=== PATIENT | female | born 1955 | race Caucasian/White ===

== ENCOUNTER 2020-01-30 12:13 | Emergency (ER) | payer MEDICAID, SELFPAY ==
[2020-01-30 12:27] VITALS: BP 137/56; PULSE 64; RESP 16; TEMP 36.8; O2SAT 98; BMI 27.3
--- NOTE | 2020-01-30 12:55 | PC.NURSE ---
THIS RN TO CHECK ON PT, PT NOT IN BED.
--- NOTE | 2020-01-30 13:04 | ED.FALL ---
HPI - Fall General Chief Complaint: Fall Stated Complaint: fall Time Seen by Provider: 01/30/20 12:46 Source: EMS Mode of arrival: EMS Limitations: no limitations History of Present Illness HPI Narrative: Patient presenting via EMS from [facility] with complaint of fall and pain in the right knee left hand and right-sided jaw. she has a history of substance abuse she denies using any drugs. she reports she tripped and fell. Patient was evaluated directly on arrival in the EMS stretcher. complaint: fall Fall from: standing Fall witnessed: no Place fall occurred: home Loss of consciousness: none Prolonged down time: no Symptoms prior to fall: none Context: tripped/slipped Location of injury: other ( Right-sided jaw, right knee, left hand) Location of injury - extremities: left: hand and right: knee Related Data Allergies Allergy/AdvReac Type Severity Reaction Status Date / Time metoclopramide [Reglan] Allergy Unknown Verified 07/08/15 00:00 From REGLAN Allergy Unknown UNKNOWN Uncoded 12/25/19 15:05 Review of Systems Review of Systems: Yes all other systems are reviewed and are negative [facility] Past Medical History Medical History (Updated 01/30/20 @ 13:09 by John Centeno NP) Asthma Social History Social History Alcohol intake: never Smoked in Last 30 Days: No Use of substances other than those prescribed or required for medical reasons: No Physical Exam Vital Signs: Vital Signs: Vital Signs Temp Pulse Resp BP Pulse Ox 01/30/20 12:27 98.2 F 64 16 137/56 L 98 Body Mass Index 27.3 Reviewed Const: General: cooperative and healthy appearing; No acute distress or intoxicated appearing Nutritional Appearance: average body habitus Orientation/consciousness: patient oriented x3 HENMT: Head: Yes normal to inspection Ears: hearing grossly normal bilaterally Eyes: General: appearance normal, both eyes and all related structures Visual Farfan: normal visual farfan by confrontation Neck: Neck: Yes normal visual inspection and No tender Thyroid: Thyroid normal Chest: Chest palpation & inspection: normal inspection of the chest Resp: Effort & Inspection: normal respiratory effort Cardio: Jugular venous distension: no JVD GI: Inspection: Yes normal to inspection Percussion: Yes normal to percussion Auscultation: normal bowel sounds : General: Yes no CVA tenderness Back/Spine/Pelvis: Back: no CVA tenderness Skin: General skin exam: no rashes or lesions noted Neuro: General: patient oriented x3 Extrem: Other: exam limited EMS stretcher but no obvious deformity. She does have slight ecchymosis to the forehead. Course Course Course Narrative: Patient evaluated directly upon arrival in EMS stretcher subsequently patient was placed in ED bed 13- after my initial evaluation I presented to bedside exactly 3 minutes later and patient had eloped. The RN along myself as well as other staff looked for the patient in the ED bathrooms as well as waiting room and attempted to call the number listed no answer. Seen walking out in no acute distress by triage nurse. Discharge Plan Discharge Clinical Impression: Fall Patient Disposition: Elopement
== END 2020-01-30 13:42 | disposition left against medical advice (07) ==
PROVIDERS: Emergency Provider Emergency Medicine
DX: T14.90XA Injury, unspecified, initial encounter (principal); W18.30XA Fall on same level, unspecified, initial encounter; Y93.9 Activity, unspecified; Y92.59 Other trade areas as the place of occurrence of the external cause; Y99.9 Unspecified external cause status
CPT/HCPCS: 99281; 99284

== ENCOUNTER 2020-02-23 15:55 | Emergency (ER) | payer MEDICAID, SELFPAY ==
[2020-02-23 17:06] VITALS: BP 110/77; PULSE 60; RESP 16; TEMP 36.6; O2SAT 100; BMI 27.3
--- NOTE | 2020-02-23 19:44 | PC.NURSE ---
PT WAS CALLED X 2 AT 1845 AND 1900. JONOT
--- NOTE | 2020-02-23 20:54 | PC.NURSE ---
NO ANSWER WHEN CALLED TO ROOM.
== END 2020-02-23 21:16 | disposition left against medical advice (07) ==
LOC: HO.ED 21:09
PROVIDERS: Emergency Provider Internal Medicine
DX: M54.5 Low back pain (principal)
CPT/HCPCS: 99282

== ENCOUNTER 2020-03-18 15:03 | Emergency (ER) | payer MEDICAID, SELFPAY ==
[2020-03-18 15:13] VITALS: BP 106/72; PULSE 80; RESP 18; TEMP 36.7; O2SAT 98; BMI 28.3
--- NOTE | 2020-03-18 17:33 | ED_ITS ---
HPI - General Adult General Chief complaint: General Medical Stated complaint: Insect Time Seen by Provider: 03/18/20 17:33 Source: patient Mode of arrival: ambulatory Limitations: no limitations History of Present Illness HPI narrative: 55-year-old female bloated past medical history presenting with complaint of states he feels like he has insect bites all over her she has been staying at a hotel and feels there is a infestation of bedbugs there. Onset (ago): day(s) Severity: mild Associated symptoms: denies other symptoms Treatments prior to arrival: none Related Data Previous Rx's Medication Instructions Recorded permethrin [Elimite] 1 appl TOPICAL Q14D #60 g 03/18/20 Allergies Allergy/AdvReac Type Severity Reaction Status Date / Time metoclopramide [Reglan] Allergy Unknown Verified 07/08/15 00:00 From REGLAN Allergy Unknown UNKNOWN Uncoded 12/25/19 15:05 Review of Systems Review of Systems: Constitutional: No Weight loss, No Fever, No Chills, No Night Sweats, No Fatigue, No Malaise ENT/Mouth: No Hearing loss, No Ear Pain, No Nasal Congestion, No Sinus Pain, No Hoarseness, No sore throat, No Rhinorrhea, No Swallowing Difficulty Eyes: No Eye Pain, No Swelling, No Redness, No Foreign Body, No Discharge, No Vision Changes Cardiovascular: No Chest Pain, No SOB, No Dyspnea on Exertion, No Orthopnea, No Edema, No Palpitations Respiratory: No Cough, No Sputum, No Wheezing Gastrointestinal: No Nausea, No Vomiting, No Diarrhea, No Constipation, No abdominal Pain Genitourinary: no irregular bleeding, No Dysuria, No Urinary Frequency, No Hematuria, No Urinary Incontinence, No Urgency Musculoskeletal: No joint pain, No Myalgias, No Joint Swelling Skin: No Skin Lesions, No rash Neuro: No Weakness, No Numbness, No Paresthesias Psych: No Anxiety/Panic, No Depression, No SI/HI/AH/VH, No Social Issues Heme/Lymph: No Bruising, No Bleeding,No Lymphadenopathy Endocrine: No Polyuria, No Polydipsia, No Temperature Intolerance Yes all other systems are reviewed and are negative [facility] Past Medical History Medical History (Updated 03/18/20 @ 17:36 by John Centeno NP) Asthma Social History Social History Alcohol intake: never Smoked in Last 30 Days: Yes Substance Use Type: Marijuana and Methamphetamine Advance Directives: No Advance Directives Information Provided: Yes Physical Exam Vital Signs: Vital Signs: Last Vital Signs Temp 98.1 F 03/18/20 15:13 Pulse 80 03/18/20 15:13 Resp 18 03/18/20 15:13 BP 106/72 03/18/20 15:13 Pulse Ox 98 03/18/20 15:13 Body Mass Index 28.3 Reviewed Const: General: cooperative and healthy appearing; No acute distress or intoxicated appearing Nutritional Appearance: average body habitus Orientation/consciousness: patient oriented x3 HENMT: Head: Yes normal to inspection Ears: hearing grossly normal bilaterally Eyes: General: appearance normal, both eyes and all related structures Visual Farfan: normal visual farfan by confrontation Chest: Chest palpation & inspection: normal inspection of the chest Resp: Effort & Inspection: normal respiratory effort Cardio: Jugular venous distension: no JVD Skin: Other: Few dispersed superficial excoriation carvajal consistent with scratch carvajal on her back some on the upper arm and her lower legs states will get these intermittently between his toes sometimes. No overt erythema. Neuro: General: patient oriented x3 Extrem: General: Yes normal to inspection Course Course Course Narrative: Bedbugs versus scabies will discharge with for medicine home care instructions, Dorothy care, prevention, follow-up provided. Discharge Plan Discharge Clinical Impression: Insect bite Qualifiers: Encounter type: initial encounter Patient Disposition: Home, Self-Care Instructions: Insect Bite or Sting (ED), Bed Bugs (ED) Additional Instructions: Wash all belongings with warm water Medication regimen as prescribed Consult past control as discussed Return if any concerns or worsening symptoms Thank you Prescriptions: New permethrin [Elimite] 5 % cream 1 appl topical Q14D Qty: 60 RF: 1 Referrals: [facility] [Primary Care Provider] - 10 days
== END 2020-03-18 17:55 | disposition home or self-care (01) ==
PROVIDERS: Emergency Provider Internal Medicine
DX: T14.8XXA Other injury of unspecified body region, initial encounter (principal); W57.XXXA Bitten or stung by nonvenomous insect and other nonvenomous arthropods, initial encounter; Y93.84 Activity, sleeping; Y92.59 Other trade areas as the place of occurrence of the external cause; Y99.9 Unspecified external cause status
CPT/HCPCS: 99284

== ENCOUNTER 2020-06-10 18:04 | Emergency (ER) | payer MEDICAID, SELFPAY ==
[2020-06-10 18:14] VITALS: BP 128/53; BP 140/70; PULSE 66; PULSE 74; RESP 12; TEMP 36.6; O2SAT 100; O2SAT 98; BMI 24.9
--- NOTE | 2020-06-10 18:35 | PC.NURSE ---
items decon by security, changed into hospital attire, waiting eval by provider. vss.
--- NOTE | 2020-06-10 18:37 | MHC.RECOVSUP ---
? Reason for consult Overdose o Current location: ED18H o Identified substance use concern: Heroin - Overdose - Withdrawal - Support ? Intervention: o Community resources provided o Harm reduction discussion ? Plan: o Patient to follow up with H after discharge ? Additional information: Patient cant go to detox today due to her property is in a hotel room. I was able to give patient resources to where she can go tomorrow and get the help she needs to get to detox.
--- NOTE | 2020-06-10 20:27 | ED.OVERDOSE ---
HPI - Overdose General Chief Complaint: Overdose Stated Complaint: OD Time Seen by Provider: 06/10/20 18:33 Source: EMS Mode of arrival: EMS Limitations: no limitations History of Present Illness HPI Narrative: 65-year-old female with history of polysubstance abuse occasional cocaine and opiates presenting via EMS for overdose on heroin. For EMS patient lethargic but easy to arouse to verbal stimuli she admitted to doing 4 bags of heroin which she states she occasionally does. She denies any intentional overdose to harm herself denies any other illicit drugs. Denies any medical problems at this time. complaint: accidental overdose Treatments Prior to Arrival: oxygen Related Data Previous Rx's Medication Instructions Recorded permethrin [Elimite] 1 appl TOPICAL Q14D #60 g 03/18/20 Allergies Allergy/AdvReac Type Severity Reaction Status Date / Time metoclopramide [Reglan] Allergy Unknown Verified 07/08/15 00:00 From REGLAN Allergy Unknown UNKNOWN Uncoded 12/25/19 15:05 Review of Systems Review of Systems: Constitutional: No Weight loss, No Fever, No Chills, No Night Sweats, No Fatigue, No Malaise ENT/Mouth: No Hearing loss, No Ear Pain, No Nasal Congestion, No Sinus Pain, No Hoarseness, No sore throat, No Rhinorrhea, No Swallowing Difficulty Eyes: No Eye Pain, No Swelling, No Redness, No Foreign Body, No Discharge, No Vision Changes Cardiovascular: No Chest Pain, No SOB, No Dyspnea on Exertion, No Orthopnea, No Edema, No Palpitations Respiratory: No Cough, No Sputum, No Wheezing, No Dyspnea Gastrointestinal: No Nausea, No Vomiting, No Diarrhea, No Constipation, No abdominal Pain, No Hematochezia, No Melena Genitourinary: no irregular bleeding, No Dysuria, No Urinary Frequency, No Hematuria, No Urinary Incontinence, No Urgency, No Flank Pain, No Urinary Flow Changes, No Hesitancy Musculoskeletal: No joint pain, No Myalgias, No Joint Swelling Skin: No Skin Lesions, No rash Neuro: No Weakness, No Numbness, No Paresthesias, No Loss of Consciousness, No Dizziness, No Headache Psych: No Anxiety/Panic, No Depression, No SI/HI/AH/VH Heme/Lymph: No Bruising, No Bleeding,No Lymphadenopathy Endocrine: No Polyuria, No Polydipsia, No Temperature Intolerance Yes all other systems are reviewed and are negative [facility] Past Medical History Medical History Asthma Social History Social History Alcohol intake: never Use of substances other than those prescribed or required for medical reasons: Yes Substance Use Type: Heroin Advance Directives: No Advance Directives Information Provided: Yes Physical Exam Vital Signs: Vital Signs: Last Vital Signs Temp 97.8 F 06/10/20 18:14 Pulse 66 06/10/20 18:14 Resp 12 06/10/20 18:14 BP 128/53 L 06/10/20 18:14 Pulse Ox 100 06/10/20 18:14 Body Mass Index 24.9 Reviewed Const: Other: Disheveled and poorly kempt. Found laying in recumbent position in bed at 45 degrees easy to arouse to verbal stimuli. She noted bedside monitor without any supplemental oxygen she is 100% on room air with heart rate 68. General: cooperative Nutritional Appearance: average body habitus Orientation/consciousness: patient oriented x3 HENMT: Head: Yes normal to inspection Ears: hearing grossly normal bilaterally Eyes: General: appearance normal, both eyes and all related structures Visual Farfan: normal visual farfan by confrontation Neck: Neck: Yes normal visual inspection, No positive Brudzinski's sign, No positive Kernig's sign and No tender Thyroid: Thyroid normal Chest: Chest palpation & inspection: normal inspection of the chest Resp: Effort & Inspection: normal respiratory effort Auscultation: clear to auscultation bilaterally Cardio: Jugular venous distension: no JVD Rhythm: regular rhythm Heart sounds: S1 normal heart sound present and S2 normal heart sound present GI: Inspection: Yes normal to inspection Palpation (GI): Soft to palpation Percussion: Yes normal to percussion Auscultation: normal bowel sounds : General: Yes no CVA tenderness Back/Spine/Pelvis: Back: no CVA tenderness Skin: General skin exam: no rashes or lesions noted Neuro: General: patient oriented x3 Extrem: General: Yes normal to inspection Course Course Course Narrative: Has been stable here observed for couple hours no SI or HI. Met was substance abuse counselor plan for recovery program tomorrow. Discharge Plan Discharge Clinical Impression: Drug overdose Patient Disposition: Home, Self-Care Instructions: Opioid Safety (ED), Polysubstance Abuse (ED) Additional Instructions: Please go directly to the detox program as discussed with the substance abuse counselor Prescriptions: No Action permethrin [Elimite] 5 % cream 1 appl topical Q14D Qty: 60 RF: 1 Referrals: [facility] [Primary Care Provider] - 2 days
[2020-06-10 20:34] VITALS: BP 127/50; PULSE 61; RESP 13; TEMP 36.8; O2SAT 99
--- NOTE | 2020-06-10 21:34 | PC.NURSE ---
PT REFUSING TO GO HOME AT THIS TIME. PT STATES I DON'T HAVE A PLACE TO GO, PT REFUSING TO GET D/C AT THIS TIME. CHG NURSE AT BEDSIDE TO CONVERSE WITH THE PT. WILL CONTINUE TO MONITOR PT AND TRY AGAIN TO DISCHARGE AT A LATER TIME.
== END 2020-06-10 22:44 | disposition home or self-care (01) ==
PROVIDERS: Emergency Provider Emergency Medicine
DX: T40.1X1A Poisoning by heroin, accidental (unintentional), initial encounter (principal); R53.83 Other fatigue; Y92.9 Unspecified place or not applicable; F11.10 Opioid abuse, uncomplicated; F14.10 Cocaine abuse, uncomplicated; J45.909 Unspecified asthma, uncomplicated
CPT/HCPCS: 99284

== ENCOUNTER 2020-08-05 05:10 | Emergency (ER) | payer MEDICAID, SELFPAY ==
--- NOTE | ~2020-08-05 | CT_ITS ---
EXAMINATION: CT ABDOMEN AND PELVIS WITH CONTRAST CLINICAL INFORMATION: Right lower quadrant pain, epigastric pain, status post fall hitting right side. COMPARISON: May 28, 2019 and January 12, 2008 TECHNIQUE: Multidetector volumetric images were obtained from the superior aspect of the liver through the pubic symphysis following administration 85 mL of Omnipaque 350 intravenous contrast. Sagittal and coronal reformatted images were obtained on the technologist's workstation. Oral contrast: No This CT examination was performed using dose optimization techniques as appropriate, variously including the following: *Automated exposure control *Adjustment of mA and/or kV according to patient size (this includes techniques or standardized protocols for targeted exams where dose is matched to indication/reason for exam; i.e. extremities or head) *Use of iterative reconstruction technique DLP: 495 mGy-cm FINDINGS: LUNG BASES: There is dependent atelectasis seen both lung bases. No pleural or pericardial effusion. LIVER, GALLBLADDER, AND BILIARY TREE: The liver is normal in size, shape, and attenuation. No focal hepatic lesion or biliary ductal dilatation is present. No hepatic laceration identified. No subcapsular fluid collection. The gallbladder is unremarkable with no evidence of radiopaque gallstones, gallbladder wall thickening, or obvious pericholecystic inflammatory changes. PANCREAS: There is a 1.3 cm cystic lesion seen adjacent to the body of the pancreas which may represent a benign serous or mucinous tumor. This has been present and stable since prior study of January 12, 2008 SPLEEN: Unremarkable. No laceration or subcapsular collection identified. ADRENAL GLANDS: Unremarkable. KIDNEYS AND URETERS: The kidneys are normal in size, shape, and attenuation. There are a few bilateral renal cysts present. The largest is within the upper pole of the right kidney measuring 2.6 cm in diameter. No hydronephrosis, hydroureter, or calculi seen. No perinephric stranding. No subcapsular fluid collection. BLADDER: Unremarkable. GASTROINTESTINAL TRACT: There is a small hiatal hernia present. No dilated loops of large or small bowel are evident. No pericolonic inflammatory change. There is mild diverticulosis of the sigmoid colon without evidence of acute diverticulitis. There is no evidence of acute appendicitis. No free air or free fluid. ABDOMINAL WALL: No significant hernia is appreciated. LYMPH NODES: No lymphadenopathy appreciated. VASCULAR: Visceral vessels are patent. No abdominal aortic aneurysm. Portal vein is patent. PELVIC VISCERA: Unremarkable. No free fluid. OSSEOUS STRUCTURES: There is an acute fracture of the posterior lateral aspect of the right 11th rib. CT/CT abdomen pelvis w con IMPRESSION: No evidence of solid organ laceration or subcapsular fluid collection. .Stable 1.3 cm cystic lesion adjacent to the artery of the pancreas. Bilateral renal cysts. Acute nondisplaced fracture of the right 11th rib.
--- NOTE | ~2020-08-05 | XR_ITS ---
EXAMINATION: XR RIBS, RIGHT CLINICAL INFORMATION: Painful ribs COMPARISON: 07/25/2014 TECHNIQUE: 3 views of the right ribs were obtained. FINDINGS: The visualized lungs are clear. No pneumothorax. No significant pleural effusion. The cardiomediastinal silhouette is unremarkable. Targeted right rib radiographs show no fracture or cortical disruption. Alignment is maintained. XR/XR ribs RT 2V IMPRESSION: No acute abnormality of the right ribs identified.
[2020-08-05 05:27] VITALS: BP 154/98; PULSE 69; RESP 16; TEMP 36.6; O2SAT 100; BMI 31.2
[2020-08-05 05:34] VITALS: BP 154/98; PULSE 76; O2SAT 100
--- NOTE | 2020-08-05 06:08 | ED.FALL ---
HPI - Fall General Chief Complaint: Fall Stated Complaint: R back pain s/p fall Time Seen by Provider: 08/05/20 05:52 Source: patient and EMS Mode of arrival: EMS Limitations: no limitations History of Present Illness HPI Narrative: Patient comes emergency room complaining of right rib pain . Patient states she was trying to unclog her bathroom, patient slipped, fell into the bathtub, hit her ribs on the right side. Patient states she did not hit her head, did not lose consciousness, denies being on blood thinners. Patient states she was able to get up, call for help. Patient is by herself. complaint: fall Related Data Previous Rx's Medication Instructions Recorded permethrin [Elimite] 1 appl TOPICAL Q14D #60 g 03/18/20 Allergies Allergy/AdvReac Type Severity Reaction Status Date / Time metoclopramide [Reglan] Allergy Unknown Verified 07/08/15 00:00 From REGLAN Allergy Unknown UNKNOWN Uncoded 12/25/19 15:05 Review of Systems Review of Systems: Constitutional : No Weight loss, No Fever, No Chills, No Night Sweats, No Fatigue, No Malaise ENT/Mouth : No Hearing loss, No Ear Pain, No Nasal Congestion, No Sinus Pain, No Hoarseness, No sore throat, No Rhinorrhea, No Swallowing Difficulty Eyes: No Eye Pain, No Swelling, No Redness, No Foreign Body, No Discharge, No Vision Changes Cardiovascular : No Chest Pain, No SOB, No Dyspnea on Exertion, No Orthopnea, No Edema, No Palpitations Respiratory : No Cough, No Sputum, No Wheezing, No Smoke Exposure, No Dyspnea, complaining of right rib pain Gastrointestinal : No Nausea, No Vomiting, No Diarrhea, No Constipation, No abdominal Pain, No Hematochezia, No Melena Genitourinary : no irregular bleeding, No Dysuria, No Urinary Frequency, No Hematuria, No Urinary Incontinence, No Urgency, No Flank Pain, No Urinary Flow Changes, No Hesitancy Musculoskeletal : No joint pain, No Myalgias, No Joint Swelling Skin : No Skin Lesions, No rash Neuro : No Weakness, No Numbness, No Paresthesias, No Loss of Consciousness, No Dizziness, No Headache Psych : No Anxiety/Panic, No Depression, No SI/HI/AH/VH, No Social Issues, Heme/Lymph: No Bruising, No Bleeding,No Lymphadenopathy Endocrine : No Polyuria, No Polydipsia, No Temperature Intolerance [facility] Past Medical History Medical History (Updated 08/05/20 @ 06:10 by Magdalena Andrade MD) Asthma Substance abuse Social History Social History Alcohol intake: never Substance Use Type: Heroin Advance Directives: No Physical Exam Vital Signs: Vital Signs: Last Vital Signs Temp 98.1 F 08/05/20 07:22 Pulse 65 08/05/20 07:22 Resp 16 08/05/20 07:22 BP 131/75 08/05/20 07:22 Pulse Ox 97 08/05/20 07:22 Body Mass Index 31.2 Appearance: Alert. Oriented X3. No acute distress. Eyes: Pupils equal, round and reactive to light. ENT: Pharynx normal. Neck: Normal inspection. Neck supple. No lymph nodes noted. No crepitus CVS: Normal heart rate and rhythm. Pulses normal. Normal S1 and S2 Respiratory: No respiratory distress. Breath sounds normal. No Wheezing. No rales . Pain to palpation on the right ribs Abdomen: Soft and nontender. No rigidity. No distention. Abdominal tenderness on deep palpation in the right lower quadrant and epigastric pain with rebound and guarding Skin: Skin warm and dry. Normal skin color. Normal skin turgor. Extremities: No lower extremity edema. No lower extremity edema. No Lacerations. No Rash Neuro: Oriented X 3. No motor deficit. No sensory deficit. Moving all extermities. No slurred speech. Course Course Course Narrative: Chest x-ray did not show any rib fractures. CT scan and labs pending. Sign-out given to Dr. Barton Discharge Plan Discharge Prescriptions: No Action permethrin [Elimite] 5 % cream 1 appl topical Q14D Qty: 60 RF: 1
[2020-08-05 07:22] VITALS: BP 131/75; PULSE 65; RESP 16; TEMP 36.7; O2SAT 97
[2020-08-05 08:34] LABS: MANUAL DIFF FLAG NO
[2020-08-05 08:40] LABS: Basophils Percent Auto 0.1 % (0-2); Eosinophils Percent Auto 0.3 % (0-4); Hematocrit 35.9 % (37-47); Hemoglobin 11.5 g/dl (12.0-16.0); Imm Gran Abs Auto 0.02 X10*3/uL (0.00-0.03); Imm Gran Pct Auto 0.3 % (0.0-0.4); Lymphocytes Absolute Auto 1.8 X10*3/uL (1.2-4.9); Lymphocytes Percent Auto 22.1 % (20-40); Mean Corpuscular Hemoglobin 31.9 pg (27.0-33.0); Mean Corpuscular Volume 99.4 fL (80-98); Mean Platelet Volume 9.5 fL (9.4-12.3); Monocytes Absolute Auto 0.4 X10*3/uL (0.1-1.2); Monocytes Percent Auto 5.4 % (2-11); Neutrophils Absolute Auto 5.7 X10*3/uL (2.0-8.3); Neutrophils Percent Auto 71.8 % (45-73); Platelet Count 229 X10*3/uL (160-400); Red Blood Count 3.61 X10*6/uL (4.20-5.50)
[2020-08-05 09:00] LABS: Alanine Aminotransferase 13 U/L (0-31); Albumin Level 3.9 g/dL (3.5-5.0); Alkaline Phosphatase 86 U/L (39-117); Anion Gap 10 (12-20); Aspartate Amino Transferase 19 U/L (5-31); Bilirubin Direct 0.2 mg/dL (0.0-0.5); Bilirubin Total 0.4 mg/dL (0.0-1.0); Blood Urea Nitrogen 20 mg/dL (9-16); Carbon Dioxide 27 mmol/L (22-29); Chloride 106 mmol/L (96-108); Creatinine Clr Calc Pharmacy 60.4; Estimated Glomerular Filt Rate > 60; Glucose Random 92 mg/dL (60-115); Lipase 8 U/L (8-78); Potassium 4.3 mmol/L (3.3-5.1); Sodium 139 mmol/L (135-145); Total Protein 6.7 g/dL (6.5-8.0)
[2020-08-05 09:08] VITALS: BP 142/71; PULSE 65; RESP 16; O2SAT 98
[2020-08-05] MEDS: iohexoL 350 MG/ML 100 ML INFUS..BTL 85 ML IV (09:25)
[2020-08-05 13:20] VITALS: BP 149/66; PULSE 59; RESP 16; O2SAT 98
[2020-08-05] MEDS: Ketorolac Tromethamine 60 MG/2 ML VIAL IM (13:22)
== END 2020-08-05 13:56 | disposition home or self-care (01) ==
PROVIDERS: Emergency Provider Emergency Medicine
DX: S22.31XA Fracture of one rib, right side, initial encounter for closed fracture (principal); R07.81 Pleurodynia; R10.9 Unspecified abdominal pain; W01.10XA Fall on same level from slipping, tripping and stumbling with subsequent striking against unspecified object, initial encounter; Y93.E9 Activity, other interior property and clothing maintenance; Y92.002 Bathroom of unspecified non-institutional (private) residence as the place of occurrence of the external cause; Y99.9 Unspecified external cause status; Z79.899 Other long term (current) drug therapy
CPT/HCPCS: 36415; 71100; 74177; 80048; 80076; 83690; 85025; 96372; 99283; J1885; Q9967

== ENCOUNTER 2021-12-10 22:07 | Emergency (ER) | payer OTHER, MEDICAID, SELFPAY ==
--- NOTE | ~2021-12-10 | XR_ITS ---
EXAMINATION: XR CHEST 1V XR SHOULDER RT MIN 2V CLINICAL INFORMATION: Fall. Shortness of breath. R. shoulder pain COMPARISON: Test x-ray dated 07/25/2014 TECHNIQUE: AP view of the chest and 3 views of the right shoulder FINDINGS: Normal symmetric lung volumes. No parenchymal consolidation. No pleural effusion. No pneumothorax. Cardiomediastinal silhouette and pulmonary vascularity are within normal limits. No acute osseous abnormalities. Degenerative changes of the glenohumeral and acromioclavicular joints with small moderate marginal osteophytes of the acromioclavicular joint. Soft tissues unremarkable. XR/XR shoulder RT min 2V IMPRESSION: Clear lungs; no pneumothorax. No fractures.
--- NOTE | ~2021-12-10 | XR_ITS ---
EXAMINATION: XR CHEST 1V XR SHOULDER RT MIN 2V CLINICAL INFORMATION: Fall. Shortness of breath. R. shoulder pain COMPARISON: Test x-ray dated 07/25/2014 TECHNIQUE: AP view of the chest and 3 views of the right shoulder FINDINGS: Normal symmetric lung volumes. No parenchymal consolidation. No pleural effusion. No pneumothorax. Cardiomediastinal silhouette and pulmonary vascularity are within normal limits. No acute osseous abnormalities. Degenerative changes of the glenohumeral and acromioclavicular joints with small moderate marginal osteophytes of the acromioclavicular joint. Soft tissues unremarkable. XR/XR chest 1V IMPRESSION: Clear lungs; no pneumothorax. No fractures.
--- NOTE | ~2021-12-10 | CT_ITS ---
EXAMINATION: CT HEAD WITHOUT CONTRAST CT CERVICAL SPINE WITHOUT CONTRAST CLINICAL INFORMATION: Head strike. Altered mental status COMPARISON: CT head 05/27/2019 TECHNIQUE: Imaging was performed from the skull base to vertex without intravenous administration of contrast. In addition, helical noncontrast CT imaging was acquired through the cervical spine and source images were reviewed along with axial reconstructions and sagittal and coronal MPRs. [This CT examination was performed using dose optimization techniques as appropriate, variously including the following: *Automated exposure control *Adjustment of mA and/or kV according to patient size (this includes techniques or standardized protocols for targeted exams where dose is matched to indication/reason for exam; i.e. extremities or head) *Use of iterative reconstruction technique] DLP: 937 mGy-cm FINDINGS: HEAD: No intracranial mass, hemorrhage, or midline shift is visualized. The ventricles and sulci are proportional. No extra-axial collections are identified. The paranasal sinuses and mastoid air cells are well aerated. CERVICAL SPINE: There is no evidence of acute cervical spine fracture. Vertebral bodies remain normal in height. Cervical vertebrae have normal alignment. [There is multilevel degenerative spondylosis of the cervical spine with disc height narrowing and endplate spurs and facet joint arthrosis] No pre- or paravertebral soft tissue abnormality is identified. Limited assessment of the lung apices is unremarkable. CT/CT cervical spine wo IV con IMPRESSION: 1. No acute intracranial pathology. 2. No CT evidence of acute cervical spine fracture or traumatic subluxation
--- NOTE | ~2021-12-10 | XR_ITS ---
EXAMINATION: XR KNEE, LEFT CLINICAL INFORMATION: Pain COMPARISON: None TECHNIQUE: Four views of the left knee. FINDINGS: No acute fracture or dislocation. Moderate medial tibiofemoral compartment joint space narrowing associated marginal osteophytes and subchondral sclerosis. Degenerative subchondral cyst present within the medial tibial plateau. Smaller marginal osteophytes of the patellofemoral and lateral tibiofemoral compartments. No joint effusion. XR/XR knee LT 4V IMPRESSION: No acute fracture or dislocation.
--- NOTE | ~2021-12-10 | CT_ITS ---
EXAMINATION: CT HEAD WITHOUT CONTRAST CT CERVICAL SPINE WITHOUT CONTRAST CLINICAL INFORMATION: Head strike. Altered mental status COMPARISON: CT head 05/27/2019 TECHNIQUE: Imaging was performed from the skull base to vertex without intravenous administration of contrast. In addition, helical noncontrast CT imaging was acquired through the cervical spine and source images were reviewed along with axial reconstructions and sagittal and coronal MPRs. [This CT examination was performed using dose optimization techniques as appropriate, variously including the following: *Automated exposure control *Adjustment of mA and/or kV according to patient size (this includes techniques or standardized protocols for targeted exams where dose is matched to indication/reason for exam; i.e. extremities or head) *Use of iterative reconstruction technique] DLP: 937 mGy-cm FINDINGS: HEAD: No intracranial mass, hemorrhage, or midline shift is visualized. The ventricles and sulci are proportional. No extra-axial collections are identified. The paranasal sinuses and mastoid air cells are well aerated. CERVICAL SPINE: There is no evidence of acute cervical spine fracture. Vertebral bodies remain normal in height. Cervical vertebrae have normal alignment. [There is multilevel degenerative spondylosis of the cervical spine with disc height narrowing and endplate spurs and facet joint arthrosis] No pre- or paravertebral soft tissue abnormality is identified. Limited assessment of the lung apices is unremarkable. CT/CT head/brain wo IV con IMPRESSION: 1. No acute intracranial pathology. 2. No CT evidence of acute cervical spine fracture or traumatic subluxation
--- NOTE | ~2021-12-10 | CT_ITS ---
EXAMINATION CT CHEST, ABDOMEN AND PELVIS WITH CONTRAST CLINICAL INFORMATION: Fall. Altered mental status. COMPARISON: CT abdomen/pelvis dated 08/05/2020 TECHNIQUE: Multidetector volumetric CT imaging of the chest, abdomen and pelvis was obtained after the administration of 85 mL of intravenous Omnipaque 350 without immediate adverse reactions. Coronal and sagittal reformats were reviewed. This CT examination was performed using dose optimization techniques as appropriate, variously including the following: *Automated exposure control *Adjustment of mA and/or kV according to patient size (this includes techniques or standardized protocols for targeted exams where dose is matched to indication/reason for exam; i.e. extremities or head) *Use of iterative reconstruction technique DLP: 658 mGy-cm. FINDINGS: CHEST LUNGS/PLEURA: The lungs are clear with no evidence of inflammation or nodules. There is no pleural effusion. No pleural mass or thickening. MEDIASTINUM/TYLER: Mild cardiomegaly. No pericardial effusion. Great vessels normal caliber. No mediastinal or hilar lymphadenopathy. Imaged lower neck unremarkable. CHEST WALL/AXILLA: Unremarkable. ABDOMEN/PELVIS HEPATOBILIARY: Liver normal in size, contour and morphology. No suspicious lesions. No intra or extrahepatic biliary dilation. Gallbladder unremarkable. 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 SPLEEN: Unremarkable. ADRENAL GLANDS: Unremarkable. KIDNEYS, URETERS AND BLADDER: Kidneys normal in size, axis and morphology demonstrating symmetric enhancement. No hydronephrosis or urinary calculi. Stable benign cysts. No follow-up required. Ureters normal in course and caliber. Bladder grossly unremarkable.. GASTROINTESTINAL TRACT: Small sliding-type hiatal hernia. Sigmoid colonic diverticulosis. No evidence of diverticulitis. Normal appendix. Small bowel unremarkable. PELVIC VISCERA: Uterus and adnexa unremarkable. LYMPH NODES: No lymphadenopathy. PERITONEUM/BODY WALL: Unremarkable. VASCULAR STRUCTURES: Aorta is atherosclerotic but normal caliber. OSSEOUS STRUCTURES No acute or suspicious osseous abnormalities. Healed left lateral fourth through sixth rib fractures. CT/CT abdomen pelvis w IV con IMPRESSION: * No acute traumatic injury within the chest, abdomen and pelvis. * No acute fractures. * Sigmoid colonic diverticulosis without evidence of diverticulitis. 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 The ACR does not mandate follow-up for pancreatic cystic lesions which have been stable for more than 10 years.
--- NOTE | 2021-12-10 22:20 | ECG_ITS ---
Test Reason : AMS Blood Pressure : / mmHG Vent. Rate : 061 BPM Atrial Rate : 061 BPM P-R Int : 128 ms QRS Dur : 084 ms QT Int : 454 ms P-R-T Axes : 076 071 053 degrees QTc Int : 457 ms Normal sinus rhythm Normal ECG When compared with ECG of 28-MAY-2019 11:42, Vent. rate has decreased BY 48 BPM Referred By: Debbie Almazan Electronically Signed By:EVAN TAPIA
--- NOTE | 2021-12-10 22:21 | ED.GENADULT ---
HPI - General Adult General Chief complaint: Fall <JAZMÍN Enciso Last Filed: 12/11/21 01:51> Stated complaint: ETOH/Drug Use/Fall <JAZMÍN Enciso Last Filed: 12/11/21 01:51> Time Seen by Provider: 12/10/21 22:20 <JAZMÍN Enciso Last Filed: 12/11/21 01:51> Source: patient and EMS <JAZMÍN Enciso Last Filed: 12/11/21 01:51> Mode of arrival: EMS <JAZMÍN Enciso Last Filed: 12/11/21 01:51> Limitations: other (under the influence of drugs ) <JAZMÍN Enciso Last Filed: 12/11/21 01:51> History of Present Illness HPI narrative: This is a 66-year-old female presenting to the emergency department with EMS complaining of right shoulder pain, left knee pain, headache status post trip and fall, patient reports that today she used multiple drugs around 17:30. She reports using a few bags of heroin and smoking crack, she also reports drinking alcohol she tells me she had 3 mixed drinks. She reports after drinking she tripped and fell, she tells me she is not sure how she landed, she tells me she did not lose consciousness. She is currently reporting a diffuse headache, without vision changes, dizziness or weakness. She reports it feels like her typical headache. Patient was collared by the fire department. At this time denies chest pain, shortness of breath, nausea, vomiting, abdominal pain, vision changes, dizziness, weakness. Patient is not on blood thinners. GCS score 15 on arrival. NIH stroke scale 0. <JAZMÍN Enciso Last Filed: 12/11/21 01:51> Related Data Home medications: Previous Rx's Medication Instructions Recorded permethrin 5 % topical cream 1 appl topical Q14D 2 doses #60 03/18/20 (Elimite) grams naproxen 500 mg tablet (Naprosyn) 500 mg PO BID #20 tabs 08/05/20 <JAZMÍN Enciso Last Filed: 12/11/21 01:51> Allergies/adverse reactions: Allergies Allergy/AdvReac Type Severity Reaction Status Date / Time metoclopramide [Reglan] Allergy Unknown Verified 07/08/15 00:00 From [facility] Allergy Unknown UNKNOWN Uncoded 12/25/19 15:05 <JAZMÍN Enciso - Last Filed: 12/11/21 01:51> Review of Systems Review of Systems: Constitutional : No Weight loss, No Fever, No Chills, No Fatigue, No Malaise ENT/Mouth : No sore throat, No Rhinorrhea Eyes: No Eye Pain, No Swelling, No Redness Cardiovascular : No Chest Pain, No SOB, No Dyspnea on Exertion, No Orthopnea, No Edema, No Palpitations Respiratory : No Cough, No Sputum, No Wheezing Gastrointestinal : No Nausea, No Vomiting, No Diarrhea, No Constipation, No abdominal Pain, No Hematochezia, No Melena Genitourinary : No Dysuria, No Urinary Frequency, No Hematuria, Musculoskeletal : + joint pain, No Myalgias, No Joint Swelling Skin : No Skin Lesions, No rash Neuro : No Weakness, No Numbness, No Dizziness, + Headache All other systems reviewed and are negative <JAZMÍN Enciso - Last Filed: 12/11/21 01:51> Yes all other systems are reviewed and are negative <JAZMÍN Enciso - Last Filed: 12/11/21 01:51> ON LICENSE OF [facility] Past Medical History Attestation statement: The following information was validated with the patient. <JAZMÍN Enciso - Last Filed: 12/11/21 01:51> Source: old records reviewed and nursing notes reviewed <JAZMÍN Enciso - Last Filed: 12/11/21 01:51> Medical History: Medical History Asthma Substance abuse <JAZMÍN Enciso Last Filed: 12/11/21 01:51> Social History Social History: Social History Alcohol intake: never Patient Tobacco Use Status: Current everyday Tobacco user Smoked in Last 30 Days: Yes Use of substances other than those prescribed or required for medical reasons: Yes Substance Use Type: Crack/Cocaine and Heroin Last Used Substance: Hours (ago) Advance Directives: No Advance Directives Information Provided: No <JAZMÍN Enciso - Last Filed: 12/11/21 01:51> Physical Exam ED Vital Signs: Vital Signs - 24 hr 12/10/21 22:54 12/11/21 01:25 12/11/21 03:54 Temperature 98.7 F 98.2 F Pulse Rate 66 61 74 Respiratory Rate 15 15 16 Blood Pressure 106/49 L 120/72 Pulse Oximetry 100 99 98 Oxygen Delivery Method Room Air Room Air Room Air BMI result Body Mass Index 27.3 <JAZMÍN Enciso - Last Filed: 12/11/21 01:51> Vital Signs - 24 hr 12/10/21 22:54 12/11/21 01:25 12/11/21 03:54 Temperature 98.7 F 98.2 F Pulse Rate 66 61 74 Respiratory Rate 15 15 16 Blood Pressure 106/49 L 120/72 Pulse Oximetry 100 99 98 Oxygen Delivery Method Room Air Room Air Room Air BMI result Body Mass Index 27.3 <Melvin Ahn MD - Last Filed: 12/11/21 07:08> Appearance: Alert.? Oriented X3.? No acute distress.? Head: Normocephalic, atraumatic, no step-offs or deformities Eyes: Pupils equal, round and reactive to light.? Neck: Normal inspection.? Neck supple.? Patient in cervical collar. CVS: Normal heart rate and rhythm.? Pulses normal.? Respiratory: No respiratory distress.? Breath sounds normal.? Abdomen: Soft and nontender.? Skin: Skin warm and dry.? Normal skin color.? Normal skin turgor.? Extremities: No lower extremity edema.? No calf ttp. 5/5 strength to bilateral upper and lower extremities Back: No midline tenderness, no C-spine tenderness, full range of motion, no CVA tenderness bilaterally Neuro: Oriented X 3.? No motor deficit.? No sensory deficit. CN 2-12 intact . Normal [id number], [id number]. Steady tandem gait. No saddle paresthesias. <JAZMÍN Enciso - Last Filed: 12/11/21 01:51> Course Reevaluation(s) Reevaluation #1: Patient's CBC with a slight anemia, around patient's baseline. Normal sinus rhythm, no signs of acute ischemia. CT of head and cervical spine with no acute findings. CT of chest, abdomen and pelvis pending, x-rays pending. Chemistry, UA, urine toxicology, ethanol pending. Sign out to Dr. Ahn pending listed above. <JAZMÍN Enciso - Last Filed: 12/11/21 01:51> Time: 01:48 <JAZMÍN Enciso - Last Filed: 12/11/21 01:51> Reevaluation #2: I assumed care of this patient from my colleague, physician resident assistant, Debbie Almazan at 02:00 hours Pending the patient's radiology evaluation. The patient had a CT scan of the chest, abdomen pelvis which did not reveal any acute findings. The patient had an x-ray of her shoulder any which revealed no acute fractures. Patient's urine tox screen was positive for opiates, fentanyl and cocaine. I did discuss these findings with the patient. The patient states she is currently in a methadone program and does not want any opiate counseling. The patient was discharged with intranasal Narcan, printed and verbal instructions. <Melvin Ahn MD - Last Filed: 12/11/21 07:08> Time: 07:03 <Melvin Ahn MD - Last Filed: 12/11/21 07:08> Medical Decision Making [facility] Narrative Medical decision making narrative: [id number] 66-year-old male presents with polysubstance abuse, ethanol use, status post fall complaining of right shoulder pain, headache, left knee PE. Denies SI and HI. Physical examination benign. In at this time is medical clearance, substance use disorder evaluation. <JAZMÍN Enciso - Last Filed: 12/11/21 01:51> Medical Records Medical records reviewed: Yes I reviewed the patient's medical records. <JAZMÍN Enciso - Last Filed: 12/11/21 01:51> Lab Data Lab results reviewed: Yes I reviewed the patient's lab results. <JAZMÍN Enciso Last Filed: 12/11/21 01:51> Result diagrams: : 12/11/21 01:19 12/11/21 01:19 <JAZMÍN Enciso - Last Filed: 12/11/21 01:51> Labs: Lab Results 12/11/21 12/11/21 12/11/21 Range/Units 01:04 01:19 01:19 WBC 4.6 L (4.8-10.8) X10*3/uL RBC 3.02 L (4.20-5.50) X10*6/uL Hgb 9.9 L (12.0-16.0) g/dl Hct 29.9 L (37.0-47.0) % MCV 99.0 H (80.0-98.0) fL MCH 32.8 (27.0-33.0) pg MCHC 33.1 (31.0-35.0) g/dl RDW 12.9 (11.0-16.0) % Plt Count 174 (160-400) X10*3/uL MPV 9.7 (9.4-12.3) fL Immature Gran % (Auto) 0.2 (0.0-0.4) % Neut % (Auto) 47.0 (45-73) % Lymph % (Auto) 44.2 H (20-40) % Bea[place]gard % (Auto) 7.1 (2-11) % Eos % (Auto) 1.1 (0-4) % Baso % (Auto) 0.4 (0-2) % Lymph # (Auto) 2.1 (1.2-4.9) X10*3/uL [place] # (Auto) 0.3 (0.1-1.2) X10*3/uL Eos # (Auto) 0.1 (0.0-0.4) X10*3/uL Baso # (Auto) 0.0 (0.0-0.2) X10*3/uL Abs Immat Gran (auto) 0.01 (0.00-0.03) X10*3/uL Absolute Neuts (auto) 2.2 (2.0-8.3) x10*3/uL Absolute Nucleated RBC 0.000 (0.0-0.012) X10*3/uL Nucleated RBC % (auto) 0.0 (0.0-0.2) /100WBC Sodium 141 (135-145) mmol/L Potassium 3.6 (3.3-5.1) mmol/L Chloride 105 (96-108) mmol/L Carbon Dioxide 29 (22-29) mmol/L Anion Gap 11 L (12-20) BUN 11 (9-16) mg/dL Creatinine 0.82 (0.5-1.4) mg/dL Estim Creat Clear Calc 59.3 Estimated GFR > 60 Random Glucose 82 (60-115) mg/dL Calcium 8.2 L D (8.4-10.2) mg/dL Magnesium 2.0 (1.6-2.6) mg/dL Total Bilirubin 0.4 (0.0-1.0) mg/dL AST 23 (5-31) U/L ALT 11 (0-31) U/L Alkaline Phosphatase 74 (39-117) U/L Total Protein 5.9 L (6.5-8.0) g/dL Albumin 3.4 L (3.5-5.0) g/dL Beta HCG, Quant mIU/mL Urine Color Urine Appearance Urine pH (5.0-9.0) Ur Specific [place] (1.005-1.025) Urine Protein (Neg-Trace) mg/dL Urine Glucose (UA) (Negative) mg/dL Urine Ketones (Negative) mg/dL Urine Blood (Negative) Urine Nitrite (Negative) Ur Leukocyte Esterase (Negative) Urine Opiates Screen (Not Detect) Urine Fentanyl Screen (Not Detect) Ur Barbiturates Screen (Not Detect) Ur Phencyclidine Scrn (Not Detect) Ur Amphetamines Screen (Not Detect) U Benzodiazepines Scrn (Not Detect) Urine Cocaine Screen (Not Detect) U Marijuana (THC) Screen (Not Detect) Ethyl Alcohol < 10 mg/dL COVID-19 (ANNELISE) Negative (Negative) COVID-19 Clin Com See Note 12/11/21 12/11/21 12/11/21 Range/Units 01:19 04:46 04:46 WBC (4.8-10.8) X10*3/uL RBC (4.20-5.50) X10*6/uL Hgb (12.0-16.0) g/dl Hct (37.0-47.0) % MCV (80.0-98.0) fL MCH (27.0-33.0) pg MCHC (31.0-35.0) g/dl RDW (11.0-16.0) % Plt Count (160-400) X10*3/uL MPV (9.4-12.3) fL Immature Gran % (Auto) (0.0-0.4) % Neut % (Auto) (45-73) % Lymph % (Auto) (20-40) % [place] % (Auto) (2-11) % Eos % (Auto) (0-4) % Baso % (Auto) (0-2) % Lymph # (Auto) (1.2-4.9) X10*3/uL [place] # (Auto) (0.1-1.2) X10*3/uL Eos # (Auto) (0.0-0.4) X10*3/uL Baso # (Auto) (0.0-0.2) X10*3/uL Abs Immat Gran (auto) (0.00-0.03) X10*3/uL Absolute Neuts (auto) (2.0-8.3) x10*3/uL Absolute Nucleated RBC (0.0-0.012) X10*3/uL Nucleated RBC % (auto) (0.0-0.2) /100WBC Sodium (135-145) mmol/L Potassium (3.3-5.1) mmol/L Chloride (96-108) mmol/L Carbon Dioxide (22-29) mmol/L Anion Gap (12-20) BUN (9-16) mg/dL Creatinine (0.5-1.4) mg/dL Estim Creat Clear Calc Estimated GFR Random Glucose (60-115) mg/dL Calcium (8.4-10.2) mg/dL Magnesium (1.6-2.6) mg/dL Total Bilirubin (0.0-1.0) mg/dL AST (5-31) U/L ALT (0-31) U/L Alkaline Phosphatase (39-117) U/L Total Protein (6.5-8.0) g/dL Albumin (3.5-5.0) g/dL Beta HCG, Quant 3 mIU/mL Urine Color Yellow Urine Appearance Clear Urine pH 7.5 (5.0-9.0) Ur Specific [place] >= 1.030 H (1.005-1.025) Urine Protein Negative (Neg-Trace) mg/dL Urine Glucose (UA) Negative (Negative) mg/dL Urine Ketones Negative (Negative) mg/dL Urine Blood Negative (Negative) Urine Nitrite Negative (Negative) Ur Leukocyte Esterase Negative (Negative) Urine Opiates Screen POSITIVE H (Not Detect) Urine Fentanyl Screen POSITIVE H (Not Detect) Ur Barbiturates Screen Not Detected (Not Detect) Ur Phencyclidine Scrn Not Detected (Not Detect) Ur Amphetamines Screen Not Detected (Not Detect) U Benzodiazepines Scrn Not Detected (Not Detect) Urine Cocaine Screen POSITIVE H (Not Detect) U Marijuana (THC) Screen Not Detected (Not Detect) Ethyl Alcohol mg/dL COVID-19 ([facility]ISE) (Negative) COVID-19 Clin Com <JAZMÍN Enciso - Last Filed: 12/11/21 01:51> Lab Results 12/11/21 12/11/21 12/11/21 Range/Units 01:04 01:19 01:19 WBC 4.6 L (4.8-10.8) X10*3/uL RBC 3.02 L (4.20-5.50) X10*6/uL Hgb 9.9 L (12.0-16.0) g/dl Hct 29.9 L (37.0-47.0) % MCV 99.0 H (80.0-98.0) fL MCH 32.8 (27.0-33.0) pg MCHC 33.1 (31.0-35.0) g/dl RDW 12.9 (11.0-16.0) % Plt Count 174 (160-400) X10*3/uL MPV 9.7 (9.4-12.3) fL Immature Gran % (Auto) 0.2 (0.0-0.4) % Neut % (Auto) 47.0 (45-73) % Lymph % (Auto) 44.2 H (20-40) % Bea[place]gard % (Auto) 7.1 (2-11) % Eos % (Auto) 1.1 (0-4) % Baso % (Auto) 0.4 (0-2) % Lymph # (Auto) 2.1 (1.2-4.9) X10*3/uL [place] # (Auto) 0.3 (0.1-1.2) X10*3/uL Eos # (Auto) 0.1 (0.0-0.4) X10*3/uL Baso # (Auto) 0.0 (0.0-0.2) X10*3/uL Abs Immat Gran (auto) 0.01 (0.00-0.03) X10*3/uL Absolute Neuts (auto) 2.2 (2.0-8.3) x10*3/uL Absolute Nucleated RBC 0.000 (0.0-0.012) X10*3/uL Nucleated RBC % (auto) 0.0 (0.0-0.2) /100WBC Sodium 141 (135-145) mmol/L Potassium 3.6 (3.3-5.1) mmol/L Chloride 105 (96-108) mmol/L Carbon Dioxide 29 (22-29) mmol/L Anion Gap 11 L (12-20) BUN 11 (9-16) mg/dL Creatinine 0.82 (0.5-1.4) mg/dL Estim Creat Clear Calc 59.3 Estimated GFR > 60 Random Glucose 82 (60-115) mg/dL Calcium 8.2 L D (8.4-10.2) mg/dL Magnesium 2.0 (1.6-2.6) mg/dL Total Bilirubin 0.4 (0.0-1.0) mg/dL AST 23 (5-31) U/L ALT 11 (0-31) U/L Alkaline Phosphatase 74 (39-117) U/L Total Protein 5.9 L (6.5-8.0) g/dL Albumin 3.4 L (3.5-5.0) g/dL Beta HCG, Quant mIU/mL Urine Color Urine Appearance Urine pH (5.0-9.0) Ur Specific [place] (1.005-1.025) Urine Protein (Neg-Trace) mg/dL Urine Glucose (UA) (Negative) mg/dL Urine Ketones (Negative) mg/dL Urine Blood (Negative) Urine Nitrite (Negative) Ur Leukocyte Esterase (Negative) Urine Opiates Screen (Not Detect) Urine Fentanyl Screen (Not Detect) Ur Barbiturates Screen (Not Detect) Ur Phencyclidine Scrn (Not Detect) Ur Amphetamines Screen (Not Detect) U Benzodiazepines Scrn (Not Detect) Urine Cocaine Screen (Not Detect) U Marijuana (THC) Screen (Not Detect) Ethyl Alcohol < 10 mg/dL COVID-19 ([facility]ISE) Negative (Negative) COVID-19 Clin Com See Note 12/11/21 12/11/21 12/11/21 Range/Units 01:19 04:46 04:46 WBC (4.8-10.8) X10*3/uL RBC (4.20-5.50) X10*6/uL Hgb (12.0-16.0) g/dl Hct (37.0-47.0) % MCV (80.0-98.0) fL MCH (27.0-33.0) pg MCHC (31.0-35.0) g/dl RDW (11.0-16.0) % Plt Count (160-400) X10*3/uL MPV (9.4-12.3) fL Immature Gran % (Auto) (0.0-0.4) % Neut % (Auto) (45-73) % Lymph % (Auto) (20-40) % [place] % (Auto) (2-11) % Eos % (Auto) (0-4) % Baso % (Auto) (0-2) % Lymph # (Auto) (1.2-4.9) X10*3/uL [place] # (Auto) (0.1-1.2) X10*3/uL Eos # (Auto) (0.0-0.4) X10*3/uL Baso # (Auto) (0.0-0.2) X10*3/uL Abs Immat Gran (auto) (0.00-0.03) X10*3/uL Absolute Neuts (auto) (2.0-8.3) x10*3/uL Absolute Nucleated RBC (0.0-0.012) X10*3/uL Nucleated RBC % (auto) (0.0-0.2) /100WBC Sodium (135-145) mmol/L Potassium (3.3-5.1) mmol/L Chloride (96-108) mmol/L Carbon Dioxide (22-29) mmol/L Anion Gap (12-20) BUN (9-16) mg/dL Creatinine (0.5-1.4) mg/dL Estim Creat Clear Calc Estimated GFR Random Glucose (60-115) mg/dL Calcium (8.4-10.2) mg/dL Magnesium (1.6-2.6) mg/dL Total Bilirubin (0.0-1.0) mg/dL AST (5-31) U/L ALT (0-31) U/L Alkaline Phosphatase (39-117) U/L Total Protein (6.5-8.0) g/dL Albumin (3.5-5.0) g/dL Beta HCG, Quant 3 mIU/mL Urine Color Yellow Urine Appearance Clear Urine pH 7.5 (5.0-9.0) Ur Specific [place] >= 1.030 H (1.005-1.025) Urine Protein Negative (Neg-Trace) mg/dL Urine Glucose (UA) Negative (Negative) mg/dL Urine Ketones Negative (Negative) mg/dL Urine Blood Negative (Negative) Urine Nitrite Negative (Negative) Ur Leukocyte Esterase Negative (Negative) Urine Opiates Screen POSITIVE H (Not Detect) Urine Fentanyl Screen POSITIVE H (Not Detect) Ur Barbiturates Screen Not Detected (Not Detect) Ur Phencyclidine Scrn Not Detected (Not Detect) Ur Amphetamines Screen Not Detected (Not Detect) U Benzodiazepines Scrn Not Detected (Not Detect) Urine Cocaine Screen POSITIVE H (Not Detect) U Marijuana (THC) Screen Not Detected (Not Detect) Ethyl Alcohol mg/dL COVID-19 ([facility]ISE) (Negative) COVID-19 Clin Com <Melvin Ahn MD - Last Filed: 12/11/21 07:08> Critical Care Time Critical Care Time Critical Care Time: No <JAZMÍN Enciso - Last Filed: 12/11/21 01:51> Discharge Plan Discharge Clinical Impression: Polysubstance abuse, Fall, Altered mental status <JAZMÍN Enciso Last Filed: 12/11/21 01:51> Patient Disposition: Home, Self-Care <JAZMÍN Enciso Last Filed: 12/11/21 01:51> Additional Instructions: The CT scan of your chest, abdomen pelvis did not reveal any broken bones or internal injuries which is reassuring. The x-ray of your shoulder and knee did not reveal any broken bones/fractures. Your blood work did reveal anemia but this is not new for you. Your urine tox screen was positive for opiates, fentanyl, and cocaine. Your are being discharged home with intranasal Narcan. If you are going to continue to use heroin, you should make sure that there is a sober person with you that is not using drugs and that this person can administer intranasal Narcan in the event that you stop breathing. Follow-up with your doctor in 2 days. Please return to the emergency department if your symptoms get worse or if you develop any symptoms that are concerning to you. <JAZMÍN Enciso - Last Filed: 12/11/21 01:51> Prescriptions: No Action permethrin [Elimite] 5 % cream 1 appl topical Q14D Qty: 60 1RF Rx Instructions: apply second treatment 14 days after first treatment if live lice remain naproxen [Naprosyn] 500 mg tablet 500 mg PO BID Qty: 20 0RF <JAZMÍN Enciso - Last Filed: 12/11/21 01:51>
[2021-12-10 22:54] VITALS: BP 154/78; PULSE 66; PULSE 88; RESP 15; TEMP 37.1; O2SAT 100; O2SAT 99; BMI 27.3
--- NOTE | 2021-12-10 23:44 | PC.NURSE ---
assumed care of pt
--- NOTE | 2021-12-10 23:46 | PC.NURSE ---
Pt is kicking her legs around and going from crying to laughing. Provided verbal reassurance and that seemed to calm her down at the moment.
[2021-12-11 01:25] VITALS: BP 106/49; PULSE 61; RESP 15; O2SAT 99
[2021-12-11 01:26] LABS: COVID-19 Test Negative (Negative)
[2021-12-11 01:27] LABS: MANUAL DIFF FLAG NO
[2021-12-11 01:28] LABS: Basophils Percent Auto 0.4 % (0-2); Eosinophils Absolute Auto 0.1 X10*3/uL (0.0-0.4); Eosinophils Percent Auto 1.1 % (0-4); Hematocrit 29.9 % (37.0-47.0); Hemoglobin 9.9 g/dl (12.0-16.0); Imm Gran Abs Auto 0.01 X10*3/uL (0.00-0.03); Imm Gran Pct Auto 0.2 % (0.0-0.4); Lymphocytes Absolute Auto 2.1 X10*3/uL (1.2-4.9); Lymphocytes Percent Auto 44.2 % (20-40); Mean Corpuscular HGB Conc 33.1 g/dl (31.0-35.0); Mean Corpuscular Hemoglobin 32.8 pg (27.0-33.0); Mean Platelet Volume 9.7 fL (9.4-12.3); Monocytes Absolute Auto 0.3 X10*3/uL (0.1-1.2); Monocytes Percent Auto 7.1 % (2-11); Neutrophils Absolute Auto 2.2 x10*3/uL (2.0-8.3); Platelet Count 174 X10*3/uL (160-400); Red Blood Count 3.02 X10*6/uL (4.20-5.50); Red Cell Distribution Width 12.9 % (11.0-16.0); White Blood Count 4.6 X10*3/uL (4.8-10.8)
[2021-12-11 01:48] LABS: Alanine Aminotransferase 11 U/L (0-31); Albumin Level 3.4 g/dL (3.5-5.0); Alkaline Phosphatase 74 U/L (39-117); Anion Gap 11 (12-20); Aspartate Amino Transferase 23 U/L (5-31); Bilirubin Total 0.4 mg/dL (0.0-1.0); Blood Urea Nitrogen 11 mg/dL (9-16); Calcium 8.2 mg/dL (8.4-10.2); Carbon Dioxide 29 mmol/L (22-29); Chloride 105 mmol/L (96-108); Creatinine Clr Calc Pharmacy 59.3; Estimated Glomerular Filt Rate > 60; Ethanol < 10 mg/dL; Glucose Random 82 mg/dL (60-115); Potassium 3.6 mmol/L (3.3-5.1); Sodium 141 mmol/L (135-145); Total Protein 5.9 g/dL (6.5-8.0)
[2021-12-11 02:13] LABS: HCG Quantitative 3 mIU/mL
[2021-12-11] MEDS: iohexoL 350 MG/ML 100 ML INFUS..BTL 85 ML IV (02:22)
[2021-12-11 03:54] VITALS: BP 120/72; PULSE 74; RESP 16; TEMP 36.8; O2SAT 98
--- NOTE | 2021-12-11 04:50 | PC.NURSE ---
Pt stated that she had been experiencing a headache since yesterday. Atskatie spoint the day before the pain subsided. Today the pain began once. Pt states she took 4 tylenol to reduce the pain. Pt states the pain has not subsided.
[2021-12-11 04:59] LABS: Appearance Urine Clear; Color Urine Yellow; Glucose Urine UA Negative (Negative); Leukocyte Esterase Urine Negative (Negative); Nitrite Urine Negative (Negative); PH 7.5 (5.0-9.0); Specific Gravity - Urine >= 1.030 (1.005-1.025); Urine Blood Negative (Negative); Urine Ketones Negative (Negative); Urine Protein Negative (Neg-Trace)
--- NOTE | 2021-12-11 05:00 | PC.NURSE ---
pt removed IV without warning and refused a bandaid, she did allow me to continue applying pressure until the bleeding stopped
[2021-12-11 05:15] LABS: Amphetamine Screen Urine Not Detected (Not Detect); Barbiturates, Urine Not Detected (Not Detect); Benzodiazepines Screen Urine Not Detected (Not Detect); Cannabinoid Screen Urine Not Detected (Not Detect); Cocaine Screen Urine POSITIVE (Not Detect); Fentanyl, urine POSITIVE (Not Detect); Opiate Screen Urine POSITIVE (Not Detect); Phencyclidine Screen Urine Not Detected (Not Detect)
[2021-12-11] MEDS: Naloxone HCl Nasal TAKE HOME 4 MG SPRAY NOSTRILALT (07:26)
== END 2021-12-11 08:09 | disposition home or self-care (01) ==
PROVIDERS: Physician Assistant; Emergency Provider Emergency Medicine Emergency Medical Services
DX: Z04.3 Encounter for examination and observation following other accident (principal); F19.10 Other psychoactive substance abuse, uncomplicated; R51.9 Headache, unspecified; F17.200 Nicotine dependence, unspecified, uncomplicated; M25.511 Pain in right shoulder; M25.562 Pain in left knee; Z20.822 Contact with and (suspected) exposure to COVID-19; Z79.899 Other long term (current) drug therapy
CPT/HCPCS: 36415; 70450; 71045; 71260; 72125; 73030; 73564; 74177; 80053; 80307; 81003; 82077; 83735; 84702; 85025; 87635; 93005; 99284; Q9967

== ENCOUNTER 2022-03-05 17:42 | Emergency (ER) | payer OTHER, SELFPAY ==
--- NOTE | ~2022-03-05 | XR_ITS ---
EXAMINATION: XR KNEE, RIGHT CLINICAL INFORMATION: Fall, pain COMPARISON: None TECHNIQUE: Four views of the right knee. FINDINGS: No fracture. No dislocation. Joint spaces maintained. There may be a small suprapatellar joint effusion. Minimal enthesopathy at the distal quadriceps tendon attachment to the superior patella. XR/XR knee RT 2V IMPRESSION: Possible small suprapatellar joint effusion. No fracture seen.
[2022-03-05 18:16] VITALS: BP 175/95; PULSE 69; RESP 18; TEMP 36.7; O2SAT 98; BMI 24.5
--- NOTE | 2022-03-05 18:19 | ED.GENADULT ---
HPI - General Adult General Chief complaint: General Medical Stated complaint: Congested/R Knee pain Time Seen by Provider: 03/05/22 21:36 Related Data Previous Rx's Medication Instructions Recorded permethrin 5 % topical cream 1 appl topical Q14D 2 doses #60 03/18/20 (Elimite) grams naproxen 500 mg tablet (Naprosyn) 500 mg PO BID #20 tabs 08/05/20 cephalexin 500 mg capsule 500 mg PO Q12H 7 days #14 caps 03/05/22 doxycycline monohydrate 100 mg 100 mg PO BID 10 days #20 caps 03/05/22 capsule ibuprofen 600 mg tablet 600 mg PO Q6H PRN pain #60 tabs 03/05/22 Allergies Allergy/AdvReac Type Severity Reaction Status Date / Time metoclopramide [Reglan] Allergy Unknown Verified 07/08/15 00:00 From REGLAN Allergy Unknown UNKNOWN Uncoded 12/25/19 15:05 PMFSH Past Medical History Medical History Asthma Substance abuse Social History Social History Alcohol intake: never Patient Tobacco Use Status: Current everyday Tobacco user Smoked in Last 30 Days: Yes Use of substances other than those prescribed or required for medical reasons: No Substance Use Type: Crack/Cocaine and Heroin Advance Directives: No Advance Directives Information Provided: No Physical Exam ED Vital Signs: Vital Signs - 24 hr 03/05/22 18:16 03/05/22 21:40 Temperature 98.1 F 98.1 F Pulse Rate 69 61 Respiratory Rate 18 18 Blood Pressure 175/95 H 152/43 H Pulse Oximetry 98 100 Oxygen Delivery Method Room Air Room Air BMI result Body Mass Index 24.5 Course Course Course Narrative: RME performed by Jaye Hutchinson PA-C. Patient is a 66 year old female presenting to the department complaining of right knee pain and nose pain. Patient's nose is erythematous and appears to have a soft tissue infection in the tip. CBC, CMP, ESR, CRP, and right knee XR ordered. Patient to be placed back in the waiting room pending results and bed availability. Patient seen and discharged by SUDHA Ely who created and completed a separate note. Medications Administered Discontinued Medications Generic Name Dose Route Start Last Admin Trade Name Freq PRN Reason Stop Dose Admin Cephalexin HCl 500 mg 03/05/22 23:07 03/05/22 23:51 Cephalexin 500 Mg Capsule PO 03/05/22 23:08 500 mg ONCE ONE Administration Doxycycline Monohydrate 100 mg 03/05/22 23:10 03/05/22 23:51 Doxycycline Monohydrate 100 Mg Capsule PO 03/05/22 23:11 100 mg ONCE ONE Administration Ibuprofen 600 mg 03/05/22 21:58 03/05/22 22:41 Ibuprofen 600 Mg Tablet PO 03/05/22 21:59 600 mg ONCE ONE Administration Medical Decision Making Lab Data Result diagrams: 03/05/22 18:31 03/05/22 18:31 Labs: Lab Results 03/05/22 03/05/22 03/05/22 Range/Units 18:31 18:31 18:31 WBC 6.4 (4.8-10.8) X10*3/uL RBC 3.49 L (4.20-5.50) X10*6/uL Hgb 11.0 L (12.0-16.0) g/dl Hct 35.0 L (37.0-47.0) % MCV 100.3 H (80.0-98.0) fL MCH 31.5 (27.0-33.0) pg MCHC 31.4 (31.0-35.0) g/dl RDW 12.6 (11.0-16.0) % Plt Count 221 D (160-400) X10*3/uL MPV 9.6 (9.4-12.3) fL Immature Gran % (Auto) 0.3 (0.0-0.4) % Neut % (Auto) 66.4 (45-73) % Lymph % (Auto) 26.0 (20-40) % [place] % (Auto) 6.3 (2-11) % Eos % (Auto) 0.8 (0-4) % Baso % (Auto) 0.2 (0-2) % Lymph # (Auto) 1.7 (1.2-4.9) X10*3/uL [place] # (Auto) 0.4 (0.1-1.2) X10*3/uL Eos # (Auto) 0.1 (0.0-0.4) X10*3/uL Baso # (Auto) 0.0 (0.0-0.2) X10*3/uL Abs Immat Gran (auto) 0.02 (0.00-0.03) X10*3/uL Absolute Neuts (auto) 4.2 (2.0-8.3) x10*3/uL Absolute Nucleated RBC 0.000 (0.0-0.012) X10*3/uL Nucleated RBC % (auto) 0.0 (0.0-0.2) /100WBC ESR 70 H (0-20) MM/HR Sodium 143 (135-145) mmol/L Potassium 4.9 D (3.3-5.1) mmol/L Chloride 106 (96-108) mmol/L Carbon Dioxide 27 (22-29) mmol/L Anion Gap 15 (12-20) BUN 17 H (9-16) mg/dL Creatinine 0.81 (0.5-1.4) mg/dL Estim Creat Clear Calc 57.1 Estimated GFR > 60 Random Glucose 99 (60-115) mg/dL Calcium 9.4 D (8.4-10.2) mg/dL Total Bilirubin 0.3 (0.0-1.0) mg/dL AST 20 (5-31) U/L ALT 12 (0-31) U/L Alkaline Phosphatase 84 (39-117) U/L C-Reactive Protein 7.35 H (< or = 0.50) mg/dL Total Protein 7.2 (6.5-8.0) g/dL Albumin 3.8 (3.5-5.0) g/dL Influenza Type A (PCR) (Negative) Influenza Type B (PCR) (Negative) RSV RNA Qual (PCR) (Negative) SARS-CoV-2 RNA (RT-PCR) (Negative) 03/05/22 Range/Units 21:43 WBC (4.8-10.8) X10*3/uL RBC (4.20-5.50) X10*6/uL Hgb (12.0-16.0) g/dl Hct (37.0-47.0) % MCV (80.0-98.0) fL MCH (27.0-33.0) pg MCHC (31.0-35.0) g/dl RDW (11.0-16.0) % Plt Count (160-400) X10*3/uL MPV (9.4-12.3) fL Immature Gran % (Auto) (0.0-0.4) % Neut % (Auto) (45-73) % Lymph % (Auto) (20-40) % [place] % (Auto) (2-11) % Eos % (Auto) (0-4) % Baso % (Auto) (0-2) % Lymph # (Auto) (1.2-4.9) X10*3/uL [place] # (Auto) (0.1-1.2) X10*3/uL Eos # (Auto) (0.0-0.4) X10*3/uL Baso # (Auto) (0.0-0.2) X10*3/uL Abs Immat Gran (auto) (0.00-0.03) X10*3/uL Absolute Neuts (auto) (2.0-8.3) x10*3/uL Absolute Nucleated RBC (0.0-0.012) X10*3/uL Nucleated RBC % (auto) (0.0-0.2) /100WBC ESR (0-20) MM/HR Sodium (135-145) mmol/L Potassium (3.3-5.1) mmol/L Chloride (96-108) mmol/L Carbon Dioxide (22-29) mmol/L Anion Gap (12-20) BUN (9-16) mg/dL Creatinine (0.5-1.4) mg/dL Estim Creat Clear Calc Estimated GFR Random Glucose (60-115) mg/dL Calcium (8.4-10.2) mg/dL Total Bilirubin (0.0-1.0) mg/dL AST (5-31) U/L ALT (0-31) U/L Alkaline Phosphatase (39-117) U/L C-Reactive Protein (< or = 0.50) mg/dL Total Protein (6.5-8.0) g/dL Albumin (3.5-5.0) g/dL Influenza Type A (PCR) NEGATIVE (Negative) Influenza Type B (PCR) NEGATIVE (Negative) RSV RNA Qual (PCR) NEGATIVE (Negative) SARS-CoV-2 RNA (RT-PCR) NEGATIVE (Negative) Discharge Plan Discharge Clinical Impression: Cellulitis, Effusion of knee joint right Patient Disposition: Home, Self-Care Instructions: Cellulitis (ED), Swollen Joint (ED) Additional Instructions: You were evaluated for nasal drainage from cellulitis. Please take Keflex 500 mg twice a day for the next 7 days. Take doxycycline twice a day for the next 10 days. For your right knee pain, x-rays indicate a small knee effusion. Use cane as needed for comfort. Keep Natan wrap on for comfort to help reduce pain and swelling. Follow-up with Dr. Molina for evaluation of right knee effusion. Call and request an appointment. Take Tylenol 50 every 6 hours as needed and Motrin 600 mg every 6 hours as needed for pain management. Write down what time he take these medications to prevent accidental overdose. Thank you for choosing this emergency department for evaluation. Please follow-up with primary care physician as needed. Return to the emergency department for any new, concerning, or worsening symptoms. Prescriptions: New doxycycline monohydrate 100 mg capsule 100 mg PO BID 10 Days Qty: 20 0RF cephalexin 500 mg capsule 500 mg PO Q12H 7 Days Qty: 14 0RF ibuprofen 600 mg tablet 600 mg PO Q6H PRN (Reason: pain) Qty: 60 0RF No Action permethrin [Elimite] 5 % cream 1 appl topical Q14D Qty: 60 1RF Rx Instructions: apply second treatment 14 days after first treatment if live lice remain naproxen [Naprosyn] 500 mg tablet 500 mg PO BID Qty: 20 0RF Referrals: Wayne Molina MD [Physician] - 2 weeks (Right knee effusion) Interventions: ED Discharge Assessment Last Done: 03/06/22 00:05 Discharge Date/Time: 03/06/22 00:08
[2022-03-05 18:35] LABS: MANUAL DIFF FLAG NO
[2022-03-05 18:37] LABS: Basophils Percent Auto 0.2 % (0-2); Eosinophils Absolute Auto 0.1 X10*3/uL (0.0-0.4); Eosinophils Percent Auto 0.8 % (0-4); Imm Gran Abs Auto 0.02 X10*3/uL (0.00-0.03); Imm Gran Pct Auto 0.3 % (0.0-0.4); Lymphocytes Absolute Auto 1.7 X10*3/uL (1.2-4.9); Mean Corpuscular HGB Conc 31.4 g/dl (31.0-35.0); Mean Corpuscular Hemoglobin 31.5 pg (27.0-33.0); Mean Corpuscular Volume 100.3 fL (80.0-98.0); Mean Platelet Volume 9.6 fL (9.4-12.3); Monocytes Absolute Auto 0.4 X10*3/uL (0.1-1.2); Monocytes Percent Auto 6.3 % (2-11); Neutrophils Absolute Auto 4.2 x10*3/uL (2.0-8.3); Neutrophils Percent Auto 66.4 % (45-73); Platelet Count 221 X10*3/uL (160-400); Red Blood Count 3.49 X10*6/uL (4.20-5.50); Red Cell Distribution Width 12.6 % (11.0-16.0); White Blood Count 6.4 X10*3/uL (4.8-10.8)
[2022-03-05 18:54] LABS: Alanine Aminotransferase 12 U/L (0-31); Albumin Level 3.8 g/dL (3.5-5.0); Alkaline Phosphatase 84 U/L (39-117); Anion Gap 15 (12-20); Aspartate Amino Transferase 20 U/L (5-31); Bilirubin Total 0.3 mg/dL (0.0-1.0); Blood Urea Nitrogen 17 mg/dL (9-16); C Reactive Protein 7.35 mg/dL (< or = 0.50); Calcium 9.4 mg/dL (8.4-10.2); Carbon Dioxide 27 mmol/L (22-29); Chloride 106 mmol/L (96-108); Creatinine Clr Calc Pharmacy 57.1; Estimated Glomerular Filt Rate > 60; Glucose Random 99 mg/dL (60-115); Potassium 4.9 mmol/L (3.3-5.1); Sodium 143 mmol/L (135-145); Total Protein 7.2 g/dL (6.5-8.0)
[2022-03-05 19:11] LABS: Erythrocyte Sedimentation Rate 70 MM/HR (0-20)
--- NOTE | 2022-03-05 21:36 | ED_ITS ---
HPI - General Adult General Chief complaint: General Medical Stated complaint: Congested/R Knee pain Time Seen by Provider: 03/05/22 21:36 Source: patient Mode of arrival: ambulatory Limitations: no limitations History of Present Illness HPI narrative: 66-year-old female presents with an infection on the end of her nose, states that there is a draining site inside her nostril. She also reports right knee pain, states that she fell about 2 weeks ago, and has been unable to walk on it properly since. She did not report any fevers or chills. Onset (ago): week(s) (2) Location: face, right and lower extremity Radiation: non-radiation Severity: moderate Severity scale (1-10): 7 Quality: aching Pain Consistency: constant Relieving factors: none Exacerbating factors: movement Associated symptoms: denies other symptoms Treatments prior to arrival: none Related Data Previous Rx's Medication Instructions Recorded permethrin 5 % topical cream 1 appl topical Q14D 2 doses #60 03/18/20 (Elimite) grams naproxen 500 mg tablet (Naprosyn) 500 mg PO BID #20 tabs 08/05/20 cephalexin 500 mg capsule 500 mg PO Q12H 7 days #14 caps 03/05/22 doxycycline monohydrate 100 mg 100 mg PO BID 10 days #20 caps 03/05/22 capsule ibuprofen 600 mg tablet 600 mg PO Q6H PRN pain #60 tabs 03/05/22 Allergies Allergy/AdvReac Type Severity Reaction Status Date / Time metoclopramide [Reglan] Allergy Unknown Verified 07/08/15 00:00 From REGLAN Allergy Unknown UNKNOWN Uncoded 12/25/19 15:05 Review of Systems 2 Review of Systems: Constitutional: No Fever, No Chills ENT/Mouth: Positive nasal pain and drainage, No Ear Pain, No Hoarseness, No sore throat Eyes: No Eye Pain, No Swelling, No Redness, No Foreign Body Cardiovascular: No Chest Pain, No SOB Respiratory: No Cough, No Dyspnea Gastrointestinal: No Nausea, No Vomiting, No Diarrhea, No abdominal Pain Genitourinary: No Dysuria, No Hematuria Musculoskeletal: positive right knee pain, No Myalgias, No Joint Swelling Skin: No Skin lacerations, No rash Neuro: No Weakness, No Numbness, No Paresthesias, No Loss of Consciousness, No Dizziness, No Headache Psych: No Anxiety/Panic, No Depression Heme/Lymph: no easy bruising, no Lymphadenopathy Endocrine: No Polyuria, No Polydipsia Yes all other systems are reviewed and are negative [facility] Past Medical History Attestation statement: The following information was validated with the patient. Source: old records reviewed Medical History Asthma Substance abuse Social History Social History Alcohol intake: never Patient Tobacco Use Status: Current everyday Tobacco user Smoked in Last 30 Days: Yes Use of substances other than those prescribed or required for medical reasons: No Substance Use Type: Crack/Cocaine and Heroin Advance Directives: No Advance Directives Information Provided: No Physical Exam ED Vital Signs: Vital Signs - 24 hr 03/05/22 18:16 03/05/22 21:40 Temperature 98.1 F 98.1 F Pulse Rate 69 61 Respiratory Rate 18 18 Blood Pressure 175/95 H 152/43 H Pulse Oximetry 98 100 Oxygen Delivery Method Room Air Room Air BMI result Body Mass Index 24.5 Appearance: Alert. Oriented X3. No acute distress. Eyes: Pupils equal, round and reactive to light. ENT: Pharynx normal. Cellulitis to the tip of her nose. Neck: Normal inspection. Neck supple. CVS: Normal heart rate and rhythm. Pulses normal. Respiratory: No respiratory distress. Breath sounds normal. Abdomen: Soft and nontender. Skin: Skin warm and dry. Normal skin color. Normal skin turgor. Extremities: No lower extremity edema. Ambulatory with a limp. Full range of motion, brisk capillary refill and equal pulses. Neuro: No motor deficit. No sensory deficit. Cranial nerves 2-12 intact. Course Course Course Narrative: 66-year-old female presents with cellulitis to the tip of her nose, and right knee pain after fall approximately 2 weeks ago. X-rays completed while she was in the emergency department waiting room which indicates a small knee effusion. I do not palpate the effusion on physical exam. Patient does have full range of motion, brisk capillary refill and is neurovascularly intact. Her 2nd complaint is of an infection on the tip of her nose. She states that there is some purulent drainage from the site. The tip of her nose is erythematous with cellulitis, and there is some honey-crusted drainage on the inside of her right near. She does not have a septal hematoma, and both ears are patent. She is afebrile, appears nontoxic, has vital signs that are hemodynamically stable. Will treat with Natan wrap, give patient a cane, and give doxycycline and Keflex for cellulitis. Patient states that she is concerned about an infection in her brain, I did reassure her that she does not have an infection in her brain. Patient is neurovascularly intact, alert oriented x4, and has no nuchal rigidity. Cranial nerves 2-12 intact Patient verbalized understanding of and agrees to plan of care discharge home. She does understand that she must complete antibiotics for her nasal cellulitis, and follow-up with Dr. Molina if pain in her right knee continues. Medications Administered Discontinued Medications Generic Name Dose Route Start Last Admin Trade Name Freq PRN Reason Stop Dose Admin Cephalexin HCl 500 mg 03/05/22 23:07 03/05/22 23:51 Cephalexin 500 Mg Capsule PO 03/05/22 23:08 500 mg ONCE ONE Administration Doxycycline Monohydrate 100 mg 03/05/22 23:10 03/05/22 23:51 Doxycycline Monohydrate 100 Mg Capsule PO 03/05/22 23:11 100 mg ONCE ONE Administration Ibuprofen 600 mg 03/05/22 21:58 03/05/22 22:41 Ibuprofen 600 Mg Tablet PO 03/05/22 21:59 600 mg ONCE ONE Administration Medical Decision Making Differential Diagnosis Differential Diagnosis: Cellulitis, influenza, COVID, effusion, dislocation, tendon injury, musculo Medical Records Medical records reviewed: Yes I reviewed the patient's medical records. Lab Data Lab results reviewed: Yes I reviewed the patient's lab results. Result diagrams: 03/05/22 18:31 03/05/22 18:31 Labs: Lab Results 03/05/22 03/05/22 03/05/22 Range/Units 18:31 18:31 18:31 WBC 6.4 (4.8-10.8) X10*3/uL RBC 3.49 L (4.20-5.50) X10*6/uL Hgb 11.0 L (12.0-16.0) g/dl Hct 35.0 L (37.0-47.0) % MCV 100.3 H (80.0-98.0) fL MCH 31.5 (27.0-33.0) pg MCHC 31.4 (31.0-35.0) g/dl RDW 12.6 (11.0-16.0) % Plt Count 221 D (160-400) X10*3/uL MPV 9.6 (9.4-12.3) fL Immature Gran % (Auto) 0.3 (0.0-0.4) % Neut % (Auto) 66.4 (45-73) % Lymph % (Auto) 26.0 (20-40) % [place] % (Auto) 6.3 (2-11) % Eos % (Auto) 0.8 (0-4) % Baso % (Auto) 0.2 (0-2) % Lymph # (Auto) 1.7 (1.2-4.9) X10*3/uL [place] # (Auto) 0.4 (0.1-1.2) X10*3/uL Eos # (Auto) 0.1 (0.0-0.4) X10*3/uL Baso # (Auto) 0.0 (0.0-0.2) X10*3/uL Abs Immat Gran (auto) 0.02 (0.00-0.03) X10*3/uL Absolute Neuts (auto) 4.2 (2.0-8.3) x10*3/uL Absolute Nucleated RBC 0.000 (0.0-0.012) X10*3/uL Nucleated RBC % (auto) 0.0 (0.0-0.2) /100WBC ESR 70 H (0-20) MM/HR Sodium 143 (135-145) mmol/L Potassium 4.9 D (3.3-5.1) mmol/L Chloride 106 (96-108) mmol/L Carbon Dioxide 27 (22-29) mmol/L Anion Gap 15 (12-20) BUN 17 H (9-16) mg/dL Creatinine 0.81 (0.5-1.4) mg/dL Estim Creat Clear Calc 57.1 Estimated GFR > 60 Random Glucose 99 (60-115) mg/dL Calcium 9.4 D (8.4-10.2) mg/dL Total Bilirubin 0.3 (0.0-1.0) mg/dL AST 20 (5-31) U/L ALT 12 (0-31) U/L Alkaline Phosphatase 84 (39-117) U/L C-Reactive Protein 7.35 H (< or = 0.50) mg/dL Total Protein 7.2 (6.5-8.0) g/dL Albumin 3.8 (3.5-5.0) g/dL Influenza Type A (PCR) (Negative) Influenza Type B (PCR) (Negative) RSV RNA Qual (PCR) (Negative) SARS-CoV-2 RNA (RT-PCR) (Negative) 03/05/22 Range/Units 21:43 WBC (4.8-10.8) X10*3/uL RBC (4.20-5.50) X10*6/uL Hgb (12.0-16.0) g/dl Hct (37.0-47.0) % MCV (80.0-98.0) fL MCH (27.0-33.0) pg MCHC (31.0-35.0) g/dl RDW (11.0-16.0) % Plt Count (160-400) X10*3/uL MPV (9.4-12.3) fL Immature Gran % (Auto) (0.0-0.4) % Neut % (Auto) (45-73) % Lymph % (Auto) (20-40) % [place] % (Auto) (2-11) % Eos % (Auto) (0-4) % Baso % (Auto) (0-2) % Lymph # (Auto) (1.2-4.9) X10*3/uL [place] # (Auto) (0.1-1.2) X10*3/uL Eos # (Auto) (0.0-0.4) X10*3/uL Baso # (Auto) (0.0-0.2) X10*3/uL Abs Immat Gran (auto) (0.00-0.03) X10*3/uL Absolute Neuts (auto) (2.0-8.3) x10*3/uL Absolute Nucleated RBC (0.0-0.012) X10*3/uL Nucleated RBC % (auto) (0.0-0.2) /100WBC ESR (0-20) MM/HR Sodium (135-145) mmol/L Potassium (3.3-5.1) mmol/L Chloride (96-108) mmol/L Carbon Dioxide (22-29) mmol/L Anion Gap (12-20) BUN (9-16) mg/dL Creatinine (0.5-1.4) mg/dL Estim Creat Clear Calc Estimated GFR Random Glucose (60-115) mg/dL Calcium (8.4-10.2) mg/dL Total Bilirubin (0.0-1.0) mg/dL AST (5-31) U/L ALT (0-31) U/L Alkaline Phosphatase (39-117) U/L C-Reactive Protein (< or = 0.50) mg/dL Total Protein (6.5-8.0) g/dL Albumin (3.5-5.0) g/dL Influenza Type A (PCR) NEGATIVE (Negative) Influenza Type B (PCR) NEGATIVE (Negative) RSV RNA Qual (PCR) NEGATIVE (Negative) SARS-CoV-2 RNA (RT-PCR) NEGATIVE (Negative) Imaging Data Knee x-ray: Attestation: I personally reviewed and interpreted this imaging study as follows: Radiologist's impression: EXAMINATION: XR KNEE, RIGHT? CLINICAL INFORMATION: Fall, pain? COMPARISON: None? TECHNIQUE: Four views of the right knee. FINDINGS: No fracture. No dislocation. Joint spaces maintained. There may be a small suprapatellar joint effusion. Minimal enthesopathy at the distal quadriceps tendon attachment to the superior patella.? XR/XR knee RT 2V IMPRESSION: Discharge Plan Discharge Clinical Impression: Cellulitis, Effusion of knee joint right Patient Disposition: Home, Self-Care Instructions: Cellulitis (ED), Swollen Joint (ED) Additional Instructions: You were evaluated for nasal drainage from cellulitis. Please take Keflex 500 mg twice a day for the next 7 days. Take doxycycline twice a day for the next 10 days. For your right knee pain, x-rays indicate a small knee effusion. Use cane as needed for comfort. Keep Natan wrap on for comfort to help reduce pain and swelling. Follow-up with Dr. Molina for evaluation of right knee effusion. Call and request an appointment. Take Tylenol 50 every 6 hours as needed and Motrin 600 mg every 6 hours as needed for pain management. Write down what time he take these medications to prevent accidental overdose. Thank you for choosing this emergency department for evaluation. Please follow-up with primary care physician as needed. Return to the emergency department for any new, concerning, or worsening symptoms. Prescriptions: New doxycycline monohydrate 100 mg capsule 100 mg PO BID 10 Days Qty: 20 0RF cephalexin 500 mg capsule 500 mg PO Q12H 7 Days Qty: 14 0RF ibuprofen 600 mg tablet 600 mg PO Q6H PRN (Reason: pain) Qty: 60 0RF No Action permethrin [Elimite] 5 % cream 1 appl topical Q14D Qty: 60 1RF Rx Instructions: apply second treatment 14 days after first treatment if live lice remain naproxen [Naprosyn] 500 mg tablet 500 mg PO BID Qty: 20 0RF Referrals: Wayne Molina MD [Physician] - 2 weeks (Right knee effusion) Interventions: ED Discharge Assessment Last Done: 03/06/22 00:05 Discharge Date/Time: 03/06/22 00:08
[2022-03-05 21:40] VITALS: BP 152/43; PULSE 61; RESP 18; TEMP 36.7; O2SAT 100
[2022-03-05 22:28] LABS: Influenza A PCR NEGATIVE (Negative); Influenza B PCR NEGATIVE (Negative); Resp Syncy Virus RNA Qual PCR NEGATIVE (Negative); SARS COV2 PCR INHOUSE NEGATIVE (Negative)
[2022-03-05] MEDS: Ibuprofen 600 MG TABLET PO (22:41)
[2022-03-05] MEDS: cephALEXin 500 MG CAPSULE PO (23:51)
[2022-03-05] MEDS: Doxycycline Monohydrate 100 MG CAPSULE PO (23:51)
--- NOTE | 2022-03-06 00:01 | PC.NURSE ---
pt medicated according to teena. pt provided with crackers and homero manpreet as requested
--- NOTE | 2022-03-06 00:02 | PC.NURSE ---
medical records custodian applied elvis wrap to right knee. this rn assessed wrapped right knee. right extremity PWD. pedal pulse present upon assess. pt able to move extremity and digits when this rn asked. pt reports no discomfort upon elvis wrap
== END 2022-03-06 00:08 | disposition home or self-care (01) ==
PROVIDERS: Nurse Practitioner Family; Physician Assistant Medical; Emergency Provider Internal Medicine
DX: L03.115 Cellulitis of right lower limb (principal); M25.461 Effusion, right knee; M25.561 Pain in right knee; F17.210 Nicotine dependence, cigarettes, uncomplicated; Z20.822 Contact with and (suspected) exposure to COVID-19; Z79.899 Other long term (current) drug therapy; Z71.6 Tobacco abuse counseling
CPT/HCPCS: 0241U; 36415; 73560; 80053; 85025; 85652; 86140; 99284

== ENCOUNTER 2022-12-14 15:39 | Emergency (ER) | payer OTHER, SELFPAY ==
[2022-12-14 15:46] VITALS: PULSE 108; O2SAT 96
[2022-12-14 15:49] VITALS: BP 141/67; PULSE 90; RESP 16; TEMP 37.1; O2SAT 98; BMI 23.1
--- NOTE | 2022-12-14 15:58 | MHC.CARE ---
CARE Team received a [facility] who indicates that pt was seen for a crisis assessment by co response clinician, Siobhan. [facility] determined that pt is not in a psychiatric crisis, but is more likely under the influence of substances. This was corroborated by a family member interviewed at the scene. Pt [place] in the [place] [id number] [address] [facility] [address] [facility], run by [facility]. PD was contacted due to pt behaving unusually and having no pants on.
--- NOTE | 2022-12-14 16:17 | PC.NURSE ---
pt changed, belongings w/ security by staff. denies si. talking, airway intact, +CMS, no distress noted. pt situationally confused.
[2022-12-14 16:19] VITALS: BP 141/67; PULSE 87; RESP 14; TEMP 37.1; O2SAT 98
[2022-12-14 16:20] LABS: Glucose, Whole Blood 80 mg/dL (60-115)
--- NOTE | 2022-12-14 16:30 | PC.NURSE ---
md lee loyd pt and rn at bedside- pt airway intact,, +o2 sat on RA, +CMS. piano case and bench assembler Grace peters MD is working on her case. no orders at this time
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
--- NOTE | 2022-12-14 16:35 | MHC.EDTECH ---
pt belongings in [facility]. pt changed over with security
[2022-12-14 20:06] VITALS: BP 132/55; PULSE 71; RESP 12; O2SAT 96
--- NOTE | 2022-12-14 20:30 | PC.NURSE ---
This securities underwriter assumed care at 1900, Pt AO to self/year, pt laying in stretcher with spastic movements/eyerolling. pt able to answer yes/no questions, pt denies any pain. marianela
[2022-12-14 21:52] VITALS: PULSE 60; RESP 12; O2SAT 100
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
[2022-12-14 23:12] VITALS: BP 102/63; PULSE 72; RESP 16; TEMP 36.8; O2SAT 97
[2022-12-15 02:08] VITALS: BP 102/51; PULSE 61; RESP 16; TEMP 36.8; O2SAT 97
[2022-12-15 04:08] VITALS: BP 118/55; PULSE 56; RESP 16; TEMP 36.8; O2SAT 96
--- NOTE | 2022-12-15 04:55 | PC.NURSE ---
Pt ambulated independently to bathroom with steady gait. D/C instructions understood. Pt ambulated to [facility] to get belongings.
== END 2022-12-15 04:58 | disposition still patient (30) ==
PROVIDERS: Emergency Provider Emergency Medicine
DX: F11.10 Opioid abuse, uncomplicated (principal); F17.200 Nicotine dependence, unspecified, uncomplicated; Z79.899 Other long term (current) drug therapy; Z71.6 Tobacco abuse counseling
CPT/HCPCS: 82947; 99284

== ENCOUNTER 2023-06-11 21:47 | Emergency (ER) | payer OTHER, SELFPAY ==
--- NOTE | ~2023-06-11 | CT_ITS ---
EXAMINATION: CT CERVICAL SPINE WITHOUT CONTRAST CLINICAL INFORMATION: CT cervical spine 12/10/2021 COMPARISON: CT cervical spine 12/10/2021 TECHNIQUE: Noncontrast CT of the cervical spine was performed. Multiplanar reformations were generated and reviewed. This CT examination was performed using dose optimization techniques as appropriate, variously including the following: *Automated exposure control *Adjustment of mA and/or kV according to patient size (this includes techniques or standardized protocols for targeted exams where dose is matched to indication/reason for exam; i.e. extremities or head) *Use of iterative reconstruction technique DLP: 276 mGy-cm FINDINGS: Normal vertebral body heights. No evidence of acute fracture. Cervical straightening. Trace anterolisthesis of C3 on C4 on the basis of advanced facet arthropathy. No prevertebral edema. Moderate to advanced multilevel cervical spondylosis No abnormality of the visualized cervical soft tissues. The lung apices are clear. The visualized intracranial compartment is unremarkable. CT/CT cervical spine wo IV con IMPRESSION: No acute fracture or traumatic malalignment of the cervical spine
--- NOTE | ~2023-06-11 | CT_ITS ---
EXAMINATION: CT HEAD WITHOUT CONTRAST CLINICAL INFORMATION: Mental status change COMPARISON: 12/10/2021 TECHNIQUE: Contiguous axial imaging was performed from the skull base to vertex without intravenous administration of contrast. This CT examination was performed using dose optimization techniques as appropriate, variously including the following: *Automated exposure control *Adjustment of mA and/or kV according to patient size (this includes techniques or standardized protocols for targeted exams where dose is matched to indication/reason for exam; i.e. extremities or head) *Use of iterative reconstruction technique DLP: 666 mGy-cm FINDINGS: There is no evidence of acute intracranial hemorrhage or territorial infarction. No abnormal mass-effect or midline shift is seen. Melara to white matter differentiation is well preserved. No extra-axial fluid collections are identified. The ventricles are normal in size. There is no abnormal attenuation within the brain parenchyma. The osseous structures and soft tissues are normal. The mastoid air cells and visualized portions of the paranasal sinuses are well-aerated. CT/CT head/brain wo IV con IMPRESSION: No acute intracranial pathology.
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
[2023-06-11 22:35] VITALS: BP 148/87; BP 152/86; PULSE 75; PULSE 77; RESP 16; TEMP 36.6; O2SAT 99; BMI 22.3
[2023-06-11 22:36] VITALS: BP 122/59; PULSE 71; RESP 20; TEMP 36.7; O2SAT 100
[2023-06-11] MEDS: 0.9 % Sodium Chloride 1,000 ML 999 ML IV (22:45)
[2023-06-11 22:53] LABS: MANUAL DIFF FLAG NO
[2023-06-11 22:57] LABS: Appearance Urine Clear; Color Urine Yellow; Glucose Urine UA Negative (Negative); Leukocyte Esterase Urine Negative (Negative); Nitrite Urine Negative (Negative); PH 5.5 (5.0-9.0); UMIC TRIGGER UACC YES; Urine Blood Moderate (2+) (Negative); Urine Ketones Negative (Negative); Urine Protein Negative (Neg-Trace)
[2023-06-11 22:59] LABS: Basophils Percent Auto 0.3 % (0-2); Eosinophils Percent Auto 0.3 % (0-4); Hematocrit 33.7 % (37.0-47.0); Hemoglobin 10.9 g/dl (12.0-16.0); Imm Gran Abs Auto 0.02 X10*3/uL (0.00-0.03); Imm Gran Pct Auto 0.3 % (0.0-0.4); Lymphocytes Absolute Auto 1.8 X10*3/uL (1.2-4.9); Lymphocytes Percent Auto 29.1 % (20-40); Mean Corpuscular HGB Conc 32.3 g/dl (31.0-35.0); Mean Corpuscular Hemoglobin 31.2 pg (27.0-33.0); Mean Corpuscular Volume 96.6 fL (80.0-98.0); Mean Platelet Volume 9.2 fL (9.4-12.3); Monocytes Absolute Auto 0.5 X10*3/uL (0.1-1.2); Monocytes Percent Auto 8.2 % (2-11); Neutrophils Absolute Auto 3.8 x10*3/uL (2.0-8.3); Neutrophils Percent Auto 61.8 % (45-73); Platelet Count 207 X10*3/uL (160-400); Red Blood Count 3.49 X10*6/uL (4.20-5.50); Red Cell Distribution Width 13.1 % (11.0-16.0); White Blood Count 6.1 X10*3/uL (4.8-10.8)
[2023-06-11 23:06] LABS: Amphetamine Screen Urine Not Detected (Not Detect); Barbiturates, Urine Not Detected (Not Detect); Benzodiazepines Screen Urine Not Detected (Not Detect); Cannabinoid Screen Urine Not Detected (Not Detect); Cocaine Screen Urine POSITIVE (Not Detect); Fentanyl, urine POSITIVE (Not Detect); Opiate Screen Urine POSITIVE (Not Detect); Phencyclidine Screen Urine Not Detected (Not Detect)
[2023-06-11 23:07] LABS: Ethanol < 10 mg/dL
[2023-06-11 23:11] LABS: Alanine Aminotransferase 11 U/L (0-31); Albumin Level 3.9 g/dL (3.5-5.0); Alkaline Phosphatase 80 U/L (39-117); Anion Gap 11 (12-20); Aspartate Amino Transferase 27 U/L (5-31); Bacteria Urine None Seen (None Seen); Bilirubin Direct 0.2 mg/dL (0.0-0.5); Bilirubin Total 0.5 mg/dL (0.0-1.0); Blood Urea Nitrogen 17 mg/dL (9-16); Calcium 9.1 mg/dL (8.4-10.2); Carbon Dioxide 25 mmol/L (22-29); Chloride 105 mmol/L (96-108); Creatinine Clr Calc Pharmacy 57.5; Estimated Glomerular Filt Rate > 60; Glucose Random 67 mg/dL (60-115); Hyaline Casts Urine 0-2 /LPF (0-2); Lipase 9 U/L (8-78); Potassium 4.1 mmol/L (3.3-5.1); Sodium 137 mmol/L (135-145); Squamous Epithelial Cell Urine 0-2 /HPF (0-2); Total Protein 7.3 g/dL (6.5-8.0); WBC Urine 0-5 /HPF (0-5)
[2023-06-11 23:16] LABS: B Type Natriuretic Peptide 105 pg/mL (<100)
[2023-06-11 23:17] LABS: Troponin-I High Sensitivity 2.8 ng/L (<3.5-17.0)
[2023-06-11 23:36] LABS: Influenza A PCR NEGATIVE (Negative); Influenza B PCR NEGATIVE (Negative); Resp Syncy Virus RNA Qual PCR NEGATIVE (Negative); SARS COV2 PCR INHOUSE NEGATIVE (Negative)
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
[2023-06-12 00:53] VITALS: BP 146/61; PULSE 67; RESP 14; TEMP 36.4; O2SAT 96
[2023-06-12 06:17] VITALS: BP 127/62; PULSE 70; RESP 18; TEMP 36.6; O2SAT 97
[2023-06-12 07:37] VITALS: BP 143/69; PULSE 72; RESP 17; TEMP 36.4; O2SAT 100
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
[2023-06-12] MEDS: Naloxone HCl Nasal TAKE HOME 4 MG SPRAY 8 MG NOSTRILALT (10:21)
--- NOTE | 2023-06-12 10:22 | PC.NURSE ---
pt awake and walking around ED.
== END 2023-06-12 10:33 | disposition home or self-care (01) ==
PROVIDERS: Emergency Medicine; Emergency Provider Student in an Organized Health Care Education/Training Program
DX: F19.10 Other psychoactive substance abuse, uncomplicated (principal); M54.2 Cervicalgia; Z11.52 Encounter for screening for COVID-19; Z20.828 Contact with and (suspected) exposure to other viral communicable diseases; F17.210 Nicotine dependence, cigarettes, uncomplicated; Z79.899 Other long term (current) drug therapy
CPT/HCPCS: 0241U; 36415; 51702; 70450; 72125; 80048; 80076; 80307; 81001; 81003; 83690; 83880; 84484; 85025; 93005; 96360; 99285

== ENCOUNTER → 2023-06-11 22:22 | Outpatient (BNV) | payer OTHER, SELFPAY | PROVIDERS: Emergency Provider Student in an Organized Health Care Education/Training Program; Visit Provider Internal Medicine Cardiovascular Disease | DX: R94.31 Abnormal electrocardiogram [ECG] [EKG] (principal) | CPT/HCPCS: 93010 ==

== ENCOUNTER 2023-11-20 01:33 | Emergency (ER) | payer OTHER, SELFPAY ==
--- NOTE | 2023-11-20 | ECG_ITS ---
Test Reason : OD Blood Pressure : / mmHG Vent. Rate : 061 BPM Atrial Rate : 061 BPM P-R Int : 136 ms QRS Dur : 092 ms QT Int : 476 ms P-R-T Axes : 077 066 052 degrees QTc Int : 479 ms Normal sinus rhythm Nonspecific ST and T wave abnormality Prolonged QT Abnormal ECG When compared with ECG of 11-JUN-2023 22:39, Nonspecific ST and T wave abnormality in anterior leads Referred By: Generic ED Physician Electronically Signed By:NGOZI GUERIN
[2023-11-20 02:06] LABS: Basophils Percent Auto 0.2 % (0-2); Eosinophils Percent Auto 0.5 % (0-4); Hematocrit 32.8 % (37.0-47.0); Imm Gran Abs Auto 0.01 X10*3/uL (0.00-0.03); Imm Gran Pct Auto 0.2 % (0.0-0.4); Lymphocytes Absolute Auto 1.8 X10*3/uL (1.2-4.9); Lymphocytes Percent Auto 31.8 % (20-40); MANUAL DIFF FLAG NO; Mean Corpuscular HGB Conc 33.5 g/dl (31.0-35.0); Mean Corpuscular Hemoglobin 32.6 pg (27.0-33.0); Mean Corpuscular Volume 97.3 fL (80.0-98.0); Mean Platelet Volume 9.2 fL (9.4-12.3); Monocytes Absolute Auto 0.5 X10*3/uL (0.1-1.2); Monocytes Percent Auto 8.6 % (2-11); Neutrophils Absolute Auto 3.3 x10*3/uL (2.0-8.3); Neutrophils Percent Auto 58.7 % (45-73); Platelet Count 175 X10*3/uL (160-400); Red Blood Count 3.37 X10*6/uL (4.20-5.50); Red Cell Distribution Width 13.3 % (11.0-16.0); White Blood Count 5.6 X10*3/uL (4.8-10.8)
[2023-11-20 02:08] VITALS: BP 119/68; BP 136/74; PULSE 61; PULSE 66; RESP 20; TEMP 35.6; O2SAT 99; BMI 22.7
[2023-11-20 02:20] LABS: Alanine Aminotransferase 14 U/L (0-31); Albumin Level 3.7 g/dL (3.5-5.0); Alkaline Phosphatase 74 U/L (39-117); Anion Gap 13 (12-20); Aspartate Amino Transferase 29 U/L (5-31); Bilirubin Total 0.6 mg/dL (0.0-1.0); Blood Urea Nitrogen 20 mg/dL (9-16); Calcium 9.1 mg/dL (8.4-10.2); Carbon Dioxide 24 mmol/L (22-29); Chloride 107 mmol/L (96-108); Creatinine Clr Calc Pharmacy 44.3; Estimated Glomerular Filt Rate > 60; Glucose Fasting 86 mg/dL (60-99); Potassium 3.5 mmol/L (3.3-5.1); Sodium 140 mmol/L (135-145); Total Protein 6.7 g/dL (6.5-8.0)
--- NOTE | 2023-11-20 02:31 | PC.NURSE ---
pt pack changer into hospital attire, belonging secure by security, pt sleeping at this time, ekg completed and labs colleceted and sent.
[2023-11-20 02:37] LABS: Amphetamine Screen Urine Not Detected (Not Detect); Barbiturates, Urine Not Detected (Not Detect); Benzodiazepines Screen Urine Not Detected (Not Detect); Buprenorphine Scr Not Detected (Not Detect); Cannabinoid Screen Urine Not Detected (Not Detect); Cocaine Screen Urine POSITIVE (Not Detect); Fentanyl, urine POSITIVE (Not Detect); Methadone Screen, Urine Positive (Not Detect); Opiate Screen Urine POSITIVE (Not Detect); Oxycodone Screen Urine Not Detected (Not Detect); Phencyclidine Screen Urine Not Detected (Not Detect)
[2023-11-20 03:50] VITALS: BP 124/73; PULSE 70; RESP 20; TEMP 37.1; O2SAT 96
--- NOTE | 2023-11-20 05:23 | PC.NURSE ---
pt is sleeping at this time.
[2023-11-20 05:56] VITALS: BP 122/79; PULSE 89; RESP 16; TEMP 37.1; O2SAT 97
--- NOTE | 2023-11-20 06:06 | PC.NURSE ---
pt un-steady on her feet, pt assisted to the bathroom in a wheel chair.
--- NOTE | 2023-11-20 06:08 | PC.NURSE ---
fall risk socks placed
--- NOTE | 2023-11-20 07:48 | ED_ITS ---
HPI - General Adult General Chief complaint: Overdose Stated complaint: drug use Time Seen by Provider: 11/20/23 07:28 Source: patient, EMS and old records reviewed Mode of arrival: EMS Limitations: no limitations History of Present Illness ED Provider: DR. Garcia HPI narrative: 68-year-old female brought into emergency department by ambulance after was found wandering the streets. Patient in the emergency department is sleeping and does not want to participate in the conversation with the examiner however admitted to use heroin and cocaine last night, declined head injury or headache. Patient keeps saying leave me alone let me sleep. U tox is positive for multiple substance, old record is consistent with history of drug abuse. Related Data Previous Rx's ?Medication ?Instructions ?Recorded permethrin 5 % topical cream 1 appl topical Q14D 2 doses #60 03/18/20 (Elimite) grams naproxen 500 mg tablet (Naprosyn) 500 mg PO BID #20 tabs 08/05/20 cephalexin 500 mg capsule 500 mg PO Q12H 7 days #14 caps 03/05/22 doxycycline monohydrate 100 mg 100 mg PO BID 10 days #20 caps 03/05/22 capsule ibuprofen 600 mg tablet 600 mg PO Q6H PRN pain #60 tabs 03/05/22 Allergies Allergy/AdvReac Type Severity Reaction Status Date / Time metoclopramide [Reglan] Allergy Unknown Abdominal Verified 11/20/23 02:15 Pain Review of Systems 2 Review of Systems: Yes Unobtainable due to mental condition PMFSH Past Medical History Medical History Substance abuse Asthma Social History Social History Unable to assess alcohol history related to: Unknown Alcohol intake: current Alcohol intake frequency: a few times a month Patient Tobacco Use Status: Current everyday Tobacco user Smoked in Last 30 Days: Yes Use of substances other than those prescribed or required for medical reasons: Yes Substance Use Type: Heroin Substance Use Frequency: Chronic Longstanding Last Used Substance: Just Prior to Admission Advance Directives: No Advance Directives Information Provided: Yes Do you have a plan to hurt others: No Plan Physical Exam ED Vital Signs: Vital Signs - 24 hr 11/20/23 02:08 11/20/23 03:50 11/20/23 05:56 Temperature 96.0 F L 98.7 F 98.7 F Pulse Rate 66 70 89 Respiratory Rate 20 20 16 Blood Pressure 119/68 124/73 122/79 Pulse Oximetry 99 96 97 Oxygen Delivery Method Room Air Room Air Room Air 11/20/23 08:18 Temperature 98.1 F Pulse Rate 58 Respiratory Rate 18 Blood Pressure 155/68 H Pulse Oximetry 99 Oxygen Delivery Method Room Air BMI result Body Mass Index 22.7 Vital signs have been reviewed and appear to be correct. Blood pressure elevated. Heart rate normal. Respiratory rate normal. Temperature normal. Oxygen saturation normal. Appearance: Patient is sleeping easily arousable, admitted to using drugs last night No acute distress. Head: Normal external exam. Normocephalic. Atraumatic. No Bal signs noted. No raccoon eyes noted Eyes: PERRLA. EOMI. Conjunctiva and sclera normal. Eyelids normal. ENT: TM's Normal. Pharynx normal. Uvula midline. Moist mucous membranes. No trismus noted. No drooling noted. No muffled voice noted. Neck: Normal inspection. Neck supple. FROM. No adenopathy. Thyroid Normal. No meningeal signs. No neck mass noted. CVS: Normal heart rate and rhythm. Heart sound normal. No murmurs noted. Pulses normal throughout. Respiratory: No respiratory distress. Painless inspiration. Breath sounds normal. No wheezes/rales/rhonchi noted. Chest nontender. No accessory muscle usage noted or decreased air movement noted. Abdomen: Soft and nontender. Bowel sounds normal in all 4 quadrants. No distention noted. No organomegaly noted. No visible injury noted. Back: No CVA tenderness. Full range of motion noted. Skin: Skin warm and dry. Normal skin color. Normal skin turgor. No rashes/lesions/lacerations noted. Extremities: No lower extremity edema. Extremities exhibit normal range of motion. Extremities nontender. Neuro: Cranial nerve exam: II-XII are grossly intact No motor deficit. No sensory deficit. Reflexes normal. Course Reevaluation(s) Reevaluation #1: Patient now is AAO x3, tolerated p.o. intake in the ED, ambulating fine in the ED, will discharge. Time: 12:00 Medical Decision Making Differential Diagnosis Differential Diagnoses: The differential diagnosis associated with the presentation includes (Change mental status due to drug abuse, electrolyte derangement, severe anemia, head injury.) Admission/Observation Consideration of admission/observation: Escalation of care including admission/observation considered Lab Data MDM Lab Attestation statement: I reviewed the patient's lab results. 11/20/23 02:02 11/20/23 02:02 Labs: Lab Results 11/20/23 11/20/23 Range/Units 02:02 02:17 WBC 5.6 (4.8-10.8) X10*3/uL RBC 3.37 L (4.20-5.50) X10*6/uL Hgb 11.0 L (12.0-16.0) g/dl Hct 32.8 L (37.0-47.0) % MCV 97.3 (80.0-98.0) fL MCH 32.6 (27.0-33.0) pg MCHC 33.5 (31.0-35.0) g/dl RDW 13.3 (11.0-16.0) % Plt Count 175 (160-400) X10*3/uL MPV 9.2 L (9.4-12.3) fL Immature Gran % (Auto) 0.2 (0.0-0.4) % Neut % (Auto) 58.7 (45-73) % Lymph % (Auto) 31.8 (20-40) % [place] % (Auto) 8.6 (2-11) % Eos % (Auto) 0.5 (0-4) % Baso % (Auto) 0.2 (0-2) % Lymph # (Auto) 1.8 (1.2-4.9) X10*3/uL [place] # (Auto) 0.5 (0.1-1.2) X10*3/uL Eos # (Auto) 0.0 (0.0-0.4) X10*3/uL Baso # (Auto) 0.0 (0.0-0.2) X10*3/uL Abs Immat Gran (auto) 0.01 (0.00-0.03) X10*3/uL Absolute Neuts (auto) 3.3 (2.0-8.3) x10*3/uL Absolute Nucleated RBC 0.000 (0.0-0.012) X10*3/uL Nucleated RBC % (auto) 0.0 (0.0-0.2) /100WBC Sodium 140 (135-145) mmol/L Potassium 3.5 (3.3-5.1) mmol/L Chloride 107 (96-108) mmol/L Carbon Dioxide 24 (22-29) mmol/L Anion Gap 13 (12-20) BUN 20 H (9-16) mg/dL Creatinine 0.93 (0.5-1.4) mg/dL Estim Creat Clear Calc 44.3 Estimated GFR > 60 Fasting Glucose 86 (60-99) mg/dL Calcium 9.1 (8.4-10.2) mg/dL Total Bilirubin 0.6 (0.0-1.0) mg/dL AST 29 (5-31) U/L ALT 14 (0-31) U/L Alkaline Phosphatase 74 (39-117) U/L Total Protein 6.7 (6.5-8.0) g/dL Albumin 3.7 (3.5-5.0) g/dL Urine Opiates Screen POSITIVE H (Not Detect) Ur Buprenorphine Scrn Not Detected (Not Detect) ng/mL Ur Oxycodone Screen Not Detected (Not Detect) ng/mL Urine Methadone Screen Positive H (Not Detect) ng/mL Urine Fentanyl Screen POSITIVE H (Not Detect) Ur Barbiturates Screen Not Detected (Not Detect) Ur Phencyclidine Scrn Not Detected (Not Detect) Ur Amphetamines Screen Not Detected (Not Detect) U Benzodiazepines Scrn Not Detected (Not Detect) Urine Cocaine Screen POSITIVE H (Not Detect) U Marijuana (THC) Screen Not Detected (Not Detect) Discharge Plan Discharge Clinical Impression: Drug overdose, Altered mental status Patient Disposition: Home, Self-Care Instructions: Adult Overdose (ED) Prescriptions: No Action permethrin [Elimite] 5 % cream 1 appl topical Q14D Qty: 60 1RF Rx Instructions: apply second treatment 14 days after first treatment if live lice remain naproxen [Naprosyn] 500 mg tablet 500 mg PO BID Qty: 20 0RF doxycycline monohydrate 100 mg capsule 100 mg PO BID 10 Days Qty: 20 0RF cephalexin 500 mg capsule 500 mg PO Q12H 7 Days Qty: 14 0RF ibuprofen 600 mg tablet 600 mg PO Q6H PRN (Reason: pain) Qty: 60 0RF Print Language: Burundian
[2023-11-20 08:18] VITALS: BP 155/68; PULSE 58; RESP 18; TEMP 36.7; O2SAT 99
--- NOTE | 2023-11-20 10:01 | PC.NURSE ---
patient awake and alert, given sandwich and apple juice. tolerated well. attempted to call patient daughter prashant, no answer x3
--- NOTE | 2023-11-20 10:11 | PC.NURSE ---
patient began throwing viles of urine, security called. MD at bedside. patient refused to sign d/c papers. ambulated off of unit with steady gait alert and oriented
== END 2023-11-20 10:12 | disposition home or self-care (01) ==
PROVIDERS: Emergency Provider Emergency Medicine
DX: T50.901A Poisoning by unspecified drugs, medicaments and biological substances, accidental (unintentional), initial encounter (principal); R41.82 Altered mental status, unspecified; Y92.410 Unspecified street and highway as the place of occurrence of the external cause; F19.10 Other psychoactive substance abuse, uncomplicated; F17.210 Nicotine dependence, cigarettes, uncomplicated
CPT/HCPCS: 36415; 80053; 80307; 85025; 93005; 99283; 99285

== ENCOUNTER → 2023-11-20 02:20 | Outpatient (BNV) | payer OTHER, SELFPAY | PROVIDERS: Emergency Provider Emergency Medicine; Visit Provider Internal Medicine | DX: R94.31 Abnormal electrocardiogram [ECG] [EKG] (principal) | CPT/HCPCS: 93010 ==

== ENCOUNTER 2024-02-13 13:49 | Emergency (ER) | payer OTHER, SELFPAY ==
[2024-02-13 14:18] VITALS: BP 160/84; PULSE 84; RESP 20; O2SAT 100; BMI 25.7
--- NOTE | 2024-02-13 16:17 | PC.NURSE ---
Patient incontinent of large amount of stool x 2. Cleaned and repositioned. Patient becomes combative while being cleaned. Unable to answer questions , but attempting to get out of bed and ambulate naked in hallway. Re-directed back to bed
--- NOTE | 2024-02-13 16:48 | PC.NURSE ---
Patient still not answering questions, oob ambulating in hallway. Urinating on floor in hallway. Returned to ed 6 via stretcher
[2024-02-13 17:00] VITALS: BP 110/79; PULSE 88; RESP 18; TEMP 36.8; O2SAT 97
--- NOTE | 2024-02-13 17:58 | ED_ITS ---
HPI - Overdose General Chief Complaint: Overdose Stated Complaint: OD,NARCAN GIVEN BY PD,FLAILING,-AGGRESSIVE PER EMS Time Seen by Provider: 02/13/24 16:06 History of Present Illness HPI Narrative: Patient is a 68-year-old female was at the [facility]. Was noted to have decreased respiration given Narcan by EMS. Patient woke up. Refused to answer questions. Patient however eventually decided to get up to go to the bathroom. She soiled herself multiple times in her bed was cleaned up. She did not want to answer any questions at this time. Does not have any complaints. Related Data Allergies Allergy/AdvReac Type Severity Reaction Status Date / Time Unable to Assess Allergy Verified 02/13/24 14:21 Review of Systems Review of Systems: Refused to answer specific review of system PMFSH Past Medical History Attestation statement: The following information was validated with the patient. Physical Exam Vital Signs: Vital Signs: Last Vital Signs Temp 98.3 F 02/13/24 17:00 Pulse 88 02/13/24 17:00 Resp 18 02/13/24 17:00 BP 110/79 02/13/24 17:00 Pulse Ox 97 02/13/24 17:00 O2 Del Method Room Air 02/13/24 17:00 BMI result Body Mass Index 25.7 Appearance: Patient arousable yelling screaming Eyes: Pupils equal, round and reactive to light. ENT: Pharynx normal. Neck: Normal inspection. Neck supple. No lymph nodes noted. No crepitus CVS: Normal heart rate and rhythm. Pulses normal. Normal S1 and S2 Respiratory: No respiratory distress. Breath sounds normal. No Wheezing. No rales Abdomen: Soft and nontender. No rigidity. No distention. good BS x4 Skin: Skin warm and dry. Normal skin color. Normal skin turgor. Extremities: No lower extremity edema. Neurovascular intact to all extremities. No Lacerations. No Rash Neuro: Arousable no acute distress. No motor deficit. No sensory deficit. Moving all extermities. No slurred speech Medical Decision Making Medical Decision Making MDM Narrative: Patient awake alert has no specific complaints but does not want to get up from bed. Has a history of narcotic use. Patient was woken up with Narcan. Monitor in the emergency department. Vital sign has been stable respiratory rate was normal O2 sats 97% on room air lungs are clear. Patient's sugar is in the 80s. No evidence for hypoglycemia. Offer patient a tray. She refused she wants to sleep. Explained to patient the need for follow-up need to stop using recreational drugs Patient offered detox but refused Differential Diagnosis Differential Diagnoses: The differential diagnosis associated with the presentation includes Hypoglycemia, polysubstance abuse Lab Data MDM Lab Attestation statement: I reviewed the patient's lab results. Labs: Lab Results 02/13/24 Range/Units 17:59 POC Glucose 85 (60-115) mg/dL Independent Historian Clinical information obtained from an independent historian. History obtained from or confirmed by: EMS Social Determinants Patient?s care significantly limited by Social Determinants of Health including: Problems related to primary support group and Unemployment Discharge Plan Discharge Clinical Impression: Drug overdose Patient Disposition: Home, Self-Care Instructions: Adult Overdose (ED) Additional Instructions: You were given a states supply Narcan kit. Referrals: [facility] [Provider Group] (Please go to detox. Please stop using heroin. You stopped breathing today. Continuing to use heroin can kill you.)
[2024-02-13 18:03] LABS: Glucose, Whole Blood 85 mg/dL (60-115)
[2024-02-13 18:06] VITALS: BP 160/74; PULSE 72; RESP 16; O2SAT 99
--- NOTE | 2024-02-13 18:08 | PC.NURSE ---
Called [facility]. speech therapy director stating that patient does go there daily but he does not have an emergency contact info for her. States they could pick her up and bring her home but they do not know where she lives.
--- NOTE | 2024-02-13 18:47 | PC.NURSE ---
Attempting to get patient oob for ambulation trial- patient rolling over in bed stating I will kick you in the face
--- NOTE | 2024-02-13 19:24 | PC.NURSE ---
pt is awake and refusing vitals. refusing to change into own clothes. pt standing oob and stating i cant go let me sleep. resp even and unlabored speaking full clear sentences. rn trauma and MD aware and in agreement with optical assistant by security. pt refused narcan.
--- NOTE | 2024-02-13 21:09 | PC.NURSE ---
patients daughters came to ED to pick pt up. both in agreement with d/c and assisted pt to dress and leave via wheelchair. MD in agreement as well.
[2024-02-13 21:12] VITALS: BP 160/74; PULSE 72; RESP 16; TEMP -17.7; TEMP 0; O2SAT 99
== END 2024-02-13 20:30 | disposition home or self-care (01) ==
PROVIDERS: Emergency Provider Emergency Medicine Emergency Medical Services
DX: T50.901A Poisoning by unspecified drugs, medicaments and biological substances, accidental (unintentional), initial encounter (principal); Y92.199 Unspecified place in other specified residential institution as the place of occurrence of the external cause; F19.10 Other psychoactive substance abuse, uncomplicated; R73.9 Hyperglycemia, unspecified
CPT/HCPCS: 82947; 99284

== ENCOUNTER 2024-08-31 10:27 | Emergency (ER) | payer OTHER, SELFPAY ==
[2024-08-31] VITALS (9 sets, daily range): BP systolic 112–166; BP diastolic 51–102; PULSE 56–74; RESP 12–20; TEMP 36.1–37.1; O2SAT 94–100; BMI 24.1
--- NOTE | 2024-08-31 10:47 | ECG_ITS ---
Test Reason : drug use Blood Pressure : */* mmHG Vent. Rate : 75 BPM Atrial Rate : 75 BPM P-R Int : 112 ms QRS Dur : 90 ms QT Int : 422 ms P-R-T Axes : 75 62 48 degrees QTcB Int : 471 ms Sinus rhythm with marked sinus arrhythmia Otherwise normal ECG When compared with ECG of 20-Nov-2023 02:20, No significant change was found Referred By: Meliton Rebolledo Electronically Signed By: Jalil Gee
--- NOTE | 2024-08-31 10:54 | ED_ITS ---
HPI - Altered Mental Status General Chief Complaint: Altered Mental Status Stated Complaint: ETOH Time Seen by Provider: 08/31/24 10:47 History of Present Illness ED Provider: Meliton Rebolledo MD HPI narrative: Limited history the patient due to clinical condition. Triage note reports AMS from detox smoked cocaine, bizarre behaviors intermittently obtunded. Denying SI HI and she was conversational at triage. Related Data Previous Rx's ?Medication ?Instructions ?Recorded permethrin 5 % topical cream 1 appl topical Q14D 2 doses #60 03/18/20 (Elimite) grams naproxen 500 mg tablet (Naprosyn) 500 mg PO BID #20 tabs 08/05/20 cephalexin 500 mg capsule 500 mg PO Q12H 7 days #14 caps 03/05/22 doxycycline monohydrate 100 mg 100 mg PO BID 10 days #20 caps 03/05/22 capsule ibuprofen 600 mg tablet 600 mg PO Q6H PRN pain #60 tabs 03/05/22 Allergies Allergy/AdvReac Type Severity Reaction Status Date / Time metoclopramide [Reglan] Allergy Unknown Abdominal Verified 08/31/24 10:46 Pain PMFSH Past Medical History Medical History Substance abuse Asthma Social History Social History Unable to assess alcohol history related to: Unknown Alcohol intake: current Alcohol intake frequency: a few times a month Patient Tobacco Use Status: Current everyday Tobacco user Substance Use Type: Heroin Substance Use Frequency: Chronic Longstanding Advance Directives: No Advance Directives Information Provided: No Physical Exam ED Vital Signs: Vital Signs - 24 hr 08/31/24 10:42 08/31/24 11:41 08/31/24 11:58 Temperature 98.4 F 97.9 F Pulse Rate 73 59 63 Respiratory Rate 16 14 12 Blood Pressure 166/78 H 138/59 L 139/65 Pulse Oximetry 98 98 99 Oxygen Delivery Method Room Air Room Air Room Air 08/31/24 14:26 08/31/24 16:00 08/31/24 17:54 Temperature 97.6 F 98.7 F 98.0 F Pulse Rate 63 59 59 Respiratory Rate 15 12 20 Blood Pressure 129/69 128/62 141/72 H Pulse Oximetry 100 99 98 Oxygen Delivery Method Room Air Room Air Room Air 08/31/24 17:54 08/31/24 18:00 08/31/24 20:00 Temperature 97.0 F 97.9 F Pulse Rate 56 56 67 Respiratory Rate 13 17 12 Blood Pressure 156/86 H 162/71 H 133/62 Pulse Oximetry 97 96 100 Oxygen Delivery Method Room Air Room Air Room Air 08/31/24 22:00 09/01/24 05:56 Temperature 97.9 F Pulse Rate 59 57 Respiratory Rate 12 16 Blood Pressure 112/51 L 136/44 L Pulse Oximetry 99 98 Oxygen Delivery Method Room Air Room Air BMI result Body Mass Index 24.1 Medical Decision Making Medical Decision Making [facility] Narrative: 69-year-old female reported to be coming in from detox. Reported to triage that she smoked cocaine offered minimal history to me.. Delirious intermittently sleeping but easily arousable no SI or HI reported to triage she denies this to me. No is injuries on my examination patient needs continued monitoring until she is safe to be fully assessed and likely discharged Lab Data [facility] Lab Attestation statement: I reviewed the patient's lab results. 08/31/24 10:56 08/31/24 10:56 Labs: Lab Results 08/31/24 08/31/24 Range/Units 10:56 18:23 WBC 5.3 (4.8-10.8) X10*3/uL RBC 3.53 L (4.20-5.50) X10*6/uL Hgb 11.3 L (12.0-16.0) g/dl Hct 34.0 L (37.0-47.0) % MCV 96.3 (80.0-98.0) fL MCH 32.0 (27.0-33.0) pg MCHC 33.2 (31.0-35.0) g/dl RDW 13.2 (11.0-16.0) % Plt Count 200 (160-400) X10*3/uL MPV 9.3 L (9.4-12.3) fL Immature Gran % (Auto) 0.6 H (0.0-0.4) % Neut % (Auto) 48.6 (45-73) % Lymph % (Auto) 40.8 H (20-40) % [place] % (Auto) 8.5 (2-11) % Eos % (Auto) 1.1 (0-4) % Baso % (Auto) 0.4 (0-2) % Lymph # (Auto) 2.2 (1.2-4.9) X10*3/uL [place] # (Auto) 0.5 (0.1-1.2) X10*3/uL Eos # (Auto) 0.1 (0.0-0.4) X10*3/uL Baso # (Auto) 0.0 (0.0-0.2) X10*3/uL Abs Immat Gran (auto) 0.03 (0.00-0.03) X10*3/uL Absolute Neuts (auto) 2.6 (2.0-8.3) x10*3/uL Absolute Nucleated RBC 0.000 (0.0-0.012) X10*3/uL Nucleated RBC % (auto) 0.0 (0.0-0.2) /100WBC Sodium 140 (135-145) mmol/L Potassium 4.1 (3.3-5.1) mmol/L Chloride 106 (96-108) mmol/L Carbon Dioxide 25 (22-29) mmol/L Anion Gap 13 (12-20) BUN 26 H (9-16) mg/dL Creatinine 0.97 (0.5-1.4) mg/dL Estim Creat Clear Calc 49.9 Estimated GFR 57 Random Glucose 124 H (60-115) mg/dL Calcium 8.9 (8.4-10.2) mg/dL Total Bilirubin 0.4 (0.0-1.0) mg/dL AST 50 H (5-31) U/L ALT 24 (0-31) U/L Alkaline Phosphatase 75 (39-117) U/L Total Protein 7.2 (6.5-8.0) g/dL Albumin 3.8 (3.5-5.0) g/dL Urine Color Yellow Urine Appearance Clear Urine pH 6.0 (5.0-9.0) Ur Specific [place] 1.025 (1.005-1.025) Urine Protein Trace (Neg-Trace) mg/dL Urine Glucose (UA) Negative (Negative) mg/dL Urine Ketones Trace (Negative) mg/dL Urine Blood Moderate (2+) H (Negative) Urine Nitrite Negative (Negative) Ur Leukocyte Esterase Negative (Negative) Urine RBC >20 H (0-2) /HPF Urine WBC 0-5 (0-5) /HPF Ur Squamous Epith Cells 3-5 (0-2) /HPF Urine Bacteria Trace (None Seen) Hyaline Casts 0-2 (0-2) /LPF Urine Opiates Screen POSITIVE H (Not Detect) Ur Buprenorphine Scrn Not Detected (Not Detect) ng/mL Ur Oxycodone Screen Not Detected (Not Detect) ng/mL Urine Methadone Screen Positive H (Not Detect) ng/mL Urine Fentanyl Screen POSITIVE H (Not Detect) Ur Barbiturates Screen Not Detected (Not Detect) Ur Phencyclidine Scrn Not Detected (Not Detect) Ur Amphetamines Screen Not Detected (Not Detect) U Benzodiazepines Scrn Not Detected (Not Detect) Urine Cocaine Screen POSITIVE H (Not Detect) U Marijuana (THC) Screen Not Detected (Not Detect) Ethyl Alcohol < 10 mg/dL Independent Interpretation I performed an independent interpretation of an: EKG (Sinus rhythm rate 75. Premature atrial beats. No acute ischemic changes. No changes from prior) Discharge Plan Discharge Clinical Impression: Acute drug intoxication Patient Disposition: Home, Self-Care Instructions: Acute Delirium (ED) Additional Instructions: _ DISCHARGE DIAGNOSES: Drug intoxication HISTORY OF PRESENTATION: ?You arrived after suspected to be using drugs confused EMERGENCY DEPARTMENT COURSE,TESTS, TREATMENTS: While in the ED today we did basic blood work and monitored you for several hours DISCHARGE MEDICATIONS: ?[We have made no changes to your regular medication regimen] FOLLOW-UP: ?Call your primary or general physician soon as possible to discuss your symptoms, your ED visit and to discuss follow up plans [06] INSTRUCTIONS ?& RETURN PRECAUTIONS: If any symptoms change first call your primary physician, if it is after-hours your primary doctors office should have a provider landfill gas collection system operator you can speak with. If the symptoms are severe or very concerning to you then call 911 or return to the ED. [07] Meliton Rebolledo MD Emergency Physician [facility] Prescriptions: No Action permethrin [Elimite] 5 % cream 1 appl topical Q14D Qty: 60 1RF Rx Instructions: apply second treatment 14 days after first treatment if live lice remain naproxen [Naprosyn] 500 mg tablet 500 mg PO BID Qty: 20 0RF doxycycline monohydrate 100 mg capsule 100 mg PO BID 10 Days Qty: 20 0RF cephalexin 500 mg capsule 500 mg PO Q12H 7 Days Qty: 14 0RF ibuprofen 600 mg tablet 600 mg PO Q6H PRN (Reason: pain) Qty: 60 0RF Interventions: ED Discharge Assessment Last Done: 09/01/24 06:36 Discharge Date/Time: 09/01/24 07:01 Print Language: Slovak
[2024-08-31 11:00] LABS: MANUAL DIFF FLAG NO
[2024-08-31 11:08] LABS: Basophils Percent Auto 0.4 % (0-2); Eosinophils Absolute Auto 0.1 X10*3/uL (0.0-0.4); Eosinophils Percent Auto 1.1 % (0-4); Hemoglobin 11.3 g/dl (12.0-16.0); Imm Gran Abs Auto 0.03 X10*3/uL (0.00-0.03); Imm Gran Pct Auto 0.6 % (0.0-0.4); Lymphocytes Absolute Auto 2.2 X10*3/uL (1.2-4.9); Lymphocytes Percent Auto 40.8 % (20-40); Mean Corpuscular HGB Conc 33.2 g/dl (31.0-35.0); Mean Corpuscular Volume 96.3 fL (80.0-98.0); Mean Platelet Volume 9.3 fL (9.4-12.3); Monocytes Absolute Auto 0.5 X10*3/uL (0.1-1.2); Monocytes Percent Auto 8.5 % (2-11); Neutrophils Absolute Auto 2.6 x10*3/uL (2.0-8.3); Neutrophils Percent Auto 48.6 % (45-73); Platelet Count 200 X10*3/uL (160-400); Red Blood Count 3.53 X10*6/uL (4.20-5.50); Red Cell Distribution Width 13.2 % (11.0-16.0); White Blood Count 5.3 X10*3/uL (4.8-10.8)
[2024-08-31 11:14] LABS: Ethanol < 10 mg/dL
--- NOTE | 2024-08-31 11:31 | PC.NURSE ---
Patient is a 69 yo female with AMS from detox smoked cocaine, bizarre behaviors intermittently obtunded. Denying SI HI and she was conversational at triage. PMH: polysubstance abuse and asthma. Patient lethargic but arrousable to name. snowsport instructor maintianed and NSR noted. Lungs clear bilat. Respirations even and non-labored. Abdomen soft, flat, non-tender with positive bowel sounds. Positive pedal pulses with no edema.
[2024-08-31 11:33] LABS: Alanine Aminotransferase 24 U/L (0-31); Albumin Level 3.8 g/dL (3.5-5.0); Alkaline Phosphatase 75 U/L (39-117); Anion Gap 13 (12-20); Aspartate Amino Transferase 50 U/L (5-31); Bilirubin Total 0.4 mg/dL (0.0-1.0); Blood Urea Nitrogen 26 mg/dL (9-16); Calcium 8.9 mg/dL (8.4-10.2); Carbon Dioxide 25 mmol/L (22-29); Chloride 106 mmol/L (96-108); Creatinine Clr Calc Pharmacy 49.9; Estimated Glomerular Filt Rate 57; Glucose Random 124 mg/dL (60-115); Potassium 4.1 mmol/L (3.3-5.1); Sodium 140 mmol/L (135-145); Total Protein 7.2 g/dL (6.5-8.0)
[2024-08-31 18:29] LABS: Appearance Urine Clear; Color Urine Yellow; Glucose Urine UA Negative (Negative); Leukocyte Esterase Urine Negative (Negative); Nitrite Urine Negative (Negative); Specific Gravity - Urine 1.025 (1.005-1.025); UMIC TRIGGER UACC YES; Urine Blood Moderate (2+) (Negative); Urine Ketones Trace mg/dL (Negative); Urine Protein Trace mg/dL (Neg-Trace)
--- NOTE | 2024-08-31 18:31 | PC.NURSE ---
Patient now alert and oriented, able to ambulate to the bathroom with a steady gait. Dinner provided at this time.
[2024-08-31 18:35] LABS: Bacteria Urine Trace (None Seen); Hyaline Casts Urine 0-2 /LPF (0-2); RBC Urine >20 /HPF (0-2); WBC Urine 0-5 /HPF (0-5)
[2024-08-31 18:40] LABS: Amphetamine Screen Urine Not Detected (Not Detect); Barbiturates, Urine Not Detected (Not Detect); Benzodiazepines Screen Urine Not Detected (Not Detect); Buprenorphine Scr Not Detected (Not Detect); Cannabinoid Screen Urine Not Detected (Not Detect); Cocaine Screen Urine POSITIVE (Not Detect); Fentanyl, urine POSITIVE (Not Detect); Methadone Screen, Urine Positive (Not Detect); Opiate Screen Urine POSITIVE (Not Detect); Oxycodone Screen Urine Not Detected (Not Detect); Phencyclidine Screen Urine Not Detected (Not Detect)
--- NOTE | 2024-08-31 23:00 | PC.NURSE ---
Assumed care of this Pt at 2300.
--- NOTE | 2024-09-01 04:09 | PC.NURSE ---
Pt awake, ambulated to BR independently with steady gait. Refused vitals.
[2024-09-01 05:56] VITALS: BP 136/44; PULSE 57; RESP 16; TEMP 36.6; O2SAT 98
[2024-09-01 06:36] VITALS: BP 136/44; PULSE 57; RESP 16; TEMP 36.6; O2SAT 98
== END 2024-09-01 07:01 | disposition home or self-care (01) ==
PROVIDERS: Emergency Medicine; Emergency Provider Emergency Medicine
DX: R41.82 Altered mental status, unspecified (principal); F14.10 Cocaine abuse, uncomplicated; F91.9 Conduct disorder, unspecified; I49.8 Other specified cardiac arrhythmias; Z79.899 Other long term (current) drug therapy; F17.210 Nicotine dependence, cigarettes, uncomplicated
CPT/HCPCS: 36415; 80053; 80307; 81001; 85025; 93005; 99284; 99285

== ENCOUNTER → 2024-08-31 10:47 | Outpatient (BNV) | payer OTHER, SELFPAY | PROVIDERS: Emergency Provider Emergency Medicine; Visit Provider Internal Medicine Cardiovascular Disease | DX: F19.90 Other psychoactive substance use, unspecified, uncomplicated (principal) | CPT/HCPCS: 93010 ==

== ENCOUNTER 2024-10-03 12:18 | Emergency (ER) | payer OTHER, SELFPAY ==
[2024-10-03 12:23] VITALS: BP 126/80; PULSE 85; O2SAT 99
[2024-10-03 12:26] VITALS: BP 116/58; PULSE 71; RESP 16; TEMP 36.8; O2SAT 95; BMI 36.8
--- NOTE | 2024-10-03 12:42 | ED_ITS ---
HPI - General Adult General Chief complaint: Altered Mental Status Stated complaint: ANONYMOUS MEDICINE INGESTION PER EMS Time Seen by Provider: 10/03/24 12:40 Source: patient and EMS Mode of arrival: EMS Limitations: no limitations History of Present Illness ED Provider: Jaye Hutchinson PA-C HPI narrative: Patient is a 69 year old assigned female at with a history of polysubstance abuse / use presenting to the emergency department today after ingesting unknown gummies from a stranger. Patient states that she helped a stranger open a container of gummy bears on the bus and as a reward, she was given 2 of these bears and then felt as though her head was heavy . Patient denies any dizziness, lightheadedness, abdominal pain, nausea, vomiting, fever, chills, blurry vision, double vision, loss of vision, chest pain, difficulty breathing, shortness of breath, back pain, night sweats, pain with urination, increased urinary frequency, increased urinary urgency, blood in her urine or stool, syncope or a near syncopal episode, recent trauma or falls, bowel incontinence, bladder incontinence, or any other complaints at this time. Related Data Previous Rx's ?Medication ?Instructions ?Recorded permethrin 5 % topical cream 1 appl topical Q14D 2 dos es #60 03/18/20 (Elimite) grams naproxen 500 mg tablet (Naprosyn) 500 mg PO BID #20 ta bs 08/05/20 cephalexin 500 mg capsule 500 mg PO Q12H 7 days #14 ca ps 03/05/22 doxycycline monohydrate 100 mg 100 mg PO BID 10 days # 20 caps 03/05/22 capsule ibuprofen 600 mg tablet 600 mg PO Q6H PRN pain #60 t abs 03/05/22 Allergies Allergy/AdvReac Type Severity Reaction Status Date / Time metoclopramide (Reglan) Allergy Unknown Abdominal Verified 10/03/24 12:29 Pain Review of Systems Constitutional: Constitutional: Reports no additional constitutional complaints, Denies chills, Denies fever(s) and Denies night sweats Eyes: Eyes: Reports no additional eye complaints, Denies blurry vision, Denies change in vision, Denies diplopia, Denies eye discharge, Denies loss of vision and Denies eye pain ENT: Denies dizziness Cardiovascular: Cardiovascular: Reports no additional cardiovascular complaints, Denies chest pain, Denies lightheadedness, Denies Loss of Consciousness and Denies dyspnea Respiratory: Respiratory: Reports no additional respiratory complaints and Denies dyspnea Gastrointestinal: Gastrointestinal: Reports no additional gastrointestinal complaints, Denies abdominal pain, Denies melena, Denies hematochezia, Denies change in bowel habits and Denies change in stool character Genitourinary: Genitourinary: Denies hematuria, Denies urinary frequency, Denies dysuria, Denies urinary incontinence, Denies urinary hesitancy and Denies urinary urgency Musculoskeletal: Musculoskeletal: Reports no additional musculoskeletal complaints, Denies numbness and Denies tingling Neurologic: Denies dizziness, Denies loss of vision, Denies numbness and Denies tingling Psychiatric: Psychiatric: Reports no additional psychiatric complaints Endocrine: Endocrine: Reports no additional endocrine complaints Hematologic/Lymphatic: Hematologic/Lymphatic: Reports no additional hematologic/lymphatic complaints Allergic/Immunologic: Allergic/Immunologic: Reports no additional allergic/immunologic complaints PMFSH Past Medical History Attestation statement: The following information was validated with the patient. Source: old records reviewed and nursing notes reviewed Medical History Substance abuse Asthma Social History Social History Unable to assess alcohol history related to: Unknown Alcohol intake: current Alcohol intake frequency: a few times a month Patient Tobacco Use Status: Current everyday Tobacco user Substance Use Type: Heroin Advance Directives: No Advance Directives Information Provided: Yes Physical Exam ED Vital Signs: Vital Signs - 24 hr 10/03/24 12:26 10/03/24 12:44 10/03/24 23:13 Temperature 98.3 F 98.3 F 98.1 F Pulse Rate 71 71 59 Respiratory Rate 16 16 Blood Pressure 116/58 L 116/58 L 116/53 L Pulse Oximetry 95 95 97 Oxygen Delivery Method Room Air Room Air Room Air 10/04/24 02:15 Temperature 98.1 F Pulse Rate 59 Respiratory Rate 18 Blood Pressure 116/53 L Pulse Oximetry 97 Oxygen Delivery Method Room Air BMI result Body Mass Index 36.8 Const General: cooperative, no acute distress, alert and awake Nutritional Appearance: well nourished Orientation/consciousness: patient oriented x3 HENMT Head: Yes normal to inspection and Yes atraumatic Ears: hearing grossly normal bilaterally and external ears normal General nose exam: Normal external nose present, no nasal discharge noted and no epistaxis Face and sinus: Yes normal facial exam, No abrasion and No laceration Mouth: Normal oral and palatal mucosa present, no drooling and no muffled voice Eyes General: appearance normal, both eyes and all related structures Periorbital: periorbital findings normal Eyelids: Yes eyelids normal Conjunctivae: conjunctivae normal Pupils: Equal, round and reactive pupils present EOM: EOMs intact bilaterally Neck Neck: Yes normal visual inspection, Yes full ROM and Yes no lymphadenopathy Resp Effort & Inspection: normal respiratory effort and able to speak in complete sentences Neuro General: patient oriented x3, moves all extremities and CN's II-XI intact bilaterally Cranial nerves: Yes Equal, round and reactive pupils present Cognition (Neuro): normal cognition Extrem General: Yes normal to inspection, Yes full ROM and Yes capillary refill normal Psych Appearance: grossly normal Mental Status: mental status grossly normal Affect: normal affect Attitude: cooperative Thought process: Normal thought process present Thought content: Normal thought content present Insight: Good insight present (Psych) Course Course Course Narrative: 7:01 PM 10/03/2024 (Olga NOYOLA): Patient is signed out to this provider at shift change, in summary patient is a 69-year-old female presenting to the ED after ingesting 2 gummies from an unknown individual. Patient has been hemodynamically stable, sleeping comfortably throughout majority of ED course, we will perform sober re-evaluation and disposition accordingly. 1:09 AM 10/04/2024 (Olga NOYOLA): The patient is now awake, ambulating with a steady gait, reports she is feeling improved and is comfortable with plan for discharge home. We will discuss transportation with charge nurse to facilitate safe discharge home. Medical Decision Making Medical Decision Making MDM Narrative: Patient is a 69 year old assigned female at with a history of polysubstan ce abuse / use presenting to the emergency department today after ingesting unknown gummies from a stranger. Patient's physical exam was as noted in the physical exam portion of this note. I explained my physical exam findings to the patient. I answered all questions asked by the patient. Patient remains in the department in observation - while continuing to rest. Patient will be signed out to the evening PA pending awakening and ambulating safely. Once patient is awake and ambulates safely, she may be discharged. Differential Diagnosis Differential Diagnoses: The differential diagnosis associated with the presentation includes Polysubstanc use Admission/Observation Consideration of admission/observation: Escalation of care including admission/observation considered Patient would have been admitted to the hospital had her work up had any findi ngs where hospital admission was appropriate and her clinical presentation warranted hospital admission. Independent Historian Clinical information obtained from an independent historian. History obtained from or confirmed by: EMS (EMS provided additional history and confirmed the history provided by the patient. ) Discharge Plan Discharge Clinical Impression: Mild substance use disorder Patient Disposition: Home, Self-Care Instructions: Cannabis Use Disorder (ED) Additional Instructions: Thank you for choosing [facility]'s Emergency Department for your care today. Your symptoms today appear related to your ingestion of the 2 ?gummies? you received from an individual on the bus today. At this time there is no evidence of an acute process requiring admission to the hospital or continued ED observation, and it is safe to discharge you home. Please do not take gummies, candies, or pills from an individual you do not know. Please stay well hydrated and get plenty of rest. Please follow up with your primary care physician for re-evaluation, additional management of your symptoms, and continued preventative care. If you do not have a primary care physician, please call the [facility] at [phone] to establish a new primary care physician. While waiting to establish your new primary care physician, you can call our Walk[facility]in [facility] at [phone] for non-emergency needs. Please return to the emergency department if you develop a severe or sudden change in your symptoms, a fever over 100.4 that does not improve with Tylenol or Ibuprofen, recurrent vomiting, or any other new or worsening symptoms or concerns. Prescriptions: No Action permethrin [Elimite] 5 % cream 1 appl topical Q14D Qty: 60 1RF Rx Instructions: apply second treatment 14 days after first treatment if live lice remain naproxen [Naprosyn] 500 mg tablet 500 mg PO BID Qty: 20 0RF doxycycline monohydrate 100 mg capsule 100 mg PO BID 10 Days Qty: 20 0RF cephalexin 500 mg capsule 500 mg PO Q12H 7 Days Qty: 14 0RF ibuprofen 600 mg tablet 600 mg PO Q6H PRN (Reason: pain) Qty: 60 0RF Interventions: ED Discharge Assessment Last Done: 10/04/24 02:15 Discharge Date/Time: 10/04/24 01:15 Print Language: Sinhala
[2024-10-03 12:44] VITALS: BP 116/58; PULSE 71; RESP 16; TEMP 36.8; O2SAT 95
--- NOTE | 2024-10-03 12:46 | PC.NURSE ---
Pt A&O X4 VSS Able to recall what happened but does not know specifically what she took. Pt with no complaints and NAD. Seen by provider- safety check being done by security.
--- OUTSIDE RECORDS SUMMARY | 2024-10-03 13:23 | XMS_ITS | Clinical Summary ---
Author Organization [employer] Address [address] [facility] [facility] [address] [place] [address] Care Team Providers Care Cuff Setter Name Role Phone IdaliaAdriana cortez SUDHA Primary Care Provider [phone] Allergies Active Allergy Reactions Criticality Noted Date Comments Metoclopramide High 04/13/2010 Other reaction(s): unspecified Medications acetaminophen (Tylenol) 325 MG tablet TAKE 2 TABLETS BY MOUTH EVERY 4 HOURS FOR 7 DAYS (LIMIT 4000MG OF TYLENOL/ACETAM INOPHEN PER DAY) 3 Active Ventolin HFA 108 (90 Base) MCG/ACT inhaler INHALE 2 PUFFS BY MOUTH EVERY 4 HOURS NEEDED FOR WHEEZING OR SHORTNESS OF BREATH 3 Active bacitracin 500 UNIT/GM ointment APPLY TOPICALLY TO AFFECTED AREA EVERY DAY 3 Active gabapentin (Neurontin) 300 MG capsule TAKE 1 CAPSULE BY MOUTH THREE TIMES A DAY FOR 14 DAYS 3 Active melatonin 3 MG tablet TAKE 2 TABLETS (6 MG) BY MOUTH EVERY DAY AT BEDTIME FOR 10 DAYS 3 Active methadone (Dolophine) 10 MG/5ML solution 40 mg in [employer] 1 Active ibuprofen 600 MG tablet Take 600 mg by mouth. 3 Active Active Problems Problem Noted Date Diagnosed Date TBI (traumatic brain injury) 07/27/2023 History of broken collarbone 04/12/202307/2023 Chronic GERD 04/12/2023 04/12/2023 Esophageal hiatal hernia 04/12/2023 024 Asthma 02/16/2014 Tobacco dependence syndrome 02/16/2014 Anxiety state 09/28/2011 Depressive disorder 09/28/2011 Combined drug dependence excluding opioids 09/27 Opioid dependence 09/28/2011 Posttraumatic stress disorder 09/28/2011 Immunizations Immunization Administration Dates Next Due Hep B, adult 03/29/2015 Influenza High-dose Quadrivalent Preservative Fr ee 05/04/2022 Influenza injectable quadriv alent IIV4 with preservative 04/21/2019,03/29/2015 Influenza injectable quadrivalent preservative f ree 01/11/2021,05/14/2020 Influenza, IIV3, injectable 01/15/2014 Influenza, Split (incl. purified surface antigen ) 02/05/2013 Pfizer Covid-19 Vaccine 12+ Bivalent 06/19/2022 Tdap 11/09/2019,03/29/2015 Social History Tobacco Use Types Packs/Day Years Used Date Smoking Tobacco: Every Day Cigarettes Passive Smoke Exposure: Past Smokeless Tobacco: Never Tobacco Cessation:Ready to Q uit: Not Asked; Counseling Given: Not Answered Comments Unknown Sex and Gender Information Value Date Recorded Sex Assigned at Female 02/06/2022 10:14 AM EDT Legal Sex Female 10:14 AM EDT Gender Identity Female 02/06/2022 10:14 AM EDT Sexual Orientation Straight 02/06/2022 10 :14 AM EDT Last Filed Vital Signs Vital Sign Reading Time Taken Comments Blood Pressure 151/83 07/27/2023 3:39 PM EDT Pulse 85 07/27/2023 3:39 PM EDT Temperature 36.7 C (98.1 F) 07/27/2023 3:39 PM EDT Respiratory Rate 16 07/27/2023 3:39 PM EDT Oxygen Saturation 97% 07/27/2023 3:39 PM EDT Inhaled Oxygen Concentration - - Weight 65.8 kg (145 lb) 07/27/2023 3:39 PM EDT Height 154.9 cm (5' 1 ) 01/11/2021 12:10 AM EDT Body Mass Index 27.4 01/11/2021 12:10 AM EDT Plan of Treatment Health Maintenance Due Date Last Done Comments CT Colonography 1956 Colonoscopy 1956 Colorectal Cancer Screening 1956 Depression Screening 1956 FIT DNA/Cologuard 1956 FIT 1956 FOBT 1956 SDOH Screening 1956 Sigmoidoscopy 1956 Alcohol/Substance Use Screening 1968 Hepatitis C Screening 1974 Pneumococcal Vaccine: 50+ Years (1 of 2 - PCV) 1975 Mammogram 1996 Zoster Vaccines (1 of 2) 2006 Hepatitis B Vaccines (2 of 3 - 19+ 3-dose series) 04/26/2015 03/29/2015 RSV Patients and Patients Aged 60 years or older (1 - Risk 60-74 years 1-dose series) 2016 COVID-19 Vaccine ( - season) 2023 06/19/2022, 01/02/2022, 07/14/2020 Tobacco Screening 07/26/2024 07/27/2023 Influenza Vaccine (Season Ended) 2024 05/04/2022, 01/11/2021, 05/14/2020, Additional history exists DTaP/Tdap/Td Vaccines (3 - Td or Tdap) 11/08/2029 11/09/2019, 03/29/2015 HIB Vaccines Aged Out No longer eligi ble based on patient's age to complete this topic HPV Vaccines Aged Out No longer eligi ble based on patient's age to complete this topic Hepatitis A Vaccines Aged Out No long er eligible based on patient's age to complete this topic IPV Vaccines Aged Out No longer eligi ble based on patient's age to complete this topic Meningococcal B Vaccine Aged Out No l onger eligible based on patient's age to complete this topic Meningococcal Vaccine Aged Out No alec theresa eligible based on patient's age to complete this topic RSV under 20 months Aged Out No longe r eligible based on patient's age to complete this topic Rotavirus Vaccines Aged Out No longer eligible based on patient's age to complete this topic Insurance [facility]ARE < 65 [place] [id number] Care Teams Cuff Setter Relationship Specialty Start Date End Date Adriana Ernandez NP [address] [place] [id number] PCP - General Family Medicine 03/15/23
[2024-10-03 23:13] VITALS: BP 116/53; PULSE 59; TEMP 36.7; O2SAT 97
[2024-10-04 02:15] VITALS: BP 116/53; PULSE 59; RESP 18; TEMP 36.7; O2SAT 97
== END 2024-10-04 01:15 | disposition home or self-care (01) ==
PROVIDERS: Emergency Provider Emergency Medicine
DX: R41.82 Altered mental status, unspecified (principal); F19.10 Other psychoactive substance abuse, uncomplicated
CPT/HCPCS: 99284

== ENCOUNTER 2024-10-21 17:06 | Emergency (ER) | payer OTHER, SELFPAY ==
--- NOTE | ~2024-10-21 | CT_ITS ---
CLINICAL HISTORY: Found on floor, altered mental status CT head without contrast Comparison: None Findings: There is no acute intracranial hemorrhage. Ventricles are within normal limits in size. No mass effect or midline shift is present. The michael-white matter differentiation appears normal. The visualized portions of the orbits, paranasal sinuses, and mastoids are unremarkable. No fractures are identified. IMPRESSION: No acute intracranial abnormality. This document has been electronically signed by: Cong Bal MD on 10/22/2024 03:08:12
[2024-10-21 17:12] VITALS: BP 136/74; PULSE 81; O2SAT 97
[2024-10-21 17:28] VITALS: BP 120/69; PULSE 78; RESP 20; TEMP 36.6; O2SAT 96; BMI 25.7
--- NOTE | 2024-10-21 19:05 | ED.GENADULT ---
HPI - General Adult General Chief complaint: ETOH/Substance Use Stated complaint: found on ground, unsteady ,strange behavior Time Seen by Provider: 10/21/24 17:41 Source: EMS Mode of arrival: EMS Limitations: altered mental status History of Present Illness ED Provider: Dr. Magdalena Andrade HPI narrative: Patient comes to the emergency room via ambulance. According to EMS, patient was found unresponsive on the ground. Patient has been here in the emergency room previously, usually for polysubstance abuse and overdose. Patient is somnolent but wakes up easily to her name, patient wakes up yelling random noises, not making any sense and then goes back to sleep Related Data Previous Rx's ?Medication ?Instructions ?Recorded permethrin 5 % topical cream 1 appl topical Q14D 2 doses #60 03/18/20 (Elimite) grams naproxen 500 mg tablet (Naprosyn) 500 mg PO BID #20 tabs 08/05/20 cephalexin 500 mg capsule 500 mg PO Q12H 7 days #14 caps 03/05/22 doxycycline monohydrate 100 mg 100 mg PO BID 10 days #20 caps 03/05/22 capsule ibuprofen 600 mg tablet 600 mg PO Q6H PRN pain #60 tabs 03/05/22 Allergies Allergy/AdvReac Type Severity Reaction Status Date / Time metoclopramide (Reglan) Allergy Unknown Abdominal Verified 10/21/24 17:30 Pain Review of Systems Review of Systems: Yes Unobtainable due to mental status PMFSH Past Medical History Medical History Substance abuse Asthma Social History Social History Unable to assess alcohol history related to: Unknown Alcohol intake: current Alcohol intake frequency: a few times a month Patient Tobacco Use Status: Current everyday Tobacco user Substance Use Type: Heroin Advance Directives: No Advance Directives Information Provided: No Physical Exam ED Vital Signs: Vital Signs - 24 hr 10/21/24 17:28 10/21/24 20:41 10/21/24 21:26 Temperature 97.9 F 97.7 F 97.7 F Pulse Rate 78 72 86 Respiratory Rate 20 18 12 Blood Pressure 120/69 98/62 93/53 L Pulse Oximetry 96 93 97 Oxygen Delivery Method Room Air Room Air Room Air 10/21/24 22:23 10/22/24 03:22 Temperature 98.2 F Pulse Rate 65 59 Respiratory Rate 12 16 Blood Pressure 105/57 L 155/73 H Pulse Oximetry 96 99 Oxygen Delivery Method Room Air Room Air BMI result Body Mass Index 25.7 Const Other: Appearance: Somnolent, wakes up to name, starts yelling random noises then falls back asleep, Eyes: Pupils equal, round and reactive to light. ENT: Pharynx normal. Neck: Normal inspection. Neck supple. No lymph nodes noted. No crepitus CVS: Normal heart rate and rhythm. Pulses normal. Normal S1 and S2 Respiratory: No respiratory distress. Breath sounds normal. No Wheezing. No rales Abdomen: Soft and nontender. No rigidity. No distention. Skin: Skin warm and dry. Normal skin color. Normal skin turgor. Extremities: No lower extremity edema. No Lacerations. No Rash Neuro: Patient unable to participating cranial nerve assessment Psych: calm, under the influence of alcohol versus drugs Course Course Course Narrative: Patient's vitals are stable. All of patient's labs and imaging pending Medical Decision Making Medical Decision Making [facility] Narrative: Patient has been seen here in the emergency room multiple times in the past, most common causes polysubstance abuse/overdose. Patient does wake up, but is not making any sense. Patient was found on the floor. All of patient's labs and imaging pending, vitals stable My interpretation of labs: No significant abnormality in patient's hematology or chemistry, ETOH negative Patient has not provided a urine sample yet. Urine toxicology pending My interpretation of head CT, no acute abnormality. Radiology report pending. Patient's vitals stable, oxygen saturation 97% on room air. Patient wakes up easily, looks around and falls back asleep Sign-out given to my colleague Dr. Mercedes 8:03 AM 10/22/2024 (Dr. Lorene Mercedes, D.O.) patient improved, ambulatory in the emergency department without assistance. Refusing detox. Stable for discharge at this time. Differential Diagnosis Differential Diagnoses: The differential diagnosis associated with the presentation includes (Polysubstance abuse, alcohol abuse, head injury) Admission/Observation Consideration of admission/observation: Escalation of care including admission/observation considered (Given patient's presentation, observation has been considered) Lab Data [facility] Lab Attestation statement: I reviewed the patient's lab results. 10/21/24 19:38 10/21/24 19:38 Labs: Lab Results 10/21/24 Range/Units 19:38 WBC 6.4 (4.8-10.8) X10*3/uL RBC 3.52 L (4.20-5.50) X10*6/uL Hgb 11.2 L (12.0-16.0) g/dl Hct 34.3 L (37.0-47.0) % MCV 97.4 (80.0-98.0) fL MCH 31.8 (27.0-33.0) pg MCHC 32.7 (31.0-35.0) g/dl RDW 14.0 (11.0-16.0) % Plt Count 194 (160-400) X10*3/uL MPV 9.3 L (9.4-12.3) fL Immature Gran % (Auto) 0.2 (0.0-0.4) % Neut % (Auto) 61.1 (45-73) % Lymph % (Auto) 28.2 (20-40) % [place]isco[place] % (Auto) 8.6 (2-11) % Eos % (Auto) 1.7 (0-4) % Baso % (Auto) 0.2 (0-2) % Lymph # (Auto) 1.8 (1.2-4.9) X10*3/uL [place] # (Auto) 0.6 (0.1-1.2) X10*3/uL Eos # (Auto) 0.1 (0.0-0.4) X10*3/uL Baso # (Auto) 0.0 (0.0-0.2) X10*3/uL Abs Immat Gran (auto) 0.01 (0.00-0.03) X10*3/uL Absolute Neuts (auto) 3.9 (2.0-8.3) x10*3/uL Absolute Nucleated RBC 0.000 (0.0-0.012) X10*3/uL Nucleated RBC % (auto) 0.0 (0.0-0.2) /100WBC Sodium 147 H (135-145) mmol/L Potassium 4.3 (3.3-5.1) mmol/L Chloride 111 H (96-108) mmol/L Carbon Dioxide 27 (22-29) mmol/L Anion Gap 13 (12-20) BUN 18 H (9-16) mg/dL Creatinine 1.08 (0.5-1.4) mg/dL Estim Creat Clear Calc 47.2 Estimated GFR 50 Random Glucose 84 (60-115) mg/dL Calcium 9.1 (8.4-10.2) mg/dL Total Bilirubin 0.4 (0.0-1.0) mg/dL Direct Bilirubin 0.1 (0.0-0.5) mg/dL AST 28 (5-31) U/L ALT 17 (0-31) U/L Alkaline Phosphatase 75 (39-117) U/L Total Protein 6.8 (6.5-8.0) g/dL Albumin 3.8 (3.5-5.0) g/dL Ethyl Alcohol < 10 mg/dL Independent Interpretation I performed an independent interpretation of an: CT Scan Critical Care Time Critical Care Time Critical Care Time: Yes Total Critical Care Time: 35 Attestation: I have personally provided critical care time. Time includes review of lab data, radiology results, discussion with consultants, and monitoring for potential decompensation. Intervention performed as documented. Discharge Plan Discharge Clinical Impression: Polysubstance abuse Patient Disposition: Home, Self-Care Instructions: Polysubstance Use Disorder (ED) Additional Instructions: Alcohol use disorder You were seen in the Emergency Department today for treatment of alcohol use disorder.? You may have been given medications to help with your withdrawal symptoms.? Please do not drink alcohol with them. This is very dangerous and can cause respiratory depression or other adverse reactions depending on the medication. If you would like to cut down or stop your alcohol use please consider calling our outpatient Addiction Treatment office:? [facility] (M-F 9a-5p) [address] [place] [phone] ? You have also been given a list of treatment providers in the area that can assist as well.? If you experience seizures, vomiting blood, black stools, falls, severe headache, chest pain, fevers, trouble breathing, hallucinations or any other concerns you need to call 911 or seek immediate care. Please stay hydrated. Prescriptions: No Action permethrin [Elimite] 5 % cream 1 appl topical Q14D Qty: 60 1RF Rx Instructions: apply second treatment 14 days after first treatment if live lice remain naproxen [Naprosyn] 500 mg tablet 500 mg PO BID Qty: 20 0RF doxycycline monohydrate 100 mg capsule 100 mg PO BID 10 Days Qty: 20 0RF cephalexin 500 mg capsule 500 mg PO Q12H 7 Days Qty: 14 0RF ibuprofen 600 mg tablet 600 mg PO Q6H PRN (Reason: pain) Qty: 60 0RF Print Language: Rwandan
[2024-10-21 19:40] LABS: MANUAL DIFF FLAG NO
[2024-10-21 19:45] LABS: Hematocrit 34.3 % (37.0-47.0); Hemoglobin 11.2 g/dl (12.0-16.0); Imm Gran Abs Auto 0.01 X10*3/uL (0.00-0.03); Imm Gran Pct Auto 0.2 % (0.0-0.4); Lymphocytes Absolute Auto 1.8 X10*3/uL (1.2-4.9); Mean Corpuscular HGB Conc 32.7 g/dl (31.0-35.0); Mean Corpuscular Hemoglobin 31.8 pg (27.0-33.0); Mean Corpuscular Volume 97.4 fL (80.0-98.0); NRBC Abs Auto 0.000 X10*3/uL (0.0-0.012); NRBC Pct Auto 0.0 /100WBC (0.0-0.2); Platelet Count 194 X10*3/uL (160-400); Red Blood Count 3.52 X10*6/uL (4.20-5.50); White Blood Count 6.4 X10*3/uL (4.8-10.8)
[2024-10-21 20:01] LABS: Alanine Aminotransferase 17 U/L (0-31); Albumin Level 3.8 g/dL (3.5-5.0); Alkaline Phosphatase 75 U/L (39-117); Anion Gap 13 (12-20); Aspartate Amino Transferase 28 U/L (5-31); Blood Urea Nitrogen 18 mg/dL (9-16); Calcium 9.1 mg/dL (8.4-10.2); Carbon Dioxide 27 mmol/L (22-29); Chloride 111 mmol/L (96-108); Creatinine Clr Calc Pharmacy 47.2; Estimated Glomerular Filt Rate 50; Potassium 4.3 mmol/L (3.3-5.1); Sodium 147 mmol/L (135-145); Total Protein 6.8 g/dL (6.5-8.0)
[2024-10-21 20:41] VITALS: BP 98/62; PULSE 72; RESP 18; TEMP 36.5; O2SAT 93
[2024-10-21 21:26] VITALS: BP 93/53; PULSE 86; RESP 12; TEMP 36.5; O2SAT 97
[2024-10-21 22:23] VITALS: BP 105/57; PULSE 65; RESP 12; TEMP 36.8; O2SAT 96
[2024-10-22 03:22] VITALS: BP 155/73; PULSE 59; RESP 16; O2SAT 99
--- NOTE | 2024-10-22 03:24 | PC.NURSE ---
Pt sleeping at the bedside in no apparent distress. Breaths are even, regular, and unlabored with equal chest rises. Pending disposition. Monitoring is ongoing.
--- NOTE | 2024-10-22 03:25 | PC.NURSE ---
pt has been asleep all shift. unable to assess.
[2024-10-22 08:23] VITALS: BP 138/64; PULSE 74; RESP 16; TEMP 36.4; O2SAT 100
[2024-10-22 09:00] VITALS: BP 138/64; PULSE 74; RESP 16; TEMP 36.4; O2SAT 100
== END 2024-10-22 09:00 | disposition home or self-care (01) ==
PROVIDERS: Emergency Medicine; Emergency Provider Emergency Medicine
DX: F19.10 Other psychoactive substance abuse, uncomplicated (principal); R41.82 Altered mental status, unspecified
CPT/HCPCS: 36415; 70450; 80048; 80076; 80307; 85025; 99284; 99291

== ENCOUNTER → 2024-10-21 19:05 | Outpatient (BNV) | payer OTHER, SELFPAY | PROVIDERS: Emergency Provider Emergency Medicine; Visit Provider Radiology Diagnostic Radiology | DX: R41.82 Altered mental status, unspecified (principal) | CPT/HCPCS: 70450 ==

== ENCOUNTER 2024-12-17 04:42 | Emergency (ER) | payer OTHER, SELFPAY ==
[2024-12-17] VITALS (11 sets, daily range): BP systolic 102–189; BP diastolic 45–110; PULSE 58–98; RESP 12–20; TEMP 36.6–37; O2SAT 94–100; BMI 27.4
--- NOTE | ~2024-12-17 | CT_ITS ---
EXAMINATION: CT CERVICAL SPINE WITHOUT IV CONTRAST HISTORY: trauma. TECHNIQUE: Helical CT of the cervical spine was performed per standard departmental protocol. Coronal and sagittal reformatted images were also evaluated. One or more of the following techniques was used for dose reduction: Automated exposure control, adjustment of the mA and/or kV according to patient size, use of iterative reconstruction technique. DLP: 277 mGy-cm COMPARISON: Comparison is made with the prior examination dated 06/12/2023. FINDINGS: CERVICAL SPINE: The vertebral bodies maintain normal height and alignment without evidence of fracture or subluxation. There is moderate degenerative disc disease at the C4-5, C5-6, C6-7 levels, with disc space narrowing and osteophyte formation. Evaluation for disc pathology is limited by lack of intrathecal contrast material, however. BRAIN: The visualized portion of the brain is unremarkable. SINUSES: The visualized paranasal sinuses, mastoid air cells and middle ear cavities are unremarkable. LUNG APICES: The visualized lung apices are clear. SOFT TISSUES: The visualized paraspinal soft tissues are unremarkable. CT/CT cervical spine wo IV con IMPRESSION: No evidence of fracture or malalignment of the cervical spine. Degenerative changes as described. Electronically signed by: Jhon Kerr MD 12/17/2024 02:31 PM EDT
--- NOTE | ~2024-12-17 | CT_ITS ---
EXAMINATION: CT HEAD WITHOUT IV CONTRAST HISTORY: trauma. TECHNIQUE: Unenhanced helical CT of the head was performed per standard departmental protocol. Coronal and sagittal reformats of the head were also evaluated. One or more of the following techniques was used for dose reduction: Automated exposure control, adjustment of the mA and/or kV according to patient size, use of iterative reconstruction technique. DLP: 652 mGy-cm COMPARISON: There are no prior studies available for comparison. FINDINGS: BRAIN: Again seen is a focus of encephalomalacia in the left frontal lobe, consistent with an old infarct. The brain parenchyma is otherwise unremarkable. There is normal michael/white differentiation. The ventricular system is normal in size and configuration. There is no mass effect or midline shift. No intra- or extra-axial fluid collections are identified. SINUSES: The visualized paranasal sinuses are clear. The mastoid air cells and middle ear cavities are well pneumatized. ORBITS: The visualized orbits are unremarkable. BONES/SOFT TISSUES: The extracranial soft tissues are unremarkable. The calvarium is intact. No suspicious lytic or sclerotic lesions. CT/CT head/brain wo IV con IMPRESSION: No acute intracranial abnormality. Electronically signed by: Jhon Kerr MD 12/17/2024 02:28 PM EDT
--- NOTE | 2024-12-17 04:47 | ECG_ITS ---
Test Reason : MED CLEARANCE Blood Pressure : */* mmHG Vent. Rate : 73 BPM Atrial Rate : 73 BPM P-R Int : 120 ms QRS Dur : 82 ms QT Int : 444 ms P-R-T Axes : 79 71 53 degrees QTcB Int : 489 ms Sinus rhythm with Premature atrial complexes Poor R wave progression possibly lead misplacement Abnormal ECG When compared with ECG of 31-Aug-2024 11:08, Premature atrial complexes are now Present Referred By: Carolin Peter Electronically Signed By: JEANETH PRITCHARD MD
[2024-12-17] MEDS: Naloxone HCl Nasal 4 MG SPRAY NOSTRILALT (04:58)
--- NOTE | 2024-12-17 05:16 | PC.NURSE ---
pt unresponsive, vital signs stable, not talking to staff, JAZMÍN Saldana at bedside with this RN and tech, pupils pinpoint, 4mg Narcan given intranasal, pt immediately woke up upset that she was given narcan, refusing to answer questions, refusing blood work and EKG at this time.
--- NOTE | 2024-12-17 05:17 | ED.GENADULT ---
HPI - General Adult General Chief complaint: Fall Stated complaint: WEAKNESS/DIZZINESS Time Seen by Provider: 12/17/24 04:49 Source: EMS Limitations: other (Intoxicated, uncooperative) History of Present Illness ED Provider: Carolin Peter PA-C HPI narrative: 69-year-old female with a history of polysubstance abuse and asthma who presents after being found intoxicated in the street. Patient was found by [employer] police on the ground in [place], when EMS arrived, she stated that she had ?fallen earlier in the day and ?. History very limited as the patient is not being cooperative, not engaging in conversation so as to obtain detailed history. Related Data Home Medications ?Medication ?Instructions ?Recorded ?Confirmed methadone 10 mg/mL oral 65 mg PO DAILY 12/17/24 12/17/24 concentrate (Methadone Intensol) Previous Rx's ?Medication ?Instructions ?Recorded permethrin 5 % topical cream 1 appl topical Q14D 2 doses #60 03/18/20 (Elimite) grams naproxen 500 mg tablet (Naprosyn) 500 mg PO BID #20 tabs 08/05/20 ibuprofen 600 mg tablet 600 mg PO Q6H PRN pain #60 tabs 03/05/22 Allergies Allergy/AdvReac Type Severity Reaction Status Date / Time metoclopramide (Reglan) Allergy Unknown Abdominal Verified 12/17/24 04:52 Pain Review of Systems Review of Systems: Unable to obtain as the patient is a uncooperative Yes all other systems are reviewed and are negative PMFSH Past Medical History Attestation statement: The following information was validated with the patient. Medical History Substance abuse Asthma Social History Social History Unable to assess alcohol history related to: Refusing to respond Alcohol intake: current Alcohol intake frequency: a few times a month Patient Tobacco Use Status: Current everyday Tobacco user Use of substances other than those prescribed or required for medical reasons: Refusing to respond Substance Use Type: Heroin Advance Directives: No Physical Exam ED Vital Signs: Vital Signs - 24 hr 12/18/24 04:08 12/18/24 08:00 12/18/24 10:00 Temperature 98 F 98.0 F 98 F Pulse Rate 67 70 64 Respiratory Rate 20 17 20 Blood Pressure 137/60 150/77 H 151/71 H Pulse Oximetry 99 95 98 Oxygen Delivery Method Room Air Room Air Room Air 12/18/24 12:00 12/18/24 12:11 12/18/24 16:00 Temperature 98 F 98 F 98.2 F Pulse Rate 70 70 70 Respiratory Rate 20 20 16 Blood Pressure 149/70 H 149/70 H 140/71 H Pulse Oximetry 98 98 99 Oxygen Delivery Method Room Air Room Air Room Air BMI result Body Mass Index 27.4 Const Other: Somnolent, pupils pinpoint, not answering questions, we will not respond to verbal stimuli, does respond to sternal rub, no obvious sign of head trauma on exam, Orientation/consciousness: oriented to person Eyes Other: Pinpoint pupils Chest Other: there are no abrasions or contusions noted over her torso her back Resp Effort & Inspection: normal respiratory effort Cardio Other: Normal peripheral perfusion Skin Other: Warm dry no rash Neuro General: oriented to person, no focal motor deficits and CN's II-XI intact bilaterally Extrem Other: Moving all extremities independently, pulling away from lead placement as we are trying to obtain vitals, Psych Other: Uncooperative, intoxicated Course Reevaluation(s) Reevaluation #1: Signed out to day team pending sobriety, reassessment, labs, CT scan head neck Reevaluation #2: 6:29 AM signed out to me pending labs and ct ,she has hx of polysubstance abuse and brought here with altered mental status,suspect drug abuse Time: 06:30 Reevaluation #3: 01/2025 12:15 patient is more awake and alert right now we will consult comprehensive care 12/17/2024 15: 50 she is now awake and an alert attempted ambulation she has a very unsteady. Head CT and C-spine negative labs okay. She is not ready to be discharged ,she can not ambulate safely because weakness,will get PT eval also case folder shreyas,will give IV fluids 12/18/24 11:28 SUDHA Wilson: Markus Dailey from case management patient is declining detox offered by the care team. She also declined the short-term rehab recommended by physical therapy. She is agreeable to discharge home. Requesting methadone dose prior to discharge, will order once verified by nurse. Observation care revealed that patient does not meet medical necessity for hospitalization. Final disposition discussed with patient. The patient completed observation care at 11:28 on 12/18/24. Time: 15:50 Medications Administered Discontinued Medications Generic Name Dose Route Start Last Admin Trade Name Thais PRN Reason Stop Dose Admin Sodium Chloride 1,000 mls @ 999 mls/hr 12/17/24 06:30 12/17/24 08:12 Ns IVCONT 12/17/24 07:30 Infused .Q1H1M BLOSSOM Infusion Sodium Chloride 1,000 mls @ 999 mls/hr 12/17/24 15:30 12/17/24 18:23 Ns IVCONT 12/17/24 16:30 Infused .Q1H1M BLOSSOM Infusion Methadone HCl 65 mg 12/18/24 12:00 12/18/24 12:26 Methadone Hcl 20 Mg/2 Ml Oral.Conc PO 12/18/24 12:01 65 mg ONCE ONE Administration Naloxone HCl 4 mg 12/17/24 04:53 12/17/24 04:58 Naloxone Hcl Nasal 4 Mg [place] NOSTRILALT 12/17/24 04:54 4 mg ONCE ONE Administration Medical Decision Making Medical Decision Making MDM Narrative: 69-year-old female with a history of polysubstance abuse and asthma who presents after being found intoxicated in the street. Patient was found by [place] police on the ground in [place], when EMS arrived, she stated that she had ?fallen earlier in the day and ?. History very limited as the patient is not being cooperative, not engaging in conversation so as to obtain detailed history. Problem: Polysubstance abuse History: Per EMS I have considered the following differential diagnoses: SI, HI, decompensated psychiatric illness, drug/alcohol intoxication Plan: Patient states that she fell, it would be ideal to scan her head and neck, the patient is being very uncooperative. Given her somnolence with pinpoint pupils, I am giving an intranasal dose of Narcan. We will attempt to collect screening labs including serum ethanol and drug screen. I have independently reviewed the following tests: Labs: CT brain: CT cervical spine: Lab Data 12/17/24 06:07 12/17/24 06:07 Labs: Lab Results 12/17/24 12/17/24 12/17/24 Range/Units 05:58 06:07 10:11 WBC 7.6 (4.8-10.8) X10*3/uL RBC 4.05 L (4.20-5.50) X10*6/uL Hgb 12.9 (12.0-16.0) g/dl Hct 39.2 (37.0-47.0) % MCV 96.8 (80.0-98.0) fL MCH 31.9 (27.0-33.0) pg MCHC 32.9 (31.0-35.0) g/dl RDW 13.5 (11.0-16.0) % Plt Count 244 D (160-400) X10*3/uL MPV 9.3 L (9.4-12.3) fL Immature Gran % (Auto) 0.9 H (0.0-0.4) % Neut % (Auto) 60.1 (45-73) % Lymph % (Auto) 31.5 (20-40) % [place] % (Auto) 6.5 (2-11) % Eos % (Auto) 0.7 (0-4) % Baso % (Auto) 0.3 (0-2) % Lymph # (Auto) 2.4 (1.2-4.9) X10*3/uL [place] # (Auto) 0.5 (0.1-1.2) X10*3/uL Eos # (Auto) 0.1 (0.0-0.4) X10*3/uL Baso # (Auto) 0.0 (0.0-0.2) X10*3/uL Abs Immat Gran (auto) 0.07 H (0.00-0.03) X10*3/uL Absolute Neuts (auto) 4.6 (2.0-8.3) x10*3/uL Absolute Nucleated RBC 0.000 (0.0-0.012) X10*3/uL Nucleated RBC % (auto) 0.0 (0.0-0.2) /100WBC Sodium 142 (135-145) mmol/L Potassium 3.6 (3.3-5.1) mmol/L Chloride 107 (96-108) mmol/L Carbon Dioxide 24 (22-29) mmol/L Anion Gap 15 (12-20) BUN 15 (9-16) mg/dL Creatinine 0.81 (0.5-1.4) mg/dL Estim Creat Clear Calc 60.1 Estimated GFR > 60 POC Glucose 85 (60-115) mg/dL Random Glucose 80 (60-115) mg/dL Calcium 9.4 (8.4-10.2) mg/dL Magnesium 2.1 (1.6-2.6) mg/dL Total Bilirubin 0.5 (0.0-1.0) mg/dL AST 34 H (5-31) U/L ALT 15 (0-31) U/L Alkaline Phosphatase 94 (39-117) U/L Total Protein 7.4 (6.5-8.0) g/dL Albumin 4.2 (3.5-5.0) g/dL Salicylates < 5.0 L (15-30) mg/dL Urine Opiates Screen Not Detected (Not Detect) Ur Buprenorphine Scrn Not Detected (Not Detect) ng/mL Ur Oxycodone Screen Not Detected (Not Detect) ng/mL Urine Methadone Screen Positive H (Not Detect) ng/mL Urine Fentanyl Screen POSITIVE H (Not Detect) Acetaminophen < 3 (<30) mcg/mL Ur Barbiturates Screen Not Detected (Not Detect) Ur Phencyclidine Scrn Not Detected (Not Detect) Ur Amphetamines Screen Not Detected (Not Detect) U Benzodiazepines Scrn Not Detected (Not Detect) Urine Cocaine Screen POSITIVE H (Not Detect) U Marijuana (THC) Screen Not Detected (Not Detect) Ethyl Alcohol < 10 mg/dL Discharge Plan Discharge Clinical Impression: Polysubstance abuse, Weakness Patient Disposition: Home, Self-Care Additional Instructions: Opiate use disorder You were seen in our Emergency Department today for treatment of opiate use disorder. You may have been dosed with medication for opiate use disorder (MOUD) in the form of suboxone or methadone. You may experience feeling some withdrawal symptoms and this is normal. The? dose in the Emergency Department is a starting dose and meant to be titrated up once you follow up with a clinic. Please do not feel discouraged, it is a process. The nurse has reviewed with you where to follow up and what information to bring with you, to continue treatment. You also may have been given naloxone (narcan) to take home with you. This medication is used to potentially treat opiate overdose. If you decide you want to stop or cut down on how much you?re using, you can call or walk into our outpatient Addiction Treatment office: [facility] (M-F 9am-5p) [address], [address] [phone] You may have been provided with safer injection?items, please take time to take care of YOU and your health. Use new supplies whenever possible to lessen the chances of infections and other illnesses.? ?If you need more supplies, please go [facility],? [address] [place] [address] OR you can call or text to coordinate delivery of safer supplies. You were also provided a list of several treatment providers in the area.? If you experience any worsening symptoms you cannot control please return to the ED or call 911. Please follow up at your next appointment. Things to look out for are fevers, chest pain, shortness of breath, severe pain, dizziness, fainting or any other concerns. Prescriptions: No Action permethrin [Elimite] 5 % cream 1 appl topical Q14D Qty: 60 1RF Rx Instructions: apply second treatment 14 days after first treatment if live lice remain naproxen [Naprosyn] 500 mg tablet 500 mg PO BID Qty: 20 0RF ibuprofen 600 mg tablet 600 mg PO Q6H PRN (Reason: pain) Qty: 60 0RF methadone [Methadone Intensol] 10 mg/mL Concentrate 65 mg PO DAILY Referrals: Merna Espinosa NP [Primary Care Provider, Medical] Interventions: ED Discharge Assessment Last Done: 12/18/24 12:11 Discharge Date/Time: 12/18/24 16:57 Print Language: Setswana
--- NOTE | 2024-12-17 05:20 | MHC.EDTECH ---
Addendum entered by Julienne Grayson 12/17/24 12:34: EKG was obtained. Addendum entered by Julienne Grayson 12/17/24 10:00: Pt is still very uncooperative. Lab were obtained by previous tech. Continuing to work on attempting EKG with Pt. Original Note: Unable to obtain EKG or labs, patient is uncooperative at the moment. Will attempt when patient is cooperative.
--- OUTSIDE RECORDS SUMMARY | 2024-12-17 05:45 | XMS_ITS | Clinical Summary ---
Author Organization [employer] Address [address] [place] [address] Care Team Providers Care Stucco Plasterer Name Role Phone IdaliaAdriana cortez SUDHA Primary Care Provider [phone] Allergies Active Allergy Reactions Criticality Noted Date [...] Opioid dependence 09/28/2011 Posttraumatic stress disorder 09/28/2011 Encounters Date Type Department Care Team Description 10/31/2024 Patient Outreach [address] [address] Darrell Freeman Recovery Supports from Last 3 Months Immunizations Immunization Administration Dates Next Due Hep [...] - Risk 60-74 years 1-dose series) 2016 Tobacco Screening 07/26/2024 07/27/2023 COVID-19 Vaccine ( - season) 2024 06/19/2022, 01/02/2022, 07/14/2020 Influenza Vaccine (#1) 2024 3, 01/11/2021, 05/14/2020, Additional history exists DTaP/Tdap/Td Vaccines [...] patient's age to complete this topic Insurance * Guarantor: Elvira Davies Account Type Relation to Patient Date of Phone Billing Address Personal/Family Self [address] [address] [facility] < 66 [place] [phone] * Guarantor: Elvira Davies Account Type Relation to Patient Date of Phone Billing Address Personal/Family Self [address] [phone] * Guarantor: Elvira Davies Account Type Relation to Patient Date of Phone Billing Address Personal/Family Self [address] [phone] * Guarantor: Elvira Davies Account Type Relation to Patient Date of Phone Billing Address Personal/Family Self [address] [address] Care Teams Stucco Plasterer Relationship Specialty Start Date End Date Adriana Ernandez NP [address] [place] [id number] PCP - General Family Medicine 03/15/23
[2024-12-17 06:01] LABS: Glucose, Whole Blood 85 mg/dL (60-115)
[2024-12-17 06:13] LABS: MANUAL DIFF FLAG NO
[2024-12-17 06:22] LABS: Hematocrit 39.2 % (37.0-47.0); Hemoglobin 12.9 g/dl (12.0-16.0); Imm Gran Abs Auto 0.07 X10*3/uL (0.00-0.03); Imm Gran Pct Auto 0.9 % (0.0-0.4); Lymphocytes Absolute Auto 2.4 X10*3/uL (1.2-4.9); Mean Corpuscular HGB Conc 32.9 g/dl (31.0-35.0); Mean Corpuscular Hemoglobin 31.9 pg (27.0-33.0); Mean Corpuscular Volume 96.8 fL (80.0-98.0); NRBC Abs Auto 0.000 X10*3/uL (0.0-0.012); NRBC Pct Auto 0.0 /100WBC (0.0-0.2); Platelet Count 244 X10*3/uL (160-400); Red Blood Count 4.05 X10*6/uL (4.20-5.50); White Blood Count 7.6 X10*3/uL (4.8-10.8)
--- NOTE | 2024-12-17 06:22 | PC.NURSE ---
pt had a bowel movement, full bed change, IV line started in R hand.
[2024-12-17 06:39] LABS: Acetaminophen LAB < 3 mcg/mL (<30); Alanine Aminotransferase 15 U/L (0-31); Albumin Level 4.2 g/dL (3.5-5.0); Alkaline Phosphatase 94 U/L (39-117); Anion Gap 15 (12-20); Aspartate Amino Transferase 34 U/L (5-31); Blood Urea Nitrogen 15 mg/dL (9-16); Calcium 9.4 mg/dL (8.4-10.2); Carbon Dioxide 24 mmol/L (22-29); Chloride 107 mmol/L (96-108); Creatinine Clr Calc Pharmacy 60.1; Estimated Glomerular Filt Rate > 60; Magnesium 2.1 mg/dL (1.6-2.6); Potassium 3.6 mmol/L (3.3-5.1); Salicylate < 5.0 mg/dL (15-30); Sodium 142 mmol/L (135-145); Total Protein 7.4 g/dL (6.5-8.0)
--- NOTE | 2024-12-17 06:52 | PC.NURSE ---
this RN was in room with another pt, this rn left room to check on pt when pt was noted to be on the floor. pt assisted back into bed, offers no complaints, vss. aware. boring machine operator at bedside to obtain sitter
--- NOTE | 2024-12-17 08:07 | PC.NURSE ---
Pt remains responsive to simple directions but is curled up in position. Refuses to keep clothes and monitor equp on. CT not able to be completed at this time as pt will not stay still nor flat.
--- NOTE | 2024-12-17 09:45 | PC.NURSE ---
Pt has been intermittently awake asking to void- placed on bedpan but does not void on bedpan and is incontinent in bed. Still not following command to lay flat/straight for CT- still attempting to get Urine
--- NOTE | 2024-12-17 10:10 | PC.NURSE ---
Pt able to void on bedpan, Urine will be sent now- still does not follow commands enough to lay flat/stright for CT
--- NOTE | 2024-12-17 10:10 | PC.NURSE ---
Pt also attempted to get OOB several times t has sitter for safety. Once she is sitting she falls alseep and falls over. Pt on sezure precautions and remains with sitter for safety.
[2024-12-17 10:33] LABS: Cannabinoid Screen Urine Not Detected (Not Detect)
--- NOTE | 2024-12-17 16:17 | HE.PHANOTE ---
Addendum entered by Hansa Rasmussen [facility] 12/18/24 12:10: LAST DOSE GIVEN ON 12/15/24 @0709 PER LANIE AT [facility]. Original Note: Re Methadone pt receives 65mg from [facility] in [place]
--- NOTE | 2024-12-17 16:33 | MHC.CM.ED ---
Addendum entered by Julia Bal 12/17/24 20:04: Pt continues to sleep.. Did not respond to name x2. Sitter at bedside for safety. States patient ate bites of sandwich, pudding and juice. Pt unable to participate in CM interview. Addendum entered by Julia Bal 12/17/24 18:22: Pt cleared by CARE team. Pt is refusing detox/drug rehab services at this time per CARE team. Pt takes 65 mg of methadone daily at [facility] in [place]. Original Note: CM attempted to meet with patient. Pt is very sleepy. Rouses to name, the closes eyes and goes back to sleep. CM explained that patient would stay here overnight and have a PT assessment in the morning. CM will meet with patient when she is more awake. Dr. King aware
--- NOTE | 2024-12-17 17:58 | PC.NURSE ---
[facility] CONSULT OUTPATIENT RECOVERY SUPPORT NOTE: Went to ED to discuss substance use and provide outpatient recovery support options to Elvira after receiving consult referral from her provider. Elvira was in the presence of a hospital sitter for safety who shared that she had recently fallen asleep; Elvira was soundly sleeping- She was not rousable to her name, will follow up with her at a later time.?
--- NOTE | 2024-12-17 19:41 | MHC.EDTECH ---
Pt asked to use the bedpan and after several minutes of trying, Pt stated she is unable to go. RN aware.
--- NOTE | 2024-12-17 21:51 | MHC.EDTECH ---
Pt able to urinate in bed salas.
--- NOTE | 2024-12-18 00:30 | MHC.EDTECH ---
Pt agreeable to cam. This was placed for Pt. Call tierney within reach, camera in room
[2024-12-18 04:08] VITALS: BP 137/60; PULSE 67; RESP 20; TEMP 36.6; O2SAT 99
[2024-12-18 08:00] VITALS: BP 150/77; PULSE 70; RESP 17; TEMP 36.7; O2SAT 95
--- NOTE | 2024-12-18 09:55 | PC.NURSE ---
patient noted to be out of bed w/o assistance despite being a high fall risk. VMT camera not intact per VMT staff. fax form filled out/brought to department. camera turned on for safety precautions. pt transitioned to hospital bed to promote comfort. bed alarm also turned on for safety precautions. pending PT/CM evaluation. plan of care ongoing. call tierney placed within reach.
[2024-12-18 10:00] VITALS: BP 151/71; PULSE 64; RESP 20; TEMP 36.6; O2SAT 98
[2024-12-18 12:00] VITALS: BP 149/70; PULSE 70; RESP 20; TEMP 36.6; O2SAT 98
[2024-12-18 12:11] VITALS: BP 149/70; PULSE 70; RESP 20; TEMP 36.6; O2SAT 98
[2024-12-18] MEDS: methADONE HCl 20 MG/2 ML ORAL.CONC 65 MG PO (12:26)
--- NOTE | 2024-12-18 13:44 | MHC.CM.ED ---
Patient remains in ER oveflow. Physical therapy eval completed. STR is recommended. Met with patient in regards to discharge planning. Patient declining STR and requesting to go home. Patient does not have transport. Due to impaired ambulation and impulsivity, [facility] booked for 430pm. Patient, Kelley RN and Crystal HADOOP ARCHITECT aware. Continue to monitor for d/c needs.
--- NOTE | 2024-12-18 13:57 | PC.NURSE ---
[facility] CONSULT OUTPATIENT RECOVERY SUPPORT NOTE: Upon returning to meet with Elvira, who had the blankets pulled up around her face, she verbally acknowledged her name and agreed to speak to determine if any services were needed or appropriate at this time. At this time, she appeared anxious and a bit confused, and stated, ?I want to go home,I just want to go home- I?m scared? when asked what she was afraid of she said, ?there?s people after me.? Elvira stated that she did receive her methadone, but they did not give it with water and it made her stomach hurt. Elvira refused outpatient recovery resources.
[2024-12-18 16:00] VITALS: BP 140/71; PULSE 70; RESP 16; TEMP 36.8; O2SAT 99
== END 2024-12-18 16:57 | disposition home or self-care (01) ==
PROVIDERS: Physician Assistant Medical; Emergency Provider Emergency Medicine; PCP Registered Nurse Community Health
DX: F19.90 Other psychoactive substance use, unspecified, uncomplicated (principal); R42 Dizziness and giddiness; Z79.899 Other long term (current) drug therapy
CPT/HCPCS: 36415; 70450; 72125; 80053; 80143; 80179; 80307; 82947; 83735; 85025; 93005; 97162; 99285; S9485

== ENCOUNTER → 2024-12-17 04:47 | Outpatient (BNV) | payer OTHER, SELFPAY | PROVIDERS: Emergency Provider Emergency Medicine; Visit Provider Internal Medicine Cardiovascular Disease | DX: I49.1 Atrial premature depolarization (principal) | CPT/HCPCS: 93010 ==

== ENCOUNTER → 2024-12-17 04:53 | Outpatient (BNV) | payer OTHER, SELFPAY | PROVIDERS: Emergency Provider Emergency Medicine; Visit Provider Radiology Diagnostic Radiology | DX: M50.322 Other cervical disc degeneration at C5-C6 level (principal); S09.90XA Unspecified injury of head, initial encounter | CPT/HCPCS: 70450; 72125 ==

== ENCOUNTER 2025-01-20 12:54 | Outpatient (REF) | payer OTHER, SELFPAY ==
--- NOTE | ~2025-01-20 | XR_ITS ---
EXAMINATION: XR FOREARM, RIGHT CLINICAL INFORMATION: Puncture wound by wire fence, foreign body search COMPARISON: None available. TECHNIQUE: AP and lateral views of the right forearm were obtained. FINDINGS: No metallic foreign bodies identified. No fracture is apparent. XR/XR forearm RT 2V IMPRESSION: No radiopaque foreign body. Electronically signed by: Ra Arnold MD 01/20/2025 01:29 PM EDT RP
--- OUTSIDE RECORDS SUMMARY | 2025-01-20 10:20 | XMS_ITS | Encounter Summary ---
Author Organization [employer] Address [address] [place] [address] Care Team Providers Care Warehouse Order Picker Name Role Phone Adriana Ernandez SUDHA Primary Care Provider Reason for Visit * Reason Comments Hand Pain Encounter Details Date Type Department Care Team ([facility] st Contact Info) Description 01/20/2025 10:20 AM EDT Office Visit [facility] [address] [place] [address] Lidya Lazo MD [address] [place] [address] Puncture wound of right forearm, initial encounter (Primary Dx); Encounter for immunization Social History Tobacco Use Types Packs/Day Years [...] Orientation Straight 02/06/2022 10 :14 AM EDT documented as of this encounter Last Filed Vital Signs Vital Sign Reading Time Taken Comments Blood Pressure 117/77 01/20/2025 11:16 AM EDT Pulse 69 01/20/2025 11:16 AM EDT Temperature 36.6 C (97.9 F) 01/20/2025 11:16 AM EDT Respiratory Rate 16 01/20/2025 11:16 AM EDT Oxygen Saturation 96% 01/20/2025 11:16 AM EDT Inhaled Oxygen Concentration - - Weight 94.8 kg (209 lb) 01/20/2025 11:16 AM EDT Height - - Body Mass Index 39.49 01/11/2021 12:10 AM EDT documented in this encounter Progress Notes * Lidya Lazo MD - 01/20/2025 10:20 AM EDT Images from the original note were not included. SUBJECTIVE Elvira Davies is a 69 y.o. female patient of Adriana Ernandez NP who presents for right forearm wound. HPI Elvira was well until yesterday when she accidentally poked her hand on the top of a wire fence while throwing out the trash. She felt pain immediately, washed the area out with soap and water. Later that day, the area got red and swollen and painful. The pain persisted all night and she came to walk-in clinic to have it evaluated. She does not recall seeing a foreign body in the wound. She has not had any fevers or chills. She says her last tetanus shot was a long time ago. Review of Systems Constitutional: Positive for fever. Negative for chills. Skin: Positive for wound. OBJECTIVE Vitals: 01/20/25 1116 BP: 117/77 BP Location: Right arm Patient Position: Sitting BP Cuff Size: Adult Pulse: 69 Resp: 16 Temp: 97.9 ??F (36.6 ??C) TempSrc: Temporal SpO2: 96% Weight: 209 lb (94.8 kg) Physical Exam Constitutional: Appearance: She is not toxic-appearing. Cardiovascular: Pulses: Normal pulses. Pulmonary: Effort: Pulmonary effort is normal. Musculoskeletal: Right forearm: Swelling (Tender, erythematous subcutaenous swelling 1 cm x 1 cm near posteromedial distal forearm with surrounding halo of erythema.) and tenderness present. No bony tenderness. Arms: Neurological: General: No focal deficit present. Mental Status: She is alert. Psychiatric: Mood and Affect: Mood normal. Behavior: Behavior normal. Assessment/Plan Assessment/Plan Diagnoses and all orders for this visit: Puncture wound of right forearm, initial encounter - XR Forearm 2 Views Right; Future - TDAP VACCINE 7 yrs + - Keflex 500 mg TID x 7 days - Will refer to General Surgery if foreign body present on Xray. documented in this encounter Plan of Treatment Not on file documented as of this encounter Procedures Procedure Name Priority Date/Time Associated Diagnosis Comments XR FOREARM 2 VIEWS RIGHT STAT 01/20/2025 1:16 PM EDT Puncture wound of right forearm, initial encounter documented in this encounter Results * XR Forearm 2 Views Right (01/20/2025 1:16 PM EDT) Anatomical Region Laterality Modality Upper Extremities, Forearm Right Radio graphic Imaging 01/20/2025 1:16 PM EDT Narrative 01/20/2025 1:32 PM EDT [address] [address] XRay Report Signed Patient: Elvira Davies MR#: [id number] : 1955 Acct:[id number] Age/Sex: 69 / F ADM Date: 01/20/25 Loc: .HHCX Attending Dr: Lidya Lazo MD Ordering Physician: Lidya Lazo MD Date of Service: 01/20/25 Procedure(s): XR forearm RT 2V Accession Number(s): [id number] cc: Lidya Lazo MD Reason for Exam: FB EXAMINATION: XR FOREARM, RIGHT CLINICAL INFORMATION: Puncture wound by wire fence, foreign body search COMPARISON: None available. TECHNIQUE: AP and lateral views of the right forearm were obtained. FINDINGS: No metallic foreign bodies identified. No fracture is apparent. XR/XR forearm RT 2V IMPRESSION: No radiopaque foreign body. Electronically signed by: Ra Arnold MD 01/20/2025 01:29 PM EDT Dictated By: Ra Arnold MD Signed By: <Electronically signed by Ra Arnold MD in OV> 01/20/25 1329 DD/ 1316 TD/TT: 01/20/25 1322 Manager Transfusion: Procedure Note Donotuseinterpreter, Image - 01/20/[address] [address] XRay Report Signed Patient: Macho Davies#: [id number] : 6Acct:[id number] Age/Sex: 69 / FADM Date: 01/20/25 Loc: HO.HHCX Attending Dr: Lidya Lazo MD Ordering Physician: Lidya Lazo MD Date of Service: 01/20/25 Procedure(s): XR forearm RT 2V Accession Number(s): [id number] cc: Lidya Lazo MD Reason for Exam: FB EXAMINATION: XR FOREARM, RIGHT CLINICAL INFORMATION: Puncture wound by wire fence, foreign body search COMPARISON: None available. TECHNIQUE: AP and lateral views of the right forearm were obtained. FINDINGS: No metallic foreign bodies identified. No fracture is apparent. XR/XR forearm RT 2V IMPRESSION: No radiopaque foreign body. Electronically signed by: Ra Arnold MD 01/20/2025 01:29 PM EDT RP Dictated By: Ra Arnold MD Signed By: <Electronically signed by Ra Arnold MD in OV> 01/20/25 1329 DD/ 1316 TD/TT: 01/20/25 1322 Manager Transfusion: Lidya Lazo MD IMG XR PROCEDURES Final Resul t documented in this encounter Visit Diagnoses Diagnosis Puncture wound of right forearm, initial encounter- Primary Encounter for immunization documented in this encounter Care Teams Warehouse Order Picker Relationship Specialty Start Date End Date Adriana Ernandez NP [address] [place] [address] PCP - General Family Medicine 03/15/23 documented as of this encounter
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
--- OUTSIDE RECORDS SUMMARY | 2025-01-20 15:36 | XMS_ITS | Encounter Summary ---
Author Organization [employer] Address [address] [facility] 7t [place] [address] Care Team Providers Care Pantry Goods Worker Name Role Phone Adriana Ernandez NP Primary Care Provider Encounter Details Date Type Department Care Team (Latest Contact Info) Description 01/20/2025 Travel Social History Tobacco Use Types Packs/Day Years Used Date Smoking Tobacco: Every Day Cigarettes Passive Smoke Exposure: Past Smokeless Tobacco: Never Comments Unknown Sex and Gender Information Value Date Recorded Sex Assigned at Female 02/06/2022 10:14 AM EDT Legal Sex Female 10:14 AM EDT Gender Identity Female 02/06/2022 10:14 AM EDT Sexual Orientation Straight 02/06/2022 10 :14 AM EDT documented as of this encounter Plan of Treatment Not on file documented as of this encounter Visit Diagnoses Not on filedocumented in this encounter Care Teams Pantry Goods Worker Relationship Specialty Start Date End Date Adriana Ernandez NP [address] [place] [address] PCP - General Family Medicine 03/15/23 documented as of this encounter
== END 2025-01-20 12:55 | disposition home or self-care (01) ==
LOC: HO.HHCX 12:54
PROVIDERS: Visit Provider Internal Medicine
DX: S51.831A Puncture wound without foreign body of right forearm, initial encounter (principal)
CPT/HCPCS: 73090

== ENCOUNTER → 2025-01-20 12:55 | Outpatient (BNV) | payer OTHER, SELFPAY | PROVIDERS: Visit Provider Radiology Diagnostic Radiology | DX: S51.831A Puncture wound without foreign body of right forearm, initial encounter (principal) | CPT/HCPCS: 73090 ==

== ENCOUNTER 2025-02-07 23:48 | Emergency (ER) | payer OTHER, SELFPAY ==
[2025-02-08 00:01] VITALS: BP 92/76; PULSE 65; RESP 20; TEMP 36.2; O2SAT 92; BMI 25.2
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
[2025-02-08 04:31] VITALS: BP 112/66; PULSE 72; RESP 18; TEMP 36.2; O2SAT 97
[2025-02-08 05:34] VITALS: BP 139/56; PULSE 60; TEMP 36.2; O2SAT 97
--- NOTE | 2025-02-08 05:52 | PC.NURSE ---
ambulated with steady gait, no assistance to bathroom and produced a large, continent void of CYU. denies urinary symptoms or symptoms with ambulation
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
[2025-02-08 10:20] VITALS: BP 129/54; PULSE 72; RESP 16; O2SAT 96
--- NOTE | 2025-02-08 15:00 | PC.NURSE ---
Pt refused vitals on d/c.
[2025-02-08 15:46] VITALS: BP 0/0; PULSE 0; RESP 0; TEMP -17.7; TEMP 0; O2SAT 0
== END 2025-02-08 15:05 | disposition home or self-care (01) ==
PROVIDERS: Emergency Provider Emergency Medicine
DX: F14.10 Cocaine abuse, uncomplicated (principal); F10.129 Alcohol abuse with intoxication, unspecified; Y90.9 Presence of alcohol in blood, level not specified; F17.210 Nicotine dependence, cigarettes, uncomplicated
CPT/HCPCS: 99284